=== PATIENT | male | born 1970 | race Caucasian/White ===

== ENCOUNTER → 2020-04-29 09:08 | Outpatient (BNVA) | payer OTHER, SELFPAY | PROVIDERS: Family Provider Family Medicine; PCP Family Medicine; Referring Provider Family Medicine; Visit Provider Anesthesiology Pain Medicine | DX: M54.42 Lumbago with sciatica, left side (principal); M54.41 Lumbago with sciatica, right side; M54.9 Dorsalgia, unspecified; Z79.891 Long term (current) use of opiate analgesic | CPT/HCPCS: 99205 ==

== ENCOUNTER → 2020-05-13 13:19 | Outpatient (BNVA) | payer OTHER, SELFPAY | PROVIDERS: Family Provider Family Medicine; PCP Family Medicine; Visit Provider Anesthesiology Pain Medicine | DX: M47.816 Spondylosis without myelopathy or radiculopathy, lumbar region (principal); M54.9 Dorsalgia, unspecified | CPT/HCPCS: 64493; 64494; 64495; J3490 ==

== ENCOUNTER → 2020-05-26 09:11 | Outpatient (BNVA) | payer OTHER, SELFPAY | PROVIDERS: Family Provider Family Medicine; PCP Family Medicine; Visit Provider Anesthesiology Pain Medicine | DX: M51.17 Intervertebral disc disorders with radiculopathy, lumbosacral region (principal); M54.9 Dorsalgia, unspecified | CPT/HCPCS: 99213 ==

== ENCOUNTER → 2020-06-09 12:50 | Outpatient (BNVA) | payer OTHER, SELFPAY | PROVIDERS: Family Provider Family Medicine; PCP Family Medicine; Visit Provider Anesthesiology Pain Medicine | DX: M54.9 Dorsalgia, unspecified (principal); M54.16 Radiculopathy, lumbar region | CPT/HCPCS: 64483; J1040; J3490 ==

== ENCOUNTER → 2020-06-24 09:37 | Outpatient (BNVA) | payer OTHER, SELFPAY | PROVIDERS: Family Provider Family Medicine; PCP Family Medicine; Visit Provider Anesthesiology Pain Medicine | DX: M47.816 Spondylosis without myelopathy or radiculopathy, lumbar region (principal); M54.16 Radiculopathy, lumbar region; M51.36 Other intervertebral disc degeneration, lumbar region; M25.551 Pain in right hip; M25.552 Pain in left hip; M47.812 Spondylosis without myelopathy or radiculopathy, cervical region; M54.9 Dorsalgia, unspecified; Z79.891 Long term (current) use of opiate analgesic | CPT/HCPCS: 99214 ==

== ENCOUNTER 2020-06-25 08:54 | Outpatient (CLI) | payer OTHER, SELFPAY ==
--- NOTE | 2020-06-25 09:04 | XR_ITS ---
WS: [id number] CERVICAL SPINE TECHNIQUE: 3 views of the cervical spine CLINICAL INFORMATION: pain COMPARISON: None. FINDINGS: Straightening of the normal cervical lordosis. Mild spondylitic changes. Normal prevertebral soft tis sues. Normal C1-2 articulation. Mild facet arthropathy in the mid cervical spine. No acute cervical s pine findings. XR/XR cervical spine 4-5V [id number] IMPRESSION: Straightening of the normal cervical lordosis with mild spondylitic changes.
--- NOTE | 2020-06-25 09:04 | XR_ITS ---
WS: [id number] HIPS BILATERAL TECHNIQUE: 5 views bilateral hips Including pelvis CLINICAL INFORMATION: bilateral hip pain COMPARISON: None. FINDINGS: Normal bilateral hips. Normal anatomic alignment. No acute fractures. Normal femoral necks bilaterall y. XR/XR hip BI 3-4V wo/w pel [id number] IMPRESSION: Normal bilateral hips
== END 2020-06-25 08:55 | disposition home or self-care (01) ==
LOC: RADWPI 08:58
PROVIDERS: Family Provider Family Medicine; PCP Family Medicine; Visit Provider Anesthesiology Pain Medicine
DX: M54.2 Cervicalgia (principal); M25.551 Pain in right hip; M25.552 Pain in left hip
CPT/HCPCS: 72050; 73522

== ENCOUNTER → 2020-07-22 11:10 | Outpatient (BNVA) | payer OTHER, SELFPAY | PROVIDERS: Family Provider Family Medicine; PCP Family Medicine; Visit Provider Anesthesiology Pain Medicine | DX: G89.29 Other chronic pain (principal); M47.816 Spondylosis without myelopathy or radiculopathy, lumbar region; M51.36 Other intervertebral disc degeneration, lumbar region; M51.17 Intervertebral disc disorders with radiculopathy, lumbosacral region; M54.9 Dorsalgia, unspecified; M25.559 Pain in unspecified hip; M54.2 Cervicalgia | CPT/HCPCS: 99213; 99214 ==

== ENCOUNTER → 2020-09-03 08:41 | Outpatient (BNVA) | payer OTHER, SELFPAY | PROVIDERS: Family Provider Family Medicine; PCP Family Medicine; Visit Provider Internal Medicine | DX: M25.50 Pain in unspecified joint (principal); M47.26 Other spondylosis with radiculopathy, lumbar region; Z11.59 Encounter for screening for other viral diseases; M10.9 Gout, unspecified; Z87.891 Personal history of nicotine dependence | CPT/HCPCS: 99204 ==

== ENCOUNTER 2020-09-03 10:08 | Outpatient (CLI) | payer OTHER, SELFPAY ==
--- NOTE | 2020-09-03 10:25 | XR_ITS ---
WS: [id number] XR elbow RT 2V 29304 REASON FOR EXAM: M47.816 - Spondylosis without myelopathy or radiculopathy, lumbar region FINDINGS: The joint spaces of the right elbow are well preserved. No fracture or other focal bony abnormality is noted. Small enthesophyte from the triceps insertion on the ulna. No soft tissue abnormality. XR/XR elbow RT 2V 44023 IMPRESSION: No significant abnormality.
--- NOTE | 2020-09-03 10:25 | XR_ITS ---
WS: [id number] XR hand LT 2V 29462 REASON FOR EXAM: M47.816 - Spondylosis without myelopathy or radiculopathy, lumbar region FINDINGS: The joints of the left hand are well preserved. No fracture or other focal bony abnormality. No soft tissue abnormality. XR/XR hand LT 2V 70611 IMPRESSION: No significant abnormality.
--- NOTE | 2020-09-03 10:25 | XR_ITS ---
WS: [id number] XR hand RT 2V 88748 REASON FOR EXAM: M47.816 - Spondylosis without myelopathy or radiculopathy, lumbar region FINDINGS: The joints of the right hand are well preserved. No fracture or other focal bony abnormality. No soft tissue abnormality. XR/XR hand RT 2V 30746 IMPRESSION: No significant abnormality.
--- NOTE | 2020-09-03 10:25 | XR_ITS ---
WS: [id number] XR foot LT 2V 45450 REASON FOR EXAM: M25.50 - Pain in unspecified joint FINDINGS: The joint spaces of the forefoot are well preserved. No fracture or other significant bony abnormality. Joint spaces of the midfoot are well preserved. No fracture or other significant bony lesion identified. Joint spaces of the hindfoot are well preserved. No fracture or other significant bony abnormality identified. No soft tissue abnormality identified. XR/XR foot LT 2V 62304 IMPRESSION: No significant abnormality.
--- NOTE | 2020-09-03 10:25 | XR_ITS ---
WS: [id number] XR elbow LT 2V 26594 REASON FOR EXAM: M47.816 - Spondylosis without myelopathy or radiculopathy, lumbar region FINDINGS: The joint spaces of the left elbow are well preserved. No fracture or other focal bony abnormality. No soft tissue abnormality. XR/XR elbow LT 2V 93778 IMPRESSION: No significant abnormality.
--- NOTE | 2020-09-03 10:25 | XR_ITS ---
WS: [id number] XR sacroiliac jts m 3V 81428 REASON FOR EXAM: L40.9 - Psoriasis, unspecified FINDINGS: Normal joint interval of the sacroiliac joints. No marginal sclerosis or erosion. No soft tissue abnormality. XR/XR sacroiliac jts m 3V 49027 IMPRESSION: Normal sacroiliac joints.
--- NOTE | 2020-09-03 10:25 | XR_ITS ---
WS: [id number] XR foot RT 2V 11488 REASON FOR EXAM: M25.50 - Pain in unspecified joint FINDINGS: The joint spaces of the forefoot are well preserved. No fracture or other significant focal bony abnormality. The joint spaces of the midfoot are well preserved. No fracture or other significant bony abnormality Joint spaces of the hindfoot are well preserved. No fracture or other significant bony abnormality identified. No soft tissue abnormality. XR/XR foot RT 2V 77906 IMPRESSION: No significant abnormality.
[2020-09-03 11:57] LABS: Basophils # 0.1 10^3/uL (0.0-0.1); Basophils % 0.6 %; Eosinophils # 0.2 10^3/uL (0.0-0.8); Eosinophils % 1.7 %; Hemoglobin 15.8 g/dL (11.7-16.6); Lymphocytes # 2.2 10^3/uL (0.8-4.8); Mean Corpuscular HGB Conc 33.6 g/dL (30.0-36.0); Mean Corpuscular Hemoglobin 30.8 pg (28.0-34.0); Mean Corpuscular Volume 91.6 fL (80-94); Mean Platelet Volume 10.9 fL (7.4-10.4); Monocytes # 0.6 10^3/uL (0.2-0.9); Monocytes % 6.7 %; Neutrophils # 6.19 10^3/uL (1.8-7.7); Neutrophils % 66.7 %; Nucleated Red Blood Cells % 0 %; Platelet Count 226 10^3/cmm (130-400); Red Blood Count 5.13 10^6/uL (4.1-5.3); Red Cell Distribution Width 12.3 % (12.1-15.1); White Blood Count 9.3 10^3/uL (4.0-10.0)
[2020-09-03 12:18] LABS: Alanine Aminotransferase 46 U/L (0-41); Albumin Level 4.4 g/dL (3.5-5.2); Alkaline Phosphatase 88 IU/L (40-130); Anion Gap 13.1 (5-19); Aspartate Amino Transferase 32 U/L (0-40); Blood Urea Nitrogen 18 mg/dL (6-20); C Reactive Protein 2.8 mg/L (0.0-4.9); Calcium 9.4 mg/dL (8.5-10.5); Carbon Dioxide 25 mmol/L (22-29); Chloride 105 mmol/L (98-107); Creatine Phosphokinase 154 U/L (39-308); Globulin 3.4 g/dL (1.3-4.6); Glomerular Filtration Rate 79.4 mL/min (90-130); Glucose 102 mg/dL (65-115); Osmolality Calculated 290 mOsm/kg (285-295); Phosphorus 3.3 mg/dL (2.5-4.5); Potassium 4.1 mmol/L (3.5-5.1); Sodium 139 mmol/L (136-145); Testosterone Total 268.4 ng/dL (249-836); Thyroid Stimulating Hormone 4.89 uIU/mL (0.27-4.20); Total Bilirubin 0.3 mg/dL (0.15-1.2); Total Protein 7.8 g/dL (6.6-8.7); Uric Acid 8.3 mg/dL (3.4-7.0)
[2020-09-03 12:23] LABS: Calcium 9.8 mg/dL (8.5-10.5)
[2020-09-03 12:40] LABS: Hepatitis B Core AB, Total Non-Reactive (Nonreactive); Hepatitis B Surface Antigen Non-Reactive (Nonreactive); Hepatitis C Virus Antibody Non-Reactive (Nonreactive)
[2020-09-03 12:44] LABS: Erythrocyte Sedimentation Rate 9 mm/hr (0-10)
[2020-09-03 13:17] LABS: 25 Hydroxy Vitamin D 25 ng/mL (30-100); Ferritin 846 ng/mL (30-400); Iron 79 ug/dL (59-158)
[2020-09-04 00:48] LABS: Parathyroid Hormone 16.2 pg/mL (15-65)
[2020-09-04 13:58] LABS: Cyclic Citrullinated Peptide <16 UNITS
[2020-09-04 14:28] LABS: THYROID PEROXIDASE ANTIBODIES 236 IU/mL (<9)
[2020-09-04 15:58] LABS: CENTROMERE B ANTIBODY <1.0 NEG AI (<1.0 NEG); JO-1 ANTIBODY <1.0 NEG AI (<1.0 NEG); RNP ANTIBODY <1.0 NEG AI (<1.0 NEG); SCL-70 ANTIBODY <1.0 NEG AI (<1.0 NEG); SJOGREN'S ANTIBODY (SS-A) <1.0 NEG AI (<1.0 NEG); SM ANTIBODY <1.0 NEG AI (<1.0 NEG); SS-B <1.0 NEG AI (<1.0 NEG)
[2020-09-05 10:04] LABS: COMPLEMENT COMPONENT C3C 171 mg/dL (82-185); COMPLEMENT COMPONENT C4C 30 mg/dL (15-53)
[2020-09-05 13:07] LABS: COMPLEMENT, TOTAL (CH50) >60 U/mL (31-60)
[2020-09-05 15:09] LABS: ANA SCREEN, IFA NEGATIVE (NEGATIVE)
[2020-09-06 17:53] LABS: HLA-B27 NEGATIVE (NEGATIVE)
[2020-09-07 14:53] LABS: DNA AB (DS) CRITHIDIA,IFA NEGATIVE (NEGATIVE)
== END 2020-09-03 10:09 | disposition home or self-care (01) ==
PROVIDERS: PCP Family Medicine; Visit Provider Internal Medicine
DX: Z51.81 Encounter for therapeutic drug level monitoring (principal); M47.816 Spondylosis without myelopathy or radiculopathy, lumbar region; M10.9 Gout, unspecified; M25.50 Pain in unspecified joint; L40.9 Psoriasis, unspecified; D86.9 Sarcoidosis, unspecified
CPT/HCPCS: 36415; 72202; 73070; 73120; 73620; 80053; 82306; 82310; 82550; 82728; 83540; 83735; 83970; 84100; 84403; 84443; 84550; 85025; 85651; 86140; 86431; 86704; 86803; 86812; 87340

== ENCOUNTER → 2020-09-11 08:42 | Outpatient (BNVA) | payer OTHER, SELFPAY | PROVIDERS: PCP Family Medicine; Visit Provider Anesthesiology Pain Medicine | DX: G89.29 Other chronic pain (principal); M51.17 Intervertebral disc disorders with radiculopathy, lumbosacral region; M51.36 Other intervertebral disc degeneration, lumbar region; M47.816 Spondylosis without myelopathy or radiculopathy, lumbar region; M54.2 Cervicalgia; M54.9 Dorsalgia, unspecified; M25.551 Pain in right hip; M25.552 Pain in left hip; Z79.891 Long term (current) use of opiate analgesic | CPT/HCPCS: 99214 ==

== ENCOUNTER → 2020-09-23 08:23 | Outpatient (BNVA) | payer OTHER, SELFPAY | PROVIDERS: PCP Family Medicine; Visit Provider Internal Medicine | DX: M10.9 Gout, unspecified (principal); M25.50 Pain in unspecified joint; E07.9 Disorder of thyroid, unspecified; R79.89 Other specified abnormal findings of blood chemistry; R74.8 Abnormal levels of other serum enzymes; M54.2 Cervicalgia; M47.816 Spondylosis without myelopathy or radiculopathy, lumbar region; Z79.899 Other long term (current) drug therapy; Z87.891 Personal history of nicotine dependence | CPT/HCPCS: 36415; 82550; 82728; 83540; 83735; 99214 ==

== ENCOUNTER 2020-09-24 11:56 | Outpatient (CLI) | payer OTHER, SELFPAY ==
--- NOTE | 2020-09-24 12:03 | XRR_ITS ---
PROCEDURE INFORMATION: Exam: XR Cervical Spine, 2 or 3 Views Exam date and time: 09/24/2020 1:02 PM Age: 50 years old Clinical indication: Condition or disease; Other: E07.9 - disorder of thyroid, unspecified; Prior surgery; Surgery type: RT shoulder TECHNIQUE: Imaging protocol: XR of the cervical spine, 2 or 3 views. COMPARISON: CR XR cervical spine 4-5V 27218 06/25/2020 9:14 AM FINDINGS: Bones/joints: Degenerative change. anatomic alignment, without instability. Soft tissues: Partial obscuration of C7 by overlying soft tissues. Ligamentous calcification. XR/XR cervical spine fl/ex [id number] IMPRESSION: Degenerative change.
--- NOTE | 2020-09-24 12:03 | XRR_ITS ---
PROCEDURE INFORMATION: Exam: XR Lumbosacral Spine, 2 or 3 Views Exam date and time: 09/24/2020 1:02 PM Age: 50 years old Clinical indication: Condition or disease; Other: Disorder of thyroid, unspecified; Prior surgery; Surgery type: Lt shoulder; Additional info: E07.9 - disorder of thyroid, unspecified TECHNIQUE: Imaging protocol: XR of the lumbosacral spine, 2 or 3 views. COMPARISON: CR XR sacroiliac jts m 3V [id number] 09/03/2020 11:16 AM FINDINGS: Bones/joints: Degenerative change. No acute bony injury or malalignment. Soft tissues: Unremarkable. Gastrointestinal tract: Small bowel dilatation in the incompletely visualized right abdomen. XR/XR lumbar spine 2-3V* [id number] IMPRESSION: Degenerative change.
--- NOTE | 2020-09-24 12:03 | XRR_ITS ---
PROCEDURE INFORMATION: Exam: XR Thoracic Spine, 3 Views Exam date and time: 09/24/2020 1:02 PM Age: 50 years old Clinical indication: Condition or disease; Other: E07.9 - disorder of thyroid, unspecified TECHNIQUE: Imaging protocol: XR of the thoracic spine, 3 views. COMPARISON: No relevant prior studies available. FINDINGS: Bones/joints: Degenerative change. No acute bony injury or malalignment. Soft tissues: Unremarkable. XR/XR thoracic spine 3V* [id number] IMPRESSION: Degenerative change.
== END 2020-09-24 11:57 | disposition home or self-care (01) ==
LOC: RAD 12:01
PROVIDERS: PCP Family Medicine; Visit Provider Internal Medicine
DX: E07.9 Disorder of thyroid, unspecified (principal); R79.89 Other specified abnormal findings of blood chemistry; M10.9 Gout, unspecified; M25.50 Pain in unspecified joint; M54.2 Cervicalgia
CPT/HCPCS: 72040; 72072; 72100

== ENCOUNTER 2020-09-30 00:07 | Inpatient (IN) | payer OTHER, SELFPAY ==
[2020-09-30] VITALS (112 sets, daily range): BP systolic 86–155; BP diastolic 44–108; PULSE 83–145; RESP 7–44; TEMP 36.5–37.3; O2SAT 90–98; BMI 36.6
--- NOTE | 2020-09-30 00:22 | CTR_ITS ---
PROCEDURE INFORMATION: Exam: CT Abdomen And Pelvis With Contrast Exam date and time: 09/30/2020 12:37 AM Age: 50 years old Clinical indication: Abdominal pain; Localized; Right; Prior surgery; Surgery type: Hernia; Additional info: Abd pain TECHNIQUE: Imaging protocol: Computed tomography of the abdomen and pelvis with intravenous contrast. Radiation optimization: All CT scans at this facility use at least one of these dose optimization techniques: automated exposure control; mA and/or kV adjustment per patient size (includes targeted exams where dose is matched to clinical indication); or iterative reconstruction. Contrast material: OMNI 300; Contrast volume: 95 ml; Contrast route: INTRAVENOUS (IV); COMPARISON: CT abdomen pelvis w con* [id number] 12/27/2013 3:44 PM RADIATION DOSE METRICS: Total DLP (mGy-cm): 1890.24 FINDINGS: Liver: Normal. No mass. Gallbladder and bile ducts: Normal. No calcified stones. No ductal dilation. Pancreas: Normal. No ductal dilation. Spleen: Normal. No splenomegaly. Adrenal glands: Normal. No mass. Kidneys and ureters: No hydronephrosis. New exophytic cyst measuring 1 cm off lower pole left kidney is likely benign. Stomach and bowel: Unremarkable. No obstruction. No mucosal thickening. Appendix: No evidence of appendicitis. Intraperitoneal space: Disseminated free intraperitoneal air is noted in addition to gas scattered in bowel mesentery and likely arises from perforated sigmoid diverticulitis. Vasculature: Minimal vascular calcifications are noted. No findings of abdominal aortic aneurysm. Lymph nodes: Unremarkable. No enlarged lymph nodes. Urinary bladder: Unremarkable as visualized. Reproductive: Unremarkable as visualized. Bones/joints: No acute fracture. Soft tissues: Unremarkable. CT/CT abdomen pelvis w con* [id number] IMPRESSION: Free intraperitoneal air likely arising from perforated sigmoid diverticulitis in the right pelvis. COMMENTS: Consistent with the [employer]'s Incidental Findings Committee white paper (J Am Barron Radiol 2018): Any incidental renal lesion less than 1 cm or classified as too small to characterize, or any incidental cystic renal lesion characterized as simple-appearing, is likely benign. No follow-up imaging is recommended for these lesions per consensus recommendations based on imaging criteria. Radiation Dose CTDIVOL = (mGy): DLP = 1890.24 (mGy-cm)
--- NOTE | 2020-09-30 00:24 | W.ED.ABDPA2 ---
HPI - Abdominal Pain General: Chief Complaint: Abdominal Pain Stated Complaint: severe right side abdominal pain Time Seen by Provider: 09/30/20 00:18 Source: patient Mode of arrival: ambulatory Limitations: no limitations History of Present Illness: HPI narrative: 50-year-old male states he been having severe abdominal pain began tonight. He states it is diffuse but mainly in his suprapubic region. He states pain is sharp and worse with palpation. Denies any vomiting or diarrhea. States pain is currently 9 out of 10. Denies any pain with urination but states he has had some difficulty urinating. Denies any constipation. Associated Symptoms: Denies chills, dysuria and fever(s) Review of Systems Const: Denies: fever(s), chills, body aches or change in appetite Eyes: Denies: blurry vision or eye discomfort ENMT: Denies: throat pain or dental pain Card: Denies: chest pain Resp: Denies: dyspnea GI: Reports: abdominal pain : Denies: dysuria Musc: Denies: neck pain or back pain Skin/Breast: Denies: rash Neuro: Denies: headache(s) Psych: Denies: depression Rivas/Lymph: Denies: easy bruising All/Imm: Denies: urticaria PFSH ED PFSH: Family History Father Spondylosis Aorta aneurysm Mother Cancer Depression Social History Smoking and tobacco status: former smoker Alcohol intake: current Alcohol intake frequency: holidays/special occasions only Alcohol type: beer History of recent travel: No Physical Exam Const: COMMON NORMALS: no acute distress, patient oriented x3 and healthy appearing HENMT: COMMON NORMALS: normocephalic and atraumatic HEAD & SCALP: normocephalic and atraumatic Eye: COMMON NORMALS: Equal, round and reactive pupils present and EOMs intact bilaterally PUPIL: Yes Equal, round and reactive pupils present Neck/C-Spine: COMMON NORMALS: full ROM and supple Chest: COMMONS NORMALS: normal inspection of the chest and normal palpation of entire chest wall Resp: COMMON NORMALS: normal respiratory effort, No retractions, No use of accessory muscles and clear to auscultation bilaterally AUSCULTATION: clear to auscultation bilaterally Cardio: COMMON NORMALS: regular rate, regular rhythm and No murmurs present (Cardio) RATE: regular rate RHYTHM: regular rhythm GI: COMMON NORMALS: Normal to inspection, nondistended, normoactive bowel sounds present, Soft to palpation and no masses PALPATION: Yes Soft to palpation and Yes Tenderness to palpation present (GI) (suprapubic) Extremity: COMMON NORMALS: normal to inspection and full ROM Neuro: COMMON NORMALS: patient oriented x3, moves all extremities and no focal motor deficits Psych: COMMON NORMALS: mental status grossly normal, Normal thought process present and cooperative THOUGHT PROCESS: Normal thought process present Skin: COMMON NORMALS: no rashes or lesions noted and no wounds GENERAL SKIN EXAM: no rashes or lesions noted Course Vital Signs: Vital signs: Vital Signs Temperature 99.1 F 09/30/20 04:55 Pulse Rate 125 H 09/30/20 04:55 Respiratory Rate 34 H 09/30/20 04:55 Blood Pressure 131/79 09/30/20 04:55 Pulse Oximetry 95 09/30/20 04:55 MDM - Abdominal Pain MDM Narrative: Medical decision making narrative: 1229 Patient presents with abdominal pain CT showed diverticulitis with perforation. Patient's white count lactate been stable and his blood pressures been stable here. I spoke to surgeon on-call Dr. Salas and will admit to the ICU and started on antibiotics. I did inform her of the CT results including the free air. 0415 patient has became tachycardic and blood pressures dropped to 92/74. He is diaphoretic. His repeat lactate is unchanged. I called Dr. Salas and informed him of these findings occluding his lowering of his blood pressure. I will give him IV fluids and Dr. Salas is coming in to see the patient currently 0510 Dr. Salas is been hearing seeing the patient in the ER. Will take him to the OR at this time. Patient's blood pressure is 96/70 heart rate 127. Lab Data: Labs: Lab Results 09/30/20 09/30/20 09/30/20 Range/Units 00:30 00:30 00:30 WBC 6.7 (4.0-10.0) 10^3/ uL RBC 5.14 (4.1-5.3) 10^6/u L Hgb 15.6 (11.7-16.6) g/dL Hct 46.4 (42.0-52.0) % MCV 90.3 (80-94) fL MCH 30.4 (28.0-34.0) pg MCHC 33.6 (30.0-36.0) g/dL RDW 11.6 L (12.1-15.1) % Plt Count 307 (130-400) 10^3/c mm MPV 10.4 (7.4-10.4) fL Neut % (Auto) 78.4 % Lymph % (Auto) 14.1 % [place] % (Auto) 5.1 % Eos % (Auto) 0.8 % Baso % (Auto) 0.5 % Neut # (Auto) 5.23 (1.8-7.7) 10^3/u L Lymph # (Auto) 0.9 (0.8-4.8) 10^3/u L [place] # (Auto) 0.3 (0.2-0.9) 10^3/u L Eos # (Auto) 0.1 (0.0-0.8) 10^3/u L Baso # (Auto) 0.0 (0.0-0.1) 10^3/u L Nucleated RBC % (a uto) 0 % Nucleated RBCs # 0.0 /100WBC Sodium 135 L (136-145) mmol/L Potassium 3.5 (3.5-5.1) mmol/L Chloride 94 L (98-107) mmol/L Carbon Dioxide 28 (22-29) mmol/L Anion Gap 16.5 (5-19) BUN 18 (6-20) mg/dL Creatinine 1.2 (0.7-1.2) mg/dL GFR Calculation 64.4 L (90-130) mL/min Glucose 218 H (65-115) mg/dL Calculated Osmolal ity 289 (285-295) mOsm/k g Lactate 2.4 H (0.5-2.2) mmol/L Calcium 9.4 (8.5-10.5) mg/dL Total Bilirubin 0.4 (0.15-1.2) mg/dL AST 32 (0-40) U/L ALT 47 H (0-41) U/L Alkaline Phosphata se 91 (40-130) IU/L Total Protein 7.5 (6.6-8.7) g/dL Albumin 3.9 (3.5-5.2) g/dL Globulin 3.6 (1.3-4.6) g/dL Lipase 42 (13-60) U/L Imaging Data ^: CT Abd/Pel: Attestation: I personally reviewed and interpreted this imaging study as follows: Radiologist's impression: [address] [address] [address] Scan Report Signed with Addenda Patient: Bogdan Vernon Unit #: [id number] : 1970 Age/Sex: 50 / M ADM Date: 09/30/20 Loc: ER Room/Bed: Attending Dr: Ordering Provider/Ordering MD: Michelle Shea MD Date of Service: 09/30/20 Procedure(s): CT abdomen pelvis w con* [id number] Accession Number(s): [id number] Report Number: [id number]/CT abdomen pelvis w con* [id number] THIS REPORT CONTAINS FINDINGS THAT MAY BE CRITICAL TO PATIENT CARE. The findings were verbally communicated via telephone conference with michelle Shea at 1:23 AM NETWORK TECHNICAL ANALYST on 09/30/2020. The findings were acknowledged and understood. Radiation Dose CTDIVOL = (mGy): DLP = 1890.24 (mGy-cm) Addendum Dictated By: Rodney Andrea MD Addendum Signed By: Rodney Andrea MD Signed Date/Time: 09/30/2010 19 Addendum Cosigned By: PROCEDURE INFORMATION: Exam: CT Abdomen And Pelvis With Contrast Exam date and time: 09/30/2020 12:37 AM Age: 50 years old Clinical indication: Abdominal pain; Localized; Right; Prior surgery; Surgery type: Hernia; Additional info: Abd pain TECHNIQUE: Imaging protocol: Computed tomography of the abdomen and pelvis with intravenous contrast. Radiation optimization: All CT scans at this facility use at least one of these dose optimization techniques: automated exposure control; mA and/or kV adjustment per patient size (includes targeted exams where dose is matched to clinical indication); or iterative reconstruction. Contrast material: OMNI 300; Contrast volume: 95 ml; Contrast route: INTRAVENOUS (IV); COMPARISON: CT abdomen pelvis w con* [id number] 12/27/2013 3:44 PM RADIATION DOSE METRICS: Total DLP (mGy-cm): 1890.24 FINDINGS: Liver: Normal. No mass. Gallbladder and bile ducts: Normal. No calcified stones. No ductal dilation. Pancreas: Normal. No ductal dilation. Spleen: Normal. No splenomegaly. Adrenal glands: Normal. No mass. Kidneys and ureters: No hydronephrosis. New exophytic cyst measuring 1 cm off lower pole left kidney is likely benign. Stomach and bowel: Unremarkable. No obstruction. No mucosal thickening. Appendix: No evidence of appendicitis. Intraperitoneal space: Disseminated free intraperitoneal air is noted in addition to gas scattered in bowel mesentery and likely arises from perforated sigmoid diverticulitis. Vasculature: Minimal vascular calcifications are noted. No findings of abdominal aortic aneurysm. Lymph nodes: Unremarkable. No enlarged lymph nodes. Urinary bladder: Unremarkable as visualized. Reproductive: Unremarkable as visualized. Bones/joints: No acute fracture. Soft tissues: Unremarkable. CT/CT abdomen pelvis w con* [id number] IMPRESSION: Free intraperitoneal air likely arising from perforated sigmoid diverticulitis in the right pelvis. EKG Data ^: EKG 1: Attestation: I personally reviewed and interpreted this EKG as follows: EKG interpretation date: 09/30/20 EKG interpretation time: 04:30 Interpretation: sinus tach hr [address] ar t wave abnormalities qrs 82 qtc 383 Critical Care Time Critical Care Time: Critical Care Time: Yes Total Critical Care Time: 35 Attestation: This case had a high probability of a clinically significant, sudden, or life threatening deterioration of this patient's condition which required my full and direct attention, intervention and personal management. Discharge Plan Discharge Patient Disposition: Admitted As Inpatient Admit Provider: Dontrell Salas Clinical Impression: Diverticulitis of colon with perforation Qualifiers: Diverticulitis bleeding: without bleeding Qualified Code(s): K57.20 - Diverticulitis of large intestine with perforation and abscess without bleeding Condition: Stable Coding Level of Care Code ED Clam Digger for Chg Fwd Exam Comprehensive
[2020-09-30] MEDS: HYDROmorphone 1 mg/mL INJ 1 mL IVP ×4 (00:36→04:41)
[2020-09-30] MEDS: ondansetron 2 mg/ML SDV 2 mL 4 MG IVP ×3 (00:36→20:27)
[2020-09-30 00:43] LABS: Basophils % 0.5 %; Eosinophils # 0.1 10^3/uL (0.0-0.8); Eosinophils % 0.8 %; Hematocrit 46.4 % (42.0-52.0); Hemoglobin 15.6 g/dL (11.7-16.6); Lymphocytes # 0.9 10^3/uL (0.8-4.8); Lymphocytes % 14.1 %; Mean Corpuscular HGB Conc 33.6 g/dL (30.0-36.0); Mean Corpuscular Hemoglobin 30.4 pg (28.0-34.0); Mean Corpuscular Volume 90.3 fL (80-94); Mean Platelet Volume 10.4 fL (7.4-10.4); Monocytes # 0.3 10^3/uL (0.2-0.9); Monocytes % 5.1 %; Neutrophils # 5.23 10^3/uL (1.8-7.7); Neutrophils % 78.4 %; Nucleated Red Blood Cells % 0 %; Platelet Count 307 10^3/cmm (130-400); Red Blood Count 5.14 10^6/uL (4.1-5.3); Red Cell Distribution Width 11.6 % (12.1-15.1); White Blood Count 6.7 10^3/uL (4.0-10.0)
[2020-09-30] MEDS: iohexol 300 mg/mL 100 mL Btl IV (00:50)
[2020-09-30 01:04] LABS: Albumin Level 3.9 g/dL (3.5-5.2); Alkaline Phosphatase 91 IU/L (40-130); Anion Gap 16.5 (5-19); Aspartate Amino Transferase 32 U/L (0-40); Blood Urea Nitrogen 18 mg/dL (6-20); Calcium 9.4 mg/dL (8.5-10.5); Carbon Dioxide 28 mmol/L (22-29); Chloride 94 mmol/L (98-107); Globulin 3.6 g/dL (1.3-4.6); Glomerular Filtration Rate 64.4 mL/min (90-130); Glucose 218 mg/dL (65-115); Lipase 42 U/L (13-60); Osmolality Calculated 289 mOsm/kg (285-295); Potassium 3.5 mmol/L (3.5-5.1); Sodium 135 mmol/L (136-145); Total Bilirubin 0.4 mg/dL (0.15-1.2); Total Protein 7.5 g/dL (6.6-8.7)
[2020-09-30] MEDS: piperacillin-tazobactam 3.375 GM in sodium chloride 0.9% (plus) 50 ML IV ×3 (01:10→16:47)
[2020-09-30 01:15] LABS: Alanine Aminotransferase 47 U/L (0-41)
[2020-09-30 01:31] LABS: Lactate (Lactic Acid level) 2.4 mmol/L (0.5-2.2)
[2020-09-30] MEDS: sodium chloride 0.9% 1,000 ML 150 ML IV (02:49)
[2020-09-30 03:53] LABS: Add Urine Microscopic? NO
[2020-09-30 04:14] LABS: Lactate (Lactic Acid level) 2.8 mmol/L (0.5-2.2); Urine Appearance Clear (CLEAR); Urine Color Yellow (Yellow)
[2020-09-30 04:15] LABS: Bilirubin Urine Neg (Negative); Blood Urine Neg (Negative); Glucose Urine UA Norm (Normal); Ketones Urine Negative (Negative); Leukocyte Esterase Urine Negative (Negative); Nitrate Urine Negative (Negative); Protein Urine Neg (Negative); Urobilinogen Urine Norm (Negative)
--- NOTE | 2020-09-30 04:21 | ECG_ITS ---
[facility] Test Date: 2020-09-30 Pat Name: Bogdan Vernon Department: Room: [facility] Gender: Male Corporate Wellness Coordinator: : 1970 Requested By: Michelle Shea Order Number: [id number] Reading MD: ARCADIO GRANADOS Measurements Intervals [place] Rate: 138 P: 28 KS: 137 QRS: 22 QRSD: 82 T: 58 QT: 302 QTc: 459 Interpretive Statements SINUS TACHYCARDIA NONSPECIFIC ST & T-WAVE ABNORMALITY ABNORMAL RHYTHM ECG INTERPRETATION BASED ON A DEFAULT AGE OF 40 YEARS No previous ECG available for comparison Electronically Signed On 09-30-2020 19:58:21 HOSEMAN by ARCADIO GRANADOS [email or web address] You [facility] hospitalRiskalyze/store/NU/[id number] f
--- NOTE | 2020-09-30 04:25 | XRR_ITS ---
PROCEDURE INFORMATION: Exam: XR Chest, 1 View Exam date and time: 09/30/2020 4:44 AM Age: 50 years old Clinical indication: Shortness of breath; Chest pain; Type not specified; Prior surgery; Surgery type: Hernia; Patient HX: Elevated heart rate, right sided pain; Additional info: Cp TECHNIQUE: Imaging protocol: XR of the chest Views: 1 view. COMPARISON: 1. [place] [facility] [place] 2 views 11/24/2017 7 2. Impression: 3. Two-view chest 11/24/2017. FINDINGS: Lungs: Diminutive lung volumes. Interstitial opacities or atelectasis in the lower lungs. Pleural space: Unremarkable. No pleural effusion. No pneumothorax. Heart/Mediastinum: Unremarkable. No cardiomegaly. Bones/joints: Unremarkable. Intraperitoneal space: Free air below the hemidiaphragms has previously been reported at the time of CT earlier on the same date. Gastrointestinal tract: Moderate gas distention of bowel in the upper abdomen. XR/XR chest 1V portable [id number] IMPRESSION: 1. Free intraperitoneal air previously reported. 2. Atelectasis lower lungs.
[2020-09-30] MEDS: sodium chloride 0.9% 1,000 ML 999 ML IV ×2 (04:40)
--- NOTE | 2020-09-30 04:48 | PC.NURSE ---
BP verified. Pt diaphoretic. Dr Shea notified. Pt moved to room Trauma 11 at this time. Surgeon contacted by Dr Shea. Pt changed to gown, clothing and personal items removed.
[2020-09-30 05:26] LABS: INR 1.03 (0.8-1.2)
--- NOTE | 2020-09-30 05:27 | PM.HP ---
Providers/Chief Complaint Admitting Physician: Dontrell Salas MD Primary Care Provider: Linwood Ocasio DO Chief Complaint: severe right side abdominal pain History of Present Illness Bogdan Vernon is a 50 year old male who presented to the ER last night with 1 week history of worsening generalized abdominal pain. Patient states that the pain was mainly in the right lower quadrant and started about a week ago and initially thought that he was constipated. He took some laxative and subsequently started having bowel movements but his pain persisted and eventually got worse to the point where he started having nausea and vomiting last night and therefore presented to the ER. Patient denies any recent episodes of diverticulitis in the past. No prior colonoscopy, no family history of colon cancer. No prior abdominal surgeries. Review of Systems General: Reports: 10 or more systems reviewed and unremarkable except in HPI and below Medications/Allergies Home Medications Medication Instructions Recorded Confirmed Last Taken Type ibuprofen 200 mg capsule 200 mg PO Q6H PRN 04/29/20 09/23/20 Unknown History timolol maleate 0.25 % eye drops 1 drop OPHTHALMIC (EYE) DAILY 04/29/20 09/23/20 Unknown History indomethacin 50 mg capsule 50 mg PO TID 09/03/20 09/23/20 Unknown History latanoprost 0.005 % eye drops 1 drp OPHTHALMIC (EYE) DAILY 09/03/20 09/23/20 Unknown History lisinopril 20 mg tablet 20 mg PO DAILY 09/03/20 09/23/20 Unknown History prednisone 5 mg tablet See Rx Instructions PO DAILY #20 09/03/20 09/23/20 Unknown Rx tab gabapentin 600 mg tablet 600 mg PO TID #90 tab 09/11/20 09/23/20 Unknown Rx hydrocodone 5 mg-acetaminophen 325 1 tab PO DAILY PRN 7 Days #7 tab 09/11/20 09/23/20 Unknown Rx mg tablet methocarbamol 750 mg tablet 750 mg PO BID #60 tab 09/11/20 09/23/20 Unknown Rx allopurinol 100 mg tablet 100 mg PO DAILY #30 tab 09/23/20 09/23/20 Unknown Rx cholecalciferol (vitamin D3) 1,250 50,000 unit PO .qweek #14 cap 09/23/20 09/23/20 Unknown Rx mcg (50,000 unit) capsule colchicine 0.6 mg tablet 0.6 mg PO DAILY #30 tab 09/23/20 09/23/20 Unknown Rx tizanidine 4 mg capsule 4 mg PO BID PRN 09/23/20 09/23/20 Unknown History Allergies Allergy/AdvReac Type Severity Reaction Status Date / Time latex Allergy rips skin Verified 09/30/20 00:24 PFSH Acute PFSH: Medical History Arthritis of facet joint of lumbar spine Chronic low back pain Gout HTN (hypertension), benign Surgical History H/O knee surgery Hx of inguinal hernia surgery Family History Father Spondylosis Aorta aneurysm Mother Cancer Depression Social History Smoking and tobacco status: former smoker Alcohol intake: current Alcohol intake frequency: holidays/special occasions only Alcohol type: beer History of recent travel: No Vitals/I&O/Wt Last Vital Signs Temp 99.1 F 09/30/20 04:55 Pulse 125 H 09/30/20 04:55 Resp 34 H 09/30/20 04:55 BP 131/79 09/30/20 04:55 Pulse Ox 95 09/30/20 04:55 09/29/20 09/29/20 09/30/20 14:59 22:59 06:59 Intake Total 50 / 50 Balance 50 / 50 Weight last 48 hrs Weight 255 lb Physical Exam Narrative: EXAM NARRATIVE: HEENT: Normocephalic Eye: Sclera /conjunctiva normal Respiratory and chest: Bilateral clear breath sounds on auscultation Cardiovascular: Normal S1 and S2 heart sounds Abdomen: Soft to palpation, generalized tenderness, guarding present Neurological: Oriented to place person and time Skin: Intact, no lesions appreciated on gross exam Data : 09/30/20 00:30 09/30/20 00:30 A&P Assessment and plan (1) Diverticulitis of colon with perforation: 50-year-old male with 1 week history of abdominal pain associate with nausea and vomiting noted on CT scan to have perforated sigmoid diverticulitis with free air. Patient initially was hemodynamically stable but over the last hour and a half has become hypotensive and tachycardic in spite of receiving 3 L of fluid. EKG showed sinus tachycardia. Patient had been started on steroids by his javascript programmer but he never took the medications. Discussed the findings of the CT scan as well as his hemodynamic status with the patient and his and its implications and the need to proceed emergently for laparoscopic possible open sigmoid colectomy with high likelihood for colostomy. Procedure, risks, benefits and alternatives have been discussed with the patient who wishes to proceed with surgery. Status: Acute Qualifiers: Diverticulitis bleeding: without bleeding Qualified Code(s): K57.20 - Diverticulitis of large intestine with perforation and abscess without bleeding Attestations Medical Necessity Statement*: perforated sigmoid diverticulitis Coding Level of Care Code Acute Retail Personal Banker for [facility] Diagnoses Diverticulitis of colon with perforation K57.20 Diverticulitis bleeding: without bleeding
--- NOTE | 2020-09-30 06:09 | ANES.PREANE2 ---
Pre-Anesthetic Assessment Pre-Anesthetic Assessment: Height/Weight: Height 1.78 m Weight 115.666 kg Temp Pulse Resp BP Pulse Ox 99.1 F 120 H 26 H 121/74 95 09/30/20 04:55 09/30/20 05:30 09/30/20 05:30 09/30/20 05:30 09/30/20 05:30 Preop Diagnosis: perforated sigmoid diverticulitis Proposed Procedure: Operation Date: 09/30/20 07:20 Proposed Procedures p Laparoscopy(Not Applicable) - Dontrell Salas MD Familial anesthetic complications: None Was Beta Ana taken within 24 hours: N/A Last intake: NPO > 8 hrs Social: Comment: former smoker Exam: Pre-Anes Outpt Exam: alert, oriented x 3, clear to auscultation bilaterally and regular rate & rhythm Additional Exam Findings (including area of procedure): tachycardic Airway: Cervical ROM: WNL MP: 4 Dentition: Full Additional comments: large neck circumference Pulmonary: Pulmonary: COPD CV/HEM: CV/HEM: HTN Metabolic: Comments: gout - recent prednisone use Anesthetic Plan: ASA status: 2E Anesthesia: General Risk of > 500 ml blood loss (7ml/kg in children): No Meds/Allergies Current Medications: Current Medications Generic Name Dose Route Start Last Admin Trade Name Freq PRN Reason Stop Dose Admin Sodium Chloride 1,000 mls @ 150 m ls/hr 09/30/20 02:15 09/30/20 02:49 Sodium Chloride 0.9% IV 150 mls/hr .Q6H40M ELODIA Administration PFSH Anesthesia PFSH: Medical History Arthritis of facet joint of lumbar spine Chronic low back pain Gout HTN (hypertension), benign Surgical History H/O knee surgery Hx of inguinal hernia surgery Family History Father Spondylosis Aorta aneurysm Mother Cancer Depression Social History Smoking and tobacco status: former smoker Alcohol intake: current Alcohol intake frequency: holidays/special occasions only Alcohol type: beer History of recent travel: No Data Anesthesia CBC & Chem 7: 09/30/20 00:30 09/30/20 00:30 Other Labs: Laboratory Results - last 48 hr 09/30/20 09/30/20 09/30/20 00:30 00:30 00:30 WBC 6.7 RBC 5.14 Hgb 15.6 Hct 46.4 MCV 90.3 MCH 30.4 MCHC 33.6 RDW 11.6 L Plt Count 307 MPV 10.4 Neut % (Auto) 78.4 Lymph % (Auto) 14.1 [place] % (Auto) 5.1 Eos % (Auto) 0.8 Baso % (Auto) 0.5 Neut # (Auto) 5.23 Lymph # (Auto) 0.9 Lyon # (Auto) 0.3 Eos # (Auto) 0.1 Baso # (Auto) 0.0 Nucleated RBC % (auto) 0 Nucleated RBCs # 0.0 PT INR Sodium 135 L Potassium 3.5 Chloride 94 L Carbon Dioxide 28 Anion Gap 16.5 BUN 18 Creatinine 1.2 GFR Calculation 64.4 L Glucose 218 H Calculated Osmolality 289 Lactate 2.4 H Calcium 9.4 Total Bilirubin 0.4 AST 32 ALT 47 H Alkaline Phosphatase 91 Total Protein 7.5 Albumin 3.9 Globulin 3.6 Lipase 42 Urine Color Urine Appearance Urine pH Ur Specific [place] Urine Protein Urine Glucose (UA) Urine Ketones Urine Blood Urine Nitrate Urine Bilirubin Urine Urobilinogen Ur Leukocyte Esterase 09/30/20 09/30/20 09/30/20 00:30 03:50 03:50 WBC RBC Hgb Hct MCV MCH MCHC RDW Plt Count MPV Neut % (Auto) Lymph % (Auto) [place] % (Auto) Eos % (Auto) Baso % (Auto) Neut # (Auto) Lymph # (Auto) [place] # (Auto) Eos # (Auto) Baso # (Auto) Nucleated RBC % (auto) Nucleated RBCs # PT 13.90 INR 1.03 Sodium Potassium Chloride Carbon Dioxide Anion Gap BUN Creatinine GFR Calculation Glucose Calculated Osmolality Lactate 2.8 H Calcium Total Bilirubin AST ALT Alkaline Phosphatase Total Protein Albumin Globulin Lipase Urine Color Yellow Urine Appearance Clear Urine pH 5.0 Ur Specific [place] 1.010 Urine Protein Neg Urine Glucose (UA) Norm Urine Ketones Negative Urine Blood Neg Urine Nitrate Negative Urine Bilirubin Neg Urine Urobilinogen Norm Ur Leukocyte Esterase Negative Cardiac Studies: No Data to Display
[2020-09-30] MEDS: sodium chloride 0.9% 1,000 ML 30 ML IV (06:15)
--- NOTE | 2020-09-30 07:12 | SUR.OPER ---
0700 - Pt's Carlene updated by Jensen on her cell phone.
--- NOTE | 2020-09-30 09:10 | P.OP_ITS ---
Operative Report Date of procedure: September 30, 2020 Pre-op Diagnosis: perforated sigmoid diverticulitis with intraperitoneal free air Post-op Diagnosis: Perforated sigmoid diverticulitis Hemodynamic instability requiring pressor support Procedure Done: Hand assisted laparoscopic sigmoid colectomy with end colostomy Specimens removed/disposition: Sigmoid colon, 2 staple line on the distal and and 1 staple line on the proximal end Surgeon: Dontrell Salas Anesthesia: General Estimated blood loss (mL): 50 IV fluids (mL): 3,000 Urine output (mL): 350 Condition: stable Disposition: PACU Brief History: This is a 50-year-old male who presented to the ER with 1 week history of abdominal pain and was noted to have intraperitoneal free air secondary to perforated diverticulitis. Patient was initially hemodynamically stable and the plan was for admission to the ICU with IV antibiotics. Over the next 2 hours patient started becoming tachycardic and hypotensive and therefore the decision was made to take the patient emergently to surgery. At the time of surgery patient had to be started on pressor support as he was hypotensive. He had received 3 L of IV fluids prior to surgery Procedure: The patient was taken to the operating room and intubated under general anesthesia. He had received IV Zosyn and a Harmon catheter was already in place and the abdomen was prepped and draped in a sterile manner. Using a 15 blade a 7 cm periumbilical longitudinal incision was made, subcutaneous tissue was divided electrocautery and the peritoneal cavity was entered. There was diaz pus noted. A wound protector was placed and gentle manipulation of the right lower quadrant where the sigmoid colon was adherent resulted in drainage of pus which was irrigated and suctioned out. A GelPort was placed and a 5 mm port was placed in the left lower quadrant and at the level of the umbilicus in the midclavicular line on the right side and a 12 mm port was placed in the right lower quadrant under direct visualization after a 10 mm 30 degree scope had been introduced through the port placed within the GelPort. The sigmoid colon was retracted anteriorly by hand and the site of perforation in the mid sigmoid colon was identified. Using LigaSure the sigmoid mesocolon was divided up to the rectosigmoid junction distally and up to the descending colon proximally. The line of Toldt was opened lateral to the descending colon and the retroperitoneal avascular plane was entered to mobilize the descending colon medially. A [address] [place] stapler x2 was fired to divide the sigmoid colon distally at the rectosigmoid junction and fired once proximally to divide the sigmoid colon completely. The specimen was removed through the GelPort. The patient continued to be hypotensive, tachycardic and on pressor support and therefore decision was made not to perform a primary anastomosis. The site for the colostomy was marked in the left lower quadrant over the rectus muscle. 2 cm diameter circular incision was made using electrocautery, subcutaneous tissue was divided electrocautery and a cruciate incision was made in the anterior rectus sheath, the rectus muscles were retracted bluntly and a 2 fingerbreadth opening was made in the posterior rectus sheath. It was noted that the descend ing colon could not be exteriorized adequately without tension and therefore the pneumoperitoneum was recreated and further mobilization of the descending colon medially was performed. Using LigaSure the mesocolon of the descending colon was partially divided in order to reduce tension and at this point the descending colon could be exteriorized through the colostomy site adequately. The peritoneal cavity was irrigated with 5 L of warm saline until the aspirate was clear. A 10 flat JOSH drain was placed in the pelvis through the 5 mm port site on the right side and sutured using 2-0 nylon. Interrupted 2-0 Vicryl sutures were placed between the serosa of the descending colon and the posterior rectus sheath. The fascia in the midline was closed using running #1 looped PDS and the wound was irrigated with saline and skin at all incisions were closed with agnieszka and sterile dressings. The serosa of the colostomy was sutured to the anterior rectus sheath using interrupted 3-0 Vicryl suture. Using Metzenbaum scissors the staple line was excised and a colostomy was created in the standard fashion by approximating the mucosal edge to the skin edge using 4- 0 Vicryl sutures. The ostomy was patent and the mucosa appeared pink and viable. The ostomy appliance was placed and the patient was extubated and transferred to the ICU on pressor support with Harmon catheter in place.
--- NOTE | 2020-09-30 09:20 | PC.CHAP ---
Pastoral Care Encounter/Spiritual Assessment Type of Contact [] Declined installer molding and trim visit [] Patient/Family/Request visit [] Outpatient visit [] Follow-up visit [] Physician referral [] Code/Alert [] Routine visit [] Staff referral [] Actively dying [] Patient sleeping [] Family support [] [x] Out of room [] Palliative care [] [] Receiving care in room [] Pre-surgical visit [] Trauma [] Long length of stay [x] ICU visit [] Other: Relational/Emotional Strength [] Patient feels connected with others/family/visitors/staff [] Distress [] Loneliness/isolation [] Abandonment Spirituality of Patient [] Person of Aviva [] Attends Yazidism of their Aviva [] Believes in Prayer [] Reads Bible or Jehovah'S Witness materials [] There are Spiritual issues to be addressed Casing Blower Interventions [x] Prayer [] Active listening [] Non-anxious presence [] Spiritual/emotional support [] Crisis/trauma care [] Spiritual counseling [] Bereavement support [] Provided bereavement packet [] Provided Bible/devotional materials [] Provided toy/stuffed animal, coloring book to patient or family member [] Provided Communion [] Anointing/[place] [] Salvation [x] Completed spiritual assessment [] Other: Impact on Illness or Injury [] Angry [] Fearful [] Anxious [] Often cries [] Exhaustion [] Unable to work [] Unable to attend congregation [] Unable to walk/stand [] Unable to read [] Unable to drive [] Unable to eat/drink [] Unable to sleep [] Unable to be with family [] Patient intubated [] Other: Summary Time spent with patient
[2020-09-30] MEDS: D5-NS 0.45% + KCL 20 mEq 20 MEQ/1,000 ML BAG 100 MEQ IV (10:16)
[2020-09-30] MEDS: famotidine 20 mg/2 mL INJ IVP ×2 (10:17→20:27)
[2020-09-30 11:10] LABS: Hematocrit 41.7 % (42.0-52.0); Hemoglobin 13.4 g/dL (11.7-16.6); Mean Corpuscular HGB Conc 32.1 g/dL (30.0-36.0); Mean Corpuscular Hemoglobin 30.2 pg (28.0-34.0); Mean Corpuscular Volume 93.9 fL (80-94); Mean Platelet Volume 10.3 fL (7.4-10.4); Platelet Count 214 10^3/cmm (130-400); Red Blood Count 4.44 10^6/uL (4.1-5.3); Red Cell Distribution Width 12.1 % (12.1-15.1); White Blood Count 6.8 10^3/uL (4.0-10.0)
[2020-09-30 11:15] LABS: Glucose Point of Care 182 mg/dL (70-110)
[2020-09-30 11:33] LABS: Anion Gap 13.5 (5-19); Blood Urea Nitrogen 17 mg/dL (6-20); Calcium 7.3 mg/dL (8.5-10.5); Carbon Dioxide 21 mmol/L (22-29); Chloride 103 mmol/L (98-107); Glomerular Filtration Rate 58.7 mL/min (90-130); Glucose 203 mg/dL (65-115); Osmolality Calculated 283 mOsm/kg (285-295); Potassium 4.5 mmol/L (3.5-5.1); Sodium 133 mmol/L (136-145)
[2020-09-30 11:38] LABS: Creatinine Clr Calc Pharmacy 87.5646
[2020-09-30 12:09] LABS: Slide Review Slide Review Perform
[2020-09-30 12:13] LABS: Absolute Segmented Neutrophil 1.4 10/cmm (1.6-7.1); Band Neutrophils Absolute 3.7 10^3/cmm (0.0-1.2); Eosinophils 0 %; Lymphocytes 5 %; Monocytes Absolute 0.3 10^3/cmm (0.1-0.6); Platelet Estimate Normal (Normal); Segmented Neutrophils 20 %; Total Cells Counted 100 (0-100)
[2020-09-30] MEDS: HYDROcodone-acetaminophen 5-325 mg Tablet 1 TAB PO ×2 (14:13→22:19)
[2020-09-30] MEDS: sodium chloride 0.9% 1,000 ML 100 ML IV (14:59)
[2020-09-30] MEDS: morphine 4 mg/mL SDV 1 mL IVP ×2 (16:04→20:27)
--- NOTE | 2020-09-30 16:49 | P.CONIM_ITS ---
Providers/Reason For Consult Consulting Physican/Specialty*: Rell Pitts MD, hospitalist Reason for Consult*: Medical management Attending Physician: Dontrell Salas MD Primary Care Provider: Linwood Ocasio DO History of Present Illness History of Present Illness Bogdan Vernon is a 50 year old male who presented to the hospital earlier this morning with abdominal pain. He was found to have a perforated viscus, and was taken to the OR for exploration. In the ER he was found to have perforated sigmoid diverticulitis with free intraperitoneal air. He received hand-assisted laparoscopic sigmoid colectomy with end colostomy. He is in the ICU, and doing well. I have been asked to consult for medical management considering his underlying medical problems. Patient relates he had about 1 week of abdominal discomfort, with concern of constipation. He had some vomiting yesterday. He has had no fever. He denies any family history of colon cancer. Review of Systems General: Reports: 10 or more systems reviewed and unremarkable except in HPI and below Eyes: Denies: change in vision ENMT: Denies: throat pain Card: Denies: chest pain Resp: Denies: dyspnea GI: Reports: abdominal pain, nausea and vomiting : Denies: flank pain Musc: Reports: back pain; Denies: neck pain Skin/Breast: Denies: rash Neuro: Denies: headache(s) Psych: Reports: anxiety and depression (Reports he has been depressed for some time and would like treatment) Endo: Denies: polyuria Rivas/Lymph: Denies: easy bruising All/Imm: Denies: urticaria Meds/Allergies Home Medications and Allergies Home Medications Medication Instructions Recorded Confirmed Last Taken Type ibuprofen 200 mg capsule 200 mg PO Q6H PRN 04/29/20 09/30/20 Unknown History timolol maleate 0.25 % eye drops 1 drop OPHTHALMIC (EYE) DAILY@0600 04/29/20 09/30/20 09/28/20 History indomethacin 50 mg capsule 50 mg PO TID 09/03/20 09/30/20 Unknown History latanoprost 0.005 % eye drops 1 drp OPHTHALMIC (EYE) DAILY@0600 09/03/20 09/30/20 09/28/20 History lisinopril 20 mg tablet 20 mg PO DAILY@0600 09/03/20 09/30/20 09/28/20 History gabapentin 600 mg tablet 600 mg PO TID #90 tab 09/11/20 09/30/20 Unknown Rx hydrocodone 5 mg-acetaminophen 325 1 tab PO DAILY PRN 7 Days #7 tab 09/11/20 09/30/20 Unknown Rx mg tablet methocarbamol 750 mg tablet 750 mg PO BID #60 tab 09/11/20 09/30/20 Unknown Rx cholecalciferol (vitamin D3) 1,250 50,000 unit PO .qweek #14 cap 09/23/20 09/30/20 09/24/20 Rx mcg (50,000 unit) capsule tizanidine 4 mg capsule 4 mg PO BID@0600,1800 PRN 09/23/20 09/30/20 Unknown History allopurinol 100 mg PO DAILY@0600 09/30/20 09/30/20 09/28/20 History colchicine 0.6 mg PO DAILY PRN 09/30/20 09/30/20 Unknown History Allergies Allergy/AdvReac Type Severity Reaction Status Date / Time latex Allergy rips skin Verified 09/30/20 00:24 Current Medications Current Medications Generic Name Dose Route Start Last Admin Trade Name Freq PRN Reason Stop Dose Admin Hydrocodone Bitart/Acetaminophen 1 tab 09/30/20 09:21 09/30/20 14:13 Hydrocodone-Acetaminophen 5-325 Mg Tablet PO 1 tab Q6H PRN Administration MODERATE PAIN Famotidine 20 mg 09/30/20 09:21 09/30/20 10:17 Famotidine 20 Mg/2 Ml Inj IVP 20 mg Q12H ELODIA Administration Piperacillin Sod/Tazobactam 50 mls @ 12.5 mls/hr 09/30/20 09:21 09/30/20 14:23 Sod 3.375 gm/ Sodium Chloride IV Infused Q8H ELODIA Infusion Protocol Sodium Chloride 1,000 mls @ 100 mls/hr 09/30/20 15:00 09/30/20 14:59 Sodium Chloride 0.9% IV 100 mls/hr .Q10H ELODIA Administration Lactulose 10 gm 09/30/20 09:21 09/30/20 11:17 Lactulose Oral Liq 20 Gm/30 Ml Udc PO Not Given Q12H ELODIA Morphine Sulfate 4 mg 09/30/20 09:21 09/30/20 16:04 Morphine 4 Mg/Ml Sdv 1 Ml IVP 4 mg Q4H PRN Administration SEVERE PAIN Ondansetron HCl 4 mg 09/30/20 09:21 09/30/20 14:14 Ondansetron 2 Mg/Ml Sdv 2 Ml IVP 4 mg Q6H PRN Administration NAUSEA AND VOMITING PFSH Acute PFSH: Medical History Arthritis of facet joint of lumbar spine Chronic low back pain Gout HTN (hypertension), benign Surgical History H/O knee surgery Hx of inguinal hernia surgery Family History Father Spondylosis Aorta aneurysm Mother Cancer Depression Social History Smoking and tobacco status: former smoker Alcohol intake: current Alcohol intake frequency: holidays/special occasions only Alcohol type: beer History of recent travel: No Vitals/I&O/Wt Last Vital Signs Temp 99 F 09/30/20 11:20 Pulse 115 H 09/30/20 15:20 Resp 20 H 09/30/20 16:04 BP 134/88 09/30/20 15:20 Pulse Ox 92 09/30/20 16:04 09/30/20 09/30/20 09/30/20 06:59 14:59 22:59 Intake Total 50 / 50 5050 / 5050 Output Total 1050 / 1050 Balance 50 / 50 4000 / 4000 Weight last 48 hrs Weight 115.666 kg Physical Exam Narrative: EXAM NARRATIVE: General exam is a white male, no obvious distress HEENT: Pupils equally round. Oropharynx clear. Neck is supple no lymphadenopathy or thyromegaly Cardiovascular regular rate and rhythm without murmur. No S3 or S4 Lungs clear no wheezing or crackles Abdomen is soft. Dressings in place. Ostomy pink. was deferred, Harmon noted Extremities no cyanosis clubbing or edema. Cap refill brisk Skin no rash Neuro no focal deficits Urinary Catheter Management^: Harmon: Cath Placed During This Visit: yes, but has since been removed by the nurse Date Urinary Catheter Removed: 09/30/20 Time Urinary Catheter Discontinued: 09:00 Latex Free: Cath Placed During This Visit: yes Urinary Catheter Date of Insertion: 09/30/20 Urinary Catheter Time of Insertion: 09:05 Data Other Data: Other data: Glucose 182 Lactic 2.8 LFTs normal with exception of ALT of [address] demonstrated free intraperitoneal air, diverticulitis sigmoid Chest x-ray reviewed demonstrates poor inspiration, free intraperitoneal air, no obvious infiltrate but poor quality x-ray A&P Assessment and plan (1) Diverticulitis of colon with perforation: Status post exploration, and colostomy for perforated sigmoid diverticulitis Continue Zosyn Maintenance fluids. Use normal saline as patient has hyperglycemia. Status: Acute Qualifiers: Diverticulitis bleeding: without bleeding Qualified Code(s): K57.20 - Diverticulitis of large intestine with perforation and abscess without bleeding (2) Gout: Restart meds when taking p.o. Status: Acute (3) Degenerative lumbar disc: Status: Acute (4) Elevated glucose: Check hemoglobin A1c. Monitor blood sugar on BMP. If significantly high will institute sliding scale insulin when he starts to eat. Status: Acute (5) Hypertension: Hydralazine IVAs needed until he is able to take p.o. Status: Acute Additional A&P Information Depression. He has significant depression that has been going on for years and he would like this treated. Consider starting him on SSRI, when he is able to take p.o. I will direct this. Full code Lovenox for DVT prophylaxis Thank you for this consultation Consult Attestations Medical Necessity Statement: Needs continued hospital stay for IV antibiotics secondary to perforated sigmoid diverticulitis Time Spent in Patient Care: Greater than 35 minutes Coding Level of Care Code Acute Radiological Health Specialist for [facility] [place] n[place] Diagnoses Diverticulitis of colon with perforation K57.20 Diverticulitis bleeding: without bleeding Gout M10.9 Degenerative lumbar disc M51.36 Elevated glucose R73.09 Hypertension I10
[2020-09-30 18:39] LABS: Estmated Average Glucose 108; Hemoglobin A1C 5.4 % (4.0-6.0)
--- NOTE | 2020-09-30 18:59 | ANE.PACU2 ---
Inpatient post-anesthesia follow up: Airway intact: Yes Vital signs: Temperature 99 F Pulse Rate [Monito r] 83 Pulse Rate 112 Respiratory Rate 30 Blood Pressure [Le ft Arm] 131/91 Blood Pressure 122/80 Pulse Oximetry 93 Oxygen Delivery Me thod Nasal Cannula Oxygen Flow Rate 4 Fraction of Inspir ed Oxygen Hydration adequate: Yes Nausea and vomiting: No Pain level: 2 Mental status: Baseline
[2020-09-30] MEDS: lactulose oral liq 20 gm/30 mL UDC 10 GM PO (20:27)
[2020-10-01] VITALS (31 sets, daily range): BP systolic 110–154; BP diastolic 73–98; PULSE 71–119; RESP 1–39; TEMP 36.6–37.1; O2SAT 90–94
[2020-10-01] MEDS: piperacillin-tazobactam 3.375 GM in sodium chloride 0.9% (plus) 50 ML IV ×3 (01:12→16:26)
[2020-10-01] MEDS: sodium chloride 0.9% 1,000 ML 100 ML IV (01:12)
[2020-10-01] MEDS: morphine 4 mg/mL SDV 1 mL IVP ×2 (01:20→05:38)
[2020-10-01] MEDS: HYDROcodone-acetaminophen 5-325 mg Tablet 1 TAB PO ×2 (04:20→13:22)
[2020-10-01 04:28] LABS: Basophils # 0.1 10^3/uL (0.0-0.1); Basophils % 0.5 %; Hemoglobin 12.7 g/dL (11.7-16.6); Lymphocytes # 0.8 10^3/uL (0.8-4.8); Lymphocytes % 6.9 %; Mean Corpuscular HGB Conc 32.6 g/dL (30.0-36.0); Mean Corpuscular Hemoglobin 30.5 pg (28.0-34.0); Mean Corpuscular Volume 93.5 fL (80-94); Mean Platelet Volume 10.3 fL (7.4-10.4); Monocytes # 0.5 10^3/uL (0.2-0.9); Neutrophils # 10.37 10^3/uL (1.8-7.7); Neutrophils % 87.8 %; Nucleated Red Blood Cells % 0 %; Platelet Count 216 10^3/cmm (130-400); Red Blood Count 4.17 10^6/uL (4.1-5.3); Red Cell Distribution Width 12.4 % (12.1-15.1); White Blood Count 11.8 10^3/uL (4.0-10.0)
[2020-10-01 04:58] LABS: Blood Urea Nitrogen 12 mg/dL (6-20); Carbon Dioxide 26 mmol/L (22-29); Chloride 103 mmol/L (98-107); Glomerular Filtration Rate 71.1 mL/min (90-130); Glucose 125 mg/dL (65-115); Osmolality Calculated 285 mOsm/kg (285-295); Sodium 137 mmol/L (136-145)
[2020-10-01] MEDS: enoxaparin 40 mg/0.4 mL Syringe SUBCUT (05:38)
[2020-10-01 06:17] LABS: Slide Review Slide Review Perform
[2020-10-01] MEDS: lactulose oral liq 20 gm/30 mL UDC 10 GM PO ×2 (08:42→20:21)
[2020-10-01] MEDS: famotidine 20 mg/2 mL INJ IVP ×2 (08:43→20:19)
--- NOTE | 2020-10-01 09:03 | XR_ITS ---
WS: [id number] Portable AP upright chest, 10/01/2020 Clinical Data: dyspnea Comparison: Portable chest, 09/30/2020 Findings: There is a small right pleural effusion which is available since yesterday. Bilateral lower lobe opacities may represent atelectasis and/or pneumonia. The patient has a poor inspiratory effort . The heart is enlarged. No pneumothorax is seen and the pulmonary vascularity is not increased. The free air beneath the left diaphragm has cleared. Monitor leads are on the chest wall. XR/XR chest 1V portable [id number] Impression: 1. Poor inspiratory effort with development of right pleural effusion. 2. Development of right lower lobe opacity and minimal left lower lobe opacity which may represent atelectasis and/or pneumonia.
[2020-10-01] MEDS: morphine 4 mg/mL SDV 1 mL 3 MG IVP ×3 (09:55→20:19)
--- NOTE | 2020-10-01 10:33 | PM.PN ---
Subjective Subjective: Interval history: Bogdan reports he is somewhat short of breath this morning. His abdomen hurts. He reports no nausea. Medications: Reviewed: Yes Vitals/I&O/Wt Last Vital Signs Temp 98.2 F 10/01/20 04:00 Pulse 106 H 10/01/20 10:00 Resp 18 10/01/20 10:00 BP 139/93 10/01/20 10:00 Pulse Ox 92 10/01/20 10:00 09/30/20 10/01/20 10/01/20 22:59 06:59 14:59 Intake Total 70 / 5120 1050 / 6170 Output Total 2125 / 3175 660 / 3835 Balance -2054 / 1944 390 / 2335 Weight last 48 hrs Weight 115.666 kg Physical Exam Narrative: EXAM NARRATIVE: General exam is a white male, slight tachypnea Neck is supple no lymphadenopathy or thyromegaly Cardiovascular regular rate and rhythm without murmur. No S3 or S4 Lungs clear no wheezing or crackles Abdomen a few faint bowel sounds. Ostomy pink. Some blood in the bag. Extremities no cyanosis clubbing or edema. Cap refill brisk Urinary Catheter Management^: Harmon: Cath Placed During This Visit: yes, but has since been removed by the nurse Date Urinary Catheter Removed: 09/30/20 Time Urinary Catheter Discontinued: 09:00 Latex Free: Cath Placed During This Visit: yes Reason for Continuing Indwelling Catheter: Accurate Measurement of Urinary Output in Critically Ill Patients Urinary Catheter Date of Insertion: 09/30/20 Urinary Catheter Time of Insertion: 09:05 Data : 10/01/20 03:45 10/01/20 03:45 A&P Assessment and plan (1) Diverticulitis of colon with perforation: Postoperative day #1 status post post exploration, and colostomy for perforated sigmoid diverticulitis Continue Zosyn Currently on maintenance fluids. Discontinue secondary to dyspnea until further evaluation. Status: Acute Qualifiers: Diverticulitis bleeding: without bleeding Qualified Code(s): K57.20 - Diverticulitis of large intestine with perforation and abscess without bleeding (2) Gout: Restart meds when taking p.o. Status: Acute (3) Degenerative lumbar disc: Status: Acute (4) Elevated glucose: Patiently elevated Status: Acute (5) Hypertension: Hydralazine IV as needed until he is able to take p.o. Status: Acute Additional A&P Information Dyspnea. Fluids stopped when I evaluated him this morning. I have reviewed his chest x-ray and he has poor inspiration, likely right pleural effusion. Lasix 40 mg IV ordered. Depression. He has significant depression that has been going on for years and he would like this treated. Consider starting him on SSRI, when he is able to take p.o. I will direct this. Full code Lovenox will suffice for DVT prophylaxis Thank you for this consultation Attestations Medical Necessity Statement*: Needs continued hospitalization secondary to perforated viscus, postoperative day #1 now with right pleural effusion and some evidence of fluid overload. 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
[2020-10-01] MEDS: FUROsemide 10 mg/mL SDV 4mL 40 MG IVP (11:03)
--- NOTE | 2020-10-01 15:30 | PM.PN ---
Subjective Subjective: Interval history: Mr. Vernon did well overnight, had some complaints of abdominal pain, no significant output from the ostomy, no nausea or vomiting. Patient had been hyperventilating and chest x-ray showed fluid overload/atelectasis and 40 mg of Lasix has been given Vitals/I&O/Wt Last Vital Signs Temp 98.7 F 10/01/20 11:14 Pulse 117 H 10/01/20 15:00 Resp 22 H 10/01/20 15:00 BP 130/86 10/01/20 15:00 Pulse Ox 92 10/01/20 15:00 10/01/20 10/01/20 10/01/20 06:59 14:59 22:59 Intake Total 1050 / 6170 0 / 0 Output Total 660 / 3835 2200 / 2200 Balance 390 / 2335 -2200 / -2200 Weight last 48 hrs Weight 255 lb Physical Exam Narrative: EXAM NARRATIVE: Abdomen: Soft, distended, tender, dressings dry and intact, ostomy is pink, bloody, with venous congestion Urinary Catheter Management^: Harmon: Cath Placed During This Visit: yes, but has since been removed by the nurse Date Urinary Catheter Removed: 09/30/20 Time Urinary Catheter Discontinued: 09:00 Latex Free: Cath Placed During This Visit: yes Reason for Continuing Indwelling Catheter: Accurate Measurement of Urinary Output in Critically Ill Patients Urinary Catheter Date of Insertion: 09/30/20 Urinary Catheter Time of Insertion: 09:05 Data : 10/01/20 03:45 10/01/20 03:45 A&P Assessment and plan (1) S/P laparoscopic-assisted sigmoidectomy: 50-year-old male status post sigmoidectomy with colostomy for perforated sigmoid diverticulitis with postop ileus Neuro: Morphine [place] for pain control Respiratory: Continue I-S, 40 mg Lasix IV given for fluid overload and shortness of breath Cardiovascular: Continue lisinopril GI: Start clear liquid diet, continue lactulose for 15 cc p.o. 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
--- NOTE | 2020-10-01 16:45 | PC.NURSE ---
Catheter taken out at 1630
[2020-10-01] MEDS: ondansetron 2 mg/ML SDV 2 mL 4 MG IVP (20:30)
[2020-10-02] VITALS (20 sets, daily range): BP systolic 118–152; BP diastolic 84–98; PULSE 93–110; RESP 11–30; TEMP 36.5–37; O2SAT 92–96
[2020-10-02] MEDS: morphine 4 mg/mL SDV 1 mL 3 MG IVP ×4 (00:28→22:34)
[2020-10-02] MEDS: piperacillin-tazobactam 3.375 GM in sodium chloride 0.9% (plus) 50 ML IV ×3 (00:29→18:28)
[2020-10-02] MEDS: ondansetron 2 mg/ML SDV 2 mL 4 MG IVP (03:03)
[2020-10-02 04:41] LABS: Basophils % 0.2 %; Hematocrit 40.7 % (42.0-52.0); Hemoglobin 13.3 g/dL (11.7-16.6); Lymphocytes % 6.5 %; Mean Corpuscular HGB Conc 32.7 g/dL (30.0-36.0); Mean Corpuscular Hemoglobin 30.7 pg (28.0-34.0); Mean Platelet Volume 10.5 fL (7.4-10.4); Monocytes # 0.4 10^3/uL (0.2-0.9); Monocytes % 2.8 %; Neutrophils # 13.15 10^3/uL (1.8-7.7); Neutrophils % 89.7 %; Nucleated Red Blood Cells % 0 %; Platelet Count 262 10^3/cmm (130-400); Red Blood Count 4.33 10^6/uL (4.1-5.3); Red Cell Distribution Width 12.4 % (12.1-15.1); White Blood Count 14.7 10^3/uL (4.0-10.0)
[2020-10-02 05:06] LABS: Blood Urea Nitrogen 16 mg/dL (6-20); Calcium 8.8 mg/dL (8.5-10.5); Carbon Dioxide 30 mmol/L (22-29); Chloride 98 mmol/L (98-107); Glomerular Filtration Rate 79.4 mL/min (90-130); Glucose 135 mg/dL (65-115); Osmolality Calculated 285 mOsm/kg (285-295); Sodium 136 mmol/L (136-145)
[2020-10-02] MEDS: enoxaparin 40 mg/0.4 mL Syringe SUBCUT (05:46)
[2020-10-02] MEDS: metoclopramide 5 mg/mL SDV 2 mL 10 MG IVP (07:26)
--- NOTE | 2020-10-02 08:13 | PC.NURSE ---
CALL TO DR. BLANKENSHIP upon assessment of stoma, appears to be black and dusky. drainage from ostomy is dark red. patient complaining of 5/10 pain in abdomen. nausea is noted by nurse. informed of findings. call to and informed of stoma site/drainage. coming to bedside to examine. no new orders at this time
[2020-10-02] MEDS: famotidine 20 mg/2 mL INJ IVP ×2 (08:28→21:07)
[2020-10-02] MEDS: vancomycin 1,500 MG/300 ML PIGGYBACK 200 MG IV ×2 (09:01→22:41)
--- NOTE | 2020-10-02 09:11 | PM.PN ---
Documented by User: RILEY Gatica STDNT 10/02/20 09:25 Subjective Subjective: Interval history: Mr. Vernon is a 10 yo male who presented to ED on 09-30-20 for abdominal pain, which was found to be due to perforated diverticula in the sigmoid colon. He is currently s/p sigmoidectomy on 09-30-20. Today he says his stomach feels crampy and that he feels naseous. He denies SOB, chest pain, vomiting, and diarrhea. Medications: Reviewed: Yes Vitals/I&O/Wt Last Vital Signs Temp 97.9 F 10/02/20 08:00 Pulse 102 H 10/02/20 08:00 Resp 27 H 10/02/20 08:28 BP 130/90 10/02/20 08:00 Pulse Ox 95 10/02/20 08:28 10/01/20 10/02/20 10/02/20 22:59 06:59 14:59 Intake Total 110 / 160 50 / 210 15 / 15 Output Total 750 / 2950 280 / 3230 200 / 200 Balance -640 / -2790 -230 / -3020 -185 / -185 Physical Exam Narrative: EXAM NARRATIVE: Abdomen: Soft, distended, tender, dressings dry and intact, ostomy is pink, bloody, with venous congestion Const: COMMON NORMALS: no acute distress, patient oriented x3, healthy appearing and alert HENMT: COMMON NORMALS: normocephalic and atraumatic HEAD & SCALP: normocephalic and atraumatic Eye: COMMON NORMALS: Equal, round and reactive pupils present and EOMs intact bilaterally PUPIL: Yes Equal, round and reactive pupils present Neck/C-Spine: COMMON NORMALS: full ROM and supple Chest: COMMONS NORMALS: normal inspection of the chest and normal palpation of entire chest wall Resp: COMMON NORMALS: normal respiratory effort, No retractions, No use of accessory muscles and clear to auscultation bilaterally AUSCULTATION: clear to auscultation bilaterally Cardio: COMMON NORMALS: regular rhythm, S1 normal heart sound present, S2 normal heart sound present, No gallops present (Cardio), No clicks present (Cardio), No murmurs present (Cardio), No rub (Cardio) and Peripheral pulses 2+ throughout RATE: tachycardic RHYTHM: regular rhythm HEART SOUNDS: S1 normal heart sound present and S2 normal heart sound present PERIPHERAL PULSES: Peripheral pulses 2+ throughout GI: COMMON NORMALS: Soft to palpation and no masses INSPECTION: Yes abdominal wall ecchymosis and Yes incision AUSCULTATION: Yes Absent bowel sounds PALPATION: Yes Soft to palpation and Yes Tenderness to palpation present (GI) (suprapubic) Extremity: COMMON NORMALS: normal to inspection and full ROM Neuro: COMMON NORMALS: patient oriented x3, moves all extremities and no focal motor deficits SENSORIUM/ORIENTATION: Yes alert Psych: COMMON NORMALS: mental status grossly normal, Normal thought process present and cooperative THOUGHT PROCESS: Normal thought process present Skin: COMMON NORMALS: no rashes or lesions noted and no wounds GENERAL SKIN EXAM: no rashes or lesions noted Urinary Catheter Management^: Harmon: Cath Placed During This Visit: yes, but has since been removed by the nurse Date Urinary Catheter Removed: 09/30/20 Time Urinary Catheter Discontinued: 09:00 Latex Free: Cath Placed During This Visit: yes, but has since been removed by the nurse Reason for Continuing Indwelling Catheter: Accurate Measurement of Urinary Output in Critically Ill Patients Urinary Catheter Date of Insertion: 09/30/20 Urinary Catheter Time of Insertion: 09:05 Date Urinary Catheter Removed: 10/01/20 Time Urinary Catheter Discontinued: 13:00 Data : 10/02/20 04:03 10/02/20 04:03 A&P Assessment and plan (1) S/P laparoscopic-assisted sigmoidectomy: 50-year-old male status post sigmoidectomy with colostomy for perforated sigmoid diverticulitis with postop ileus Neuro: Morphine [place] for pain control Respiratory: Continue I-S, discontinue 40 mg of Lasix; Dr. Pitts will give vancomycin to cover for aspiration pneumona due to concern for possible pneumonia on CXR. Cardiovascular: Continue lisinopril GI: Start clear liquid diet, continue lactulose for 15 cc p.o. twice daily for the bowel regimen, IV Pepcid for GI prophylaxis Renal: DC Harmon Endo: None ID: Continue Zosyn DVT prophylaxis: SCD/Lovenox JOSH drain to bulb suction Status: Acute Additional A&P Information Dyspnea. After one dose of 40mg Lasix, pt has diuresed 3L of fluid and says he is able to breathe better. Will discontinue today. Depression. He has significant depression that has been going on for years and he would like this treated. Dr. Pitts will start him on SSRI today. Full code Lovenox will suffice for DVT prophylaxis Attestations Medical Necessity Statement*: as per medicine Coding Level of Care Code Acute Laboratory Analyst for g Fwd Exam Comprehensive Diagnoses S/P laparoscopic-assisted sigmoidectomy Z90.49 Documented by User: Rell Pitts MD 10/02/20 10:39 Physical Exam Urinary Catheter Management^: Harmon: Cath Placed During This Visit: no Latex Free: Cath Placed During This Visit: no Data : 10/02/20 04:03 10/02/20 04:03 Attestations Medical Necessity Statement*: Patient needs continued hospitalization for perforated bowel for IV antibiotics. Note that I interviewed the patient separately, examined the patient, and that we discussed the above plan regarding the patient. Today vancomycin was also added to his regimen for concern of pneumonia with white blood cell count increasing. And MRSA PCR will be performed as well as a sputum culture. Zoloft will be started in regards to his depression. Ativan while in the hospital will be given for anxiety as needed. Reglan added for nausea. Patient has hydralazine as needed for elevated blood pressure Coding Level of Care Code Acute Laboratory Analyst for [facility] Fwd Exam Comprehensive Diagnoses S/P laparoscopic-assisted sigmoidectomy Z90.49
--- NOTE | 2020-10-02 10:26 | PM.PN ---
Subjective Subjective: Interval history: Patient has been tachycardic, diaphoretic, denies any nausea vomiting Vitals/I&O/Wt Last Vital Signs Temp 97.9 F 10/02/20 08:00 Pulse 97 10/02/20 10:00 Resp 22 H 10/02/20 10:00 BP 135/86 10/02/20 10:00 Pulse Ox 96 10/02/20 10:00 10/01/20 10/02/20 10/02/20 22:59 06:59 14:59 Intake Total 110 / 210 50 / 210 15 / 15 Output Total 750 / 3230 280 / 3230 200 / 200 Balance -640 / -3020 -230 / -3020 -185 / -185 Physical Exam Narrative: EXAM NARRATIVE: Abdomen: Soft, distended, tender, incision clean dry and intact, JOSH drain output is serosanguineous, ostomy has venous congestion, bloody ostomy output Urinary Catheter Management^: Harmon: Cath Placed During This Visit: yes, but has since been removed by the nurse Date Urinary Catheter Removed: 09/30/20 Time Urinary Catheter Discontinued: 09:00 Latex Free: Cath Placed During This Visit: yes, but has since been removed by the nurse Reason for Continuing Indwelling Catheter: Accurate Measurement of Urinary Output in Critically Ill Patients Urinary Catheter Date of Insertion: 09/30/20 Urinary Catheter Time of Insertion: 09:05 Date Urinary Catheter Removed: 10/01/20 Time Urinary Catheter Discontinued: 13:00 Data : 10/02/20 04:03 10/02/20 04:03 A&P Assessment and plan (1) S/P laparoscopic-assisted sigmoidectomy: 50-year-old male status post sigmoidectomy with colostomy for perforated sigmoid diverticulitis with postop ileus Neuro: Morphine [place] for pain control Respiratory: Continue I-S, wean O2 to room air Cardiovascular: Continue lisinopril GI: clear liquid diet, advised to limit oral intake, continue lactulose for 15 cc p.o. 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
[2020-10-02] MEDS: metoclopramide 5 mg/mL SDV 2 mL IVP (11:18)
[2020-10-02] MEDS: sertraline 50 mg Tablet 25 MG PO (11:19)
[2020-10-02] MEDS: HYDROcodone-acetaminophen 5-325 mg Tablet 1 TAB PO (12:20)
--- NOTE | 2020-10-02 14:00 | PC.NURSE ---
right lower abd nurse noted blisters to lower abd. patient stated that he has sensitivity to tape. nurse changed dressing and placed foam tape over skin. findings was reported during report called to [facility] nurse.
[2020-10-02] MEDS: gabapentin 300 mg Capsule 600 MG PO ×2 (18:28→20:46)
[2020-10-02] MEDS: lactulose oral liq 20 gm/30 mL UDC 10 GM PO (20:47)
[2020-10-02] MEDS: latanoprost 0.005% Op Soln 2.5 mL Btl 1 DROP EYE-BOTH (22:45)
[2020-10-03] VITALS (13 sets, daily range): BP systolic 123–148; BP diastolic 79–94; PULSE 76–120; RESP 16–18; TEMP 36.4–36.9; O2SAT 91–95
[2020-10-03] MEDS: piperacillin-tazobactam 3.375 GM in sodium chloride 0.9% (plus) 50 ML IV ×3 (00:47→18:58)
[2020-10-03] MEDS: morphine 4 mg/mL SDV 1 mL 3 MG IVP ×3 (04:30→23:01)
[2020-10-03 05:09] LABS: Basophils % 0.2 %; Eosinophils # 0.1 10^3/uL (0.0-0.8); Eosinophils % 0.5 %; Hematocrit 40.2 % (42.0-52.0); Hemoglobin 12.9 g/dL (11.7-16.6); Lymphocytes # 1.4 10^3/uL (0.8-4.8); Mean Corpuscular HGB Conc 32.1 g/dL (30.0-36.0); Mean Corpuscular Volume 93.5 fL (80-94); Mean Platelet Volume 10.2 fL (7.4-10.4); Monocytes # 0.5 10^3/uL (0.2-0.9); Monocytes % 3.8 %; Neutrophils # 10.26 10^3/uL (1.8-7.7); Neutrophils % 83.6 %; Nucleated Red Blood Cells % 0 %; Platelet Count 302 10^3/cmm (130-400); Red Cell Distribution Width 12.2 % (12.1-15.1); White Blood Count 12.3 10^3/uL (4.0-10.0)
[2020-10-03] MEDS: lisinopril 20 mg Tablet PO (05:28)
[2020-10-03] MEDS: enoxaparin 40 mg/0.4 mL Syringe SUBCUT (05:28)
[2020-10-03] MEDS: allopurinol 100 mg Tablet PO (05:28)
[2020-10-03] MEDS: timolol 0.25% Op Soln 5 mL Btl 1 DROP EYE-BOTH (05:32)
--- NOTE | 2020-10-03 06:28 | PC.NURSE ---
Summary Patient rested well all night. Pain meds given every few hours. Pain is tolerable until moving or coughing in bed. He said he rested better last night and feels good.
[2020-10-03 06:57] LABS: Anion Gap 14.7 (5-19); Blood Urea Nitrogen 16 mg/dL (6-20); Calcium 8.7 mg/dL (8.5-10.5); Carbon Dioxide 27 mmol/L (22-29); Chloride 99 mmol/L (98-107); Glomerular Filtration Rate 102.7 mL/min (90-130); Glucose 108 mg/dL (65-115); Osmolality Calculated 286 mOsm/kg (285-295); Potassium 3.7 mmol/L (3.5-5.1); Sodium 137 mmol/L (136-145)
--- NOTE | 2020-10-03 07:43 | PM.PN ---
Subjective Subjective: Interval history: Patient doing well denies any significant abdominal pain nausea or vomiting, passing flatus, no stool in the ostomy, currently on 1 L oxygen Vitals/I&O/Wt Last Vital Signs Temp 97.9 F 10/03/20 07:31 Pulse 94 10/03/20 07:31 Resp 18 10/03/20 07:31 BP 123/79 10/03/20 07:31 Pulse Ox 94 10/03/20 07:31 10/02/20 10/03/20 10/03/20 22:59 06:59 14:59 Intake Total 50 / 435 Output Total 670 / 1150 Balance 50 / -715 -670 / -715 Physical Exam Narrative: EXAM NARRATIVE: Abdomen: Soft, mildly distended, tender, incision clean dry and intact, JOSH drain output is serosanguineous, ostomy has venous congestion and edema, flatus present, no significant stool Urinary Catheter Management^: Harmon: Cath Placed During This Visit: yes, but has since been removed by the nurse Date Urinary Catheter Removed: 09/30/20 Time Urinary Catheter Discontinued: 09:00 Latex Free: Cath Placed During This Visit: yes, but has since been removed by the nurse Reason for Continuing Indwelling Catheter: Accurate Measurement of Urinary Output in Critically Ill Patients Urinary Catheter Date of Insertion: 09/30/20 Urinary Catheter Time of Insertion: 09:05 Date Urinary Catheter Removed: 10/01/20 Time Urinary Catheter Discontinued: 13:00 Data : 10/03/20 04:20 10/03/20 04:20 A&P Assessment and plan (1) S/P laparoscopic-assisted sigmoidectomy: 50-year-old male status post sigmoidectomy with colostomy for perforated sigmoid diverticulitis with postop ileus, flatus present Patient has significant venous congestion of the ostomy, at this point we will continue to observe Neuro: Morphine [place] for pain control Respiratory: Continue I-S, wean O2 to room air Cardiovascular: Continue lisinopril GI: clear liquid diet, continue lactulose for 15 cc p.o. 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
[2020-10-03] MEDS: HYDROcodone-acetaminophen 5-325 mg Tablet 1 TAB PO ×2 (08:58→14:23)
[2020-10-03] MEDS: vancomycin 1,500 MG/300 ML PIGGYBACK 200 MG IV ×2 (08:59→22:53)
[2020-10-03] MEDS: gabapentin 300 mg Capsule 600 MG PO ×3 (08:59→22:52)
[2020-10-03] MEDS: sertraline 50 mg Tablet 25 MG PO (08:59)
[2020-10-03] MEDS: famotidine 20 mg/2 mL INJ IVP (09:00)
[2020-10-03] MEDS: lactulose oral liq 20 gm/30 mL UDC 10 GM PO ×2 (09:00→22:52)
--- NOTE | 2020-10-03 10:50 | PM.PN ---
Subjective Subjective: Interval history: Bogdan reports he is feeling better. Passing gas into his ostomy. Less short of breath. Medications: Reviewed: Yes Vitals/I&O/Wt Last Vital Signs Temp 97.9 F 10/03/20 07:31 Pulse 94 10/03/20 07:31 Resp 18 10/03/20 07:31 BP 123/79 10/03/20 07:31 Pulse Ox 94 10/03/20 07:31 10/02/20 10/03/20 10/03/20 22:59 06:59 14:59 Intake Total 50 / 435 300 / 735 120 / 120 Output Total 670 / 1150 375 / 375 Balance 50 / -45 -370 / -415 -255 / -255 Physical Exam Narrative: EXAM NARRATIVE: General exam is a white male. Without significant tachypnea currently. Neck is supple no lymphadenopathy or thyromegaly Cardiovascular regular rate and rhythm without murmur. No S3 or S4 Lungs clear no wheezing or crackles Abdomen bowel sounds noted. Ostomy dark. Extremities no cyanosis clubbing or edema. Cap refill brisk Urinary Catheter Management^: Harmon: Cath Placed During This Visit: yes, but has since been removed by the nurse Date Urinary Catheter Removed: 09/30/20 Time Urinary Catheter Discontinued: 09:00 Latex Free: Cath Placed During This Visit: yes, but has since been removed by the nurse Reason for Continuing Indwelling Catheter: Accurate Measurement of Urinary Output in Critically Ill Patients Urinary Catheter Date of Insertion: 09/30/20 Urinary Catheter Time of Insertion: 09:05 Date Urinary Catheter Removed: 10/01/20 Time Urinary Catheter Discontinued: 13:00 Data : 10/03/20 04:20 10/03/20 04:20 A&P Assessment and plan (1) Diverticulitis of colon with perforation: Postoperative day #3 status post post exploration, and colostomy for perforated sigmoid diverticulitis Continue Zosyn Currently on maintenance fluids. Discontinue secondary to dyspnea until further evaluation. White blood cell count has decreased significantly. Status: Acute Qualifiers: Diverticulitis bleeding: without bleeding Qualified Code(s): K57.20 - Diverticulitis of large intestine with perforation and abscess without bleeding (2) Gout: Restart meds when taking p.o. Status: Acute (3) Degenerative lumbar disc: Status: Acute (4) Elevated glucose: Patiently elevated Status: Acute (5) Hypertension: Hydralazine as needed Status: Acute Additional A&P Information Dyspnea. Improving. In some part due to fluid overload. However, concern for pneumonia exists so he is currently on Zosyn and vancomycin. MRSA PCR has been ordered. If this is negative vancomycin can be discontinued. Depression. He has significant depression that has been going on for years and he would like this treated. Zoloft initiated Full code Lovenox will suffice for DVT prophylaxis Attestations Medical Necessity Statement*: Needs continued hospitalization for close follow-up secondary to perforated diverticulitis requiring surgery. 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
[2020-10-03 17:26] LABS: Glucose Point of Care 108 mg/dL (70-110)
--- NOTE | 2020-10-03 18:11 | PC.NURSE ---
Patient walked 2 laps around the floor and his O2 stayed at 92%
[2020-10-03] MEDS: latanoprost 0.005% Op Soln 2.5 mL Btl 1 DROP EYE-BOTH (22:52)
[2020-10-04] VITALS (9 sets, daily range): BP systolic 127–149; BP diastolic 77–97; PULSE 87–96; RESP 16–18; TEMP 36.4–36.9; O2SAT 90–94
[2020-10-04] MEDS: HYDROcodone-acetaminophen 5-325 mg Tablet 1 TAB PO ×3 (04:00→20:43)
[2020-10-04 04:06] LABS: Basophils % 0.3 %; Eosinophils # 0.1 10^3/uL (0.0-0.8); Hematocrit 39.4 % (42.0-52.0); Hemoglobin 12.8 g/dL (11.7-16.6); Lymphocytes # 1.6 10^3/uL (0.8-4.8); Lymphocytes % 15.3 %; Mean Corpuscular HGB Conc 32.5 g/dL (30.0-36.0); Mean Corpuscular Hemoglobin 30.2 pg (28.0-34.0); Mean Corpuscular Volume 92.9 fL (80-94); Mean Platelet Volume 9.9 fL (7.4-10.4); Monocytes # 0.6 10^3/uL (0.2-0.9); Monocytes % 5.7 %; Neutrophils # 7.79 10^3/uL (1.8-7.7); Neutrophils % 76.6 %; Nucleated Red Blood Cells % 0 %; Platelet Count 297 10^3/cmm (130-400); Red Blood Count 4.24 10^6/uL (4.1-5.3); Red Cell Distribution Width 12.2 % (12.1-15.1); White Blood Count 10.2 10^3/uL (4.0-10.0)
[2020-10-04 04:35] LABS: Anion Gap 11.6 (5-19); Blood Urea Nitrogen 13 mg/dL (6-20); Calcium 8.5 mg/dL (8.5-10.5); Carbon Dioxide 30 mmol/L (22-29); Chloride 99 mmol/L (98-107); Glomerular Filtration Rate 89.7 mL/min (90-130); Glucose 105 mg/dL (65-115); Osmolality Calculated 284 mOsm/kg (285-295); Potassium 3.6 mmol/L (3.5-5.1); Sodium 137 mmol/L (136-145)
[2020-10-04] MEDS: piperacillin-tazobactam 3.375 GM in sodium chloride 0.9% (plus) 50 ML IV ×3 (04:38→20:43)
[2020-10-04] MEDS: enoxaparin 40 mg/0.4 mL Syringe SUBCUT (06:00)
[2020-10-04] MEDS: lisinopril 20 mg Tablet PO (06:00)
[2020-10-04] MEDS: allopurinol 100 mg Tablet PO (06:00)
[2020-10-04] MEDS: timolol 0.25% Op Soln 5 mL Btl 1 DROP EYE-BOTH (06:04)
[2020-10-04] MEDS: sertraline 50 mg Tablet 25 MG PO (08:02)
[2020-10-04] MEDS: gabapentin 300 mg Capsule 600 MG PO ×3 (08:02→20:43)
[2020-10-04] MEDS: pantoprazole DR 40 mg Tablet PO (08:03)
[2020-10-04] MEDS: morphine 4 mg/mL SDV 1 mL 3 MG IVP (08:04)
--- NOTE | 2020-10-04 08:04 | P.PN_ITS ---
Subjective Subjective: Interval history: Patient doing well denies any significant abdominal pain nausea or vomiting, passing flatus, no stool in the ostomy, off oxygen Vitals/I&O/Wt Last Vital Signs Temp 97.8 F 10/04/20 08:00 Pulse 91 10/04/20 08:00 Resp 18 10/04/20 08:00 BP 145/92 10/04/20 08:00 Pulse Ox 93 10/04/20 08:00 10/03/20 10/04/20 10/04/20 22:59 06:59 14:59 Intake Total 100 / 1180 300 / 1180 Output Total 465 / 1630 540 / 1630 700 / 700 Balance -365 / -450 -240 / -450 -700 / -700 Physical Exam Narrative: EXAM NARRATIVE: Abdomen: Soft, distended, tender, incision clean dry and intact, JOSH drain output is serosanguineous, ostomy has venous congestion, bloody ostomy output, large amount of flatus, ostomy digitally dilated today Urinary Catheter Management^: Harmon: Cath Placed During This Visit: yes, but has since been removed by the nurse Date Urinary Catheter Removed: 09/30/20 Time Urinary Catheter Discontinued: 09:00 Latex Free: Cath Placed During This Visit: yes, but has since been removed by the nurse Reason for Continuing Indwelling Catheter: Accurate Measurement of Urinary Output in Critically Ill Patients Urinary Catheter Date of Insertion: 09/30/20 Urinary Catheter Time of Insertion: 09:05 Date Urinary Catheter Removed: 10/01/20 Time Urinary Catheter Discontinued: 13:00 Data : 10/04/20 03:45 10/04/20 03:45 A&P Assessment and plan (1) S/P laparoscopic-assisted sigmoidectomy: 50-year-old male status post sigmoidectomy with colostomy for perforated sigmoid diverticulitis with postop ileus, flatus present Patient has significant venous congestion of the ostomy, at this point we will continue to observe Neuro: Morphine [place] for pain control Respiratory: Continue I-S Cardiovascular: Continue lisinopril, hydralazine prn GI: start full liquid diet, continue lactulose for 15 cc p.o. 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
[2020-10-04] MEDS: lactulose oral liq 20 gm/30 mL UDC 10 GM PO ×2 (09:01→20:43)
[2020-10-04] MEDS: vancomycin 1,500 MG/300 ML PIGGYBACK 200 MG IV ×2 (09:58→17:25)
--- NOTE | 2020-10-04 11:54 | PM.PN ---
Subjective Subjective: Interval history: This is a 50-year-old male who presented to the hospital on September 30 with abdominal pain. He was found to have a perforated viscus and taken the OR for exploration. He was diagnosed with perforated sigmoid diverticulitis. He had colectomy completed. He is currently on antibiotics. Tolerated procedure well. Clear liquid diet was started. He has no other complaints. Medications: Reviewed: Yes Vitals/I&O/Wt Last Vital Signs Temp 98.4 F 10/04/20 11:29 Pulse 96 10/04/20 11:29 Resp 18 10/04/20 11:29 BP 149/97 10/04/20 11:29 Pulse Ox 92 10/04/20 11:29 10/03/20 10/04/20 10/04/20 22:59 06:59 14:59 Intake Total 100 / 880 300 / 1180 240 / 240 Output Total 465 / 1090 540 / 1630 900 / 900 Balance -365 / -210 -240 / -450 -660 / -660 Physical Exam Const: COMMON NORMALS: no acute distress and patient oriented x3 GENERAL APPEARANCE: cooperative and comfortable NUTRITIONAL APPEARANCE: overweight Neck/C-Spine: COMMON NORMALS: no JVD Resp: COMMON NORMALS: normal respiratory effort and No retractions Cardio: COMMON NORMALS: no JVD and regular rate RATE: regular rate GI: OTHER: Colostomy bag in place dark liquid Neuro: COMMON NORMALS: patient oriented x3 and CN's II-XII intact bilaterally Psych: COMMON NORMALS: mental status grossly normal and Normal thought process present THOUGHT PROCESS: Normal thought process present Skin: COMMON NORMALS: no rashes or lesions noted GENERAL SKIN EXAM: no rashes or lesions noted Urinary Catheter Management^: Harmon: Cath Placed During This Visit: yes, but has since been removed by the nurse Date Urinary Catheter Removed: 09/30/20 Time Urinary Catheter Discontinued: 09:00 Latex Free: Cath Placed During This Visit: yes, but has since been removed by the nurse Reason for Continuing Indwelling Catheter: Accurate Measurement of Urinary Output in Critically Ill Patients Urinary Catheter Date of Insertion: 09/30/20 Urinary Catheter Time of Insertion: 09:05 Date Urinary Catheter Removed: 10/01/20 Time Urinary Catheter Discontinued: 13:00 Data : 10/04/20 03:45 10/04/20 03:45 A&P Assessment and plan (1) Elevated glucose: Status: Acute (2) S/P laparoscopic-assisted sigmoidectomy: Status: Acute (3) Arthralgia: Status: Acute Additional A&P Information This is a 50-year-old male admitted for perforated diverticulitis. Status post colectomy. 1. Status post sigmoidectomy -post op care -vanc and zosyn -FLD 2. Gout -not in flare -on allopurinol 3. Chronic joint pains -PRN analgesics 4. Glaucoma -Continue home eyedrops 5. HTN -stable , continue home medications DVT:lovenox GI: Protonix Code: Full Disposition: Attestations Medical Necessity Statement*: Bogdan Vernon's hospital stay will require greater than 2 midnights for diverticulitis Coding Level of Care Code Acute Bulk Station Agent for Chg Fwd Exam Detailed Diagnoses Elevated glucose R73.09 S/P laparoscopic-assisted sigmoidectomy Z90.49 Arthralgia M25.50
[2020-10-04] MEDS: ketorolac 30 mg/mL INJ 15 MG IVP (15:29)
[2020-10-04] MEDS: latanoprost 0.005% Op Soln 2.5 mL Btl 1 DROP EYE-BOTH (20:43)
[2020-10-05] VITALS (11 sets, daily range): BP systolic 130–161; BP diastolic 66–89; PULSE 78–110; RESP 17–18; TEMP 36.8–37.7; O2SAT 90–96
[2020-10-05] MEDS: vancomycin 1,500 MG/300 ML PIGGYBACK 150 MG IV ×3 (01:14→18:32)
[2020-10-05] MEDS: HYDROcodone-acetaminophen 5-325 mg Tablet 1 TAB PO ×3 (04:01→17:10)
[2020-10-05] MEDS: piperacillin-tazobactam 3.375 GM in sodium chloride 0.9% (plus) 50 ML IV ×3 (04:01→22:41)
[2020-10-05 04:06] LABS: Basophils % 0.3 %; Eosinophils # 0.1 10^3/uL (0.0-0.8); Eosinophils % 1.2 %; Hematocrit 37.7 % (42.0-52.0); Hemoglobin 12.4 g/dL (11.7-16.6); Lymphocytes # 1.5 10^3/uL (0.8-4.8); Lymphocytes % 12.9 %; Mean Corpuscular HGB Conc 32.9 g/dL (30.0-36.0); Mean Corpuscular Volume 91.3 fL (80-94); Mean Platelet Volume 10.2 fL (7.4-10.4); Monocytes # 0.7 10^3/uL (0.2-0.9); Monocytes % 6.3 %; Neutrophils # 8.87 10^3/uL (1.8-7.7); Neutrophils % 77.7 %; Nucleated Red Blood Cells % 0 %; Platelet Count 293 10^3/cmm (130-400); Red Blood Count 4.13 10^6/uL (4.1-5.3); Red Cell Distribution Width 11.9 % (12.1-15.1); White Blood Count 11.4 10^3/uL (4.0-10.0)
[2020-10-05 04:28] LABS: Alanine Aminotransferase 29 U/L (0-41); Albumin Level 2.7 g/dL (3.5-5.2); Alkaline Phosphatase 94 IU/L (40-130); Anion Gap 11.6 (5-19); Aspartate Amino Transferase 21 U/L (0-40); Blood Urea Nitrogen 10 mg/dL (6-20); Calcium 8.3 mg/dL (8.5-10.5); Carbon Dioxide 29 mmol/L (22-29); Chloride 100 mmol/L (98-107); Globulin 3.2 g/dL (1.3-4.6); Glomerular Filtration Rate 89.7 mL/min (90-130); Glucose 98 mg/dL (65-115); Osmolality Calculated 283 mOsm/kg (285-295); Potassium 3.6 mmol/L (3.5-5.1); Sodium 137 mmol/L (136-145); Total Bilirubin 0.3 mg/dL (0.15-1.2); Total Protein 5.9 g/dL (6.6-8.7)
[2020-10-05] MEDS: allopurinol 100 mg Tablet PO (06:31)
[2020-10-05] MEDS: timolol 0.25% Op Soln 5 mL Btl 1 DROP EYE-BOTH (06:31)
[2020-10-05] MEDS: enoxaparin 40 mg/0.4 mL Syringe SUBCUT (06:31)
[2020-10-05] MEDS: lisinopril 20 mg Tablet PO (06:31)
--- NOTE | 2020-10-05 07:53 | PM.PN ---
Subjective Subjective: Interval history: Patient's ostomy started having stools yesterday, denies any significant abdominal pain, no nausea or vomiting, tolerating full liquid diet Vitals/I&O/Wt Last Vital Signs Temp 98.7 F 10/05/20 04:00 Pulse 87 10/05/20 06:00 Resp 17 10/05/20 04:00 BP 145/66 10/05/20 04:00 Pulse Ox 96 10/05/20 04:00 10/04/20 10/05/20 10/05/20 22:59 06:59 14:59 Intake Total 1310 / 1890 50 / 1890 Output Total 520 / 3170 1700 / 3170 265 / 265 Balance 790 / -1280 -1650 / -1280 -265 / -265 Physical Exam Narrative: EXAM NARRATIVE: Abdomen: Soft, nondistended, incision clean and intact, JOSH drain is serosanguineous, there is some erythema around the incision, the wound was probed with a Q-tip with fat necrosis noted, no diaz pus seen Urinary Catheter Management^: Harmon: Cath Placed During This Visit: yes, but has since been removed by the nurse Date Urinary Catheter Removed: 09/30/20 Time Urinary Catheter Discontinued: 09:00 Latex Free: Cath Placed During This Visit: yes, but has since been removed by the nurse Reason for Continuing Indwelling Catheter: Accurate Measurement of Urinary Output in Critically Ill Patients Urinary Catheter Date of Insertion: 09/30/20 Urinary Catheter Time of Insertion: 09:05 Date Urinary Catheter Removed: 10/01/20 Time Urinary Catheter Discontinued: 13:00 Data : 10/05/20 03:40 10/05/20 03:40 A&P Assessment and plan (1) S/P laparoscopic-assisted sigmoidectomy: 50-year-old male status post sigmoidectomy with colostomy for perforated sigmoid diverticulitis with postop ileus, stools present Patient has significant venous congestion of the ostomy but it is functioning, at this point we will continue to observe Neuro: Toradol, [place] for pain control Respiratory: Continue I-S Cardiovascular: Continue lisinopril, hydralazine prn GI: Advance to GI soft diet, continue lactulose for 15 cc p.o. twice daily for the bowel regimen, IV Pepcid for GI prophylaxis, flatus present Renal: Creatinine stable Endo: None ID: Continue vancomycin and Zosyn, WBC 11 , patient has been afebrile DVT prophylaxis: SCD/Lovenox JOSH drain to bulb suction Patient will need continued inpatient stay to ensure resolution of leukocytosis as well as postop complications Status: Acute Attestations Medical Necessity Statement*: Status post sigmoid colectomy doing well Coding Level of Care Code Acute Denier Control Operator for Chg Fwd Diagnoses S/P laparoscopic-assisted sigmoidectomy Z90.49
[2020-10-05] MEDS: lactulose oral liq 20 gm/30 mL UDC 10 GM PO ×2 (08:36→21:22)
[2020-10-05] MEDS: gabapentin 300 mg Capsule 600 MG PO ×3 (08:37→21:22)
[2020-10-05] MEDS: pantoprazole DR 40 mg Tablet PO (08:37)
[2020-10-05] MEDS: sertraline 50 mg Tablet 25 MG PO (08:37)
[2020-10-05 10:00] LABS: Vancomycin Trough 13.5 ug/mL (10-15)
--- NOTE | 2020-10-05 11:27 | P.PN_ITS ---
Subjective Subjective: Interval history: This is a 50-year-old male who presented to the hospital on September 30 with abdominal pain. He was found to have a perforated viscus and taken the OR for exploration. He was diagnosed with perforated sigmoid diverticulitis. He had colectomy completed. He is currently on antibiotics. Tolerated procedure well. diet advanced some watery stool noted in ostomy bag dressing soaked with SS fluid. Medications: Reviewed: Yes Vitals/I&O/Wt Last Vital Signs Temp 98.9 F 10/05/20 08:00 Pulse 94 10/05/20 11:04 Resp 18 10/05/20 08:00 BP 152/89 10/05/20 08:00 Pulse Ox 94 10/05/20 08:00 10/04/20 10/05/20 10/05/20 22:59 06:59 14:59 Intake Total 1310 / 1840 350 / 2190 240 / 240 Output Total 520 / 1470 1700 / 3170 1315 / 1315 Balance 790 / 370 -1350 / -980 -1075 / -1075 Physical Exam Const: COMMON NORMALS: no acute distress and patient oriented x3 GENERAL APPEARANCE: cooperative and comfortable NUTRITIONAL APPEARANCE: overweight Neck/C-Spine: COMMON NORMALS: no JVD Resp: COMMON NORMALS: normal respiratory effort and No retractions Cardio: COMMON NORMALS: no JVD and regular rate RATE: regular rate GI: OTHER: ostomy bag in place , inc dark liquid Neuro: COMMON NORMALS: patient oriented x3 and CN's II-XII intact bilaterally Psych: COMMON NORMALS: mental status grossly normal and Normal thought process present THOUGHT PROCESS: Normal thought process present Skin: COMMON NORMALS: no rashes or lesions noted GENERAL SKIN EXAM: no rashes or lesions noted Urinary Catheter Management^: Harmon: Cath Placed During This Visit: yes, but has since been removed by the nurse Date Urinary Catheter Removed: 09/30/20 Time Urinary Catheter Discontinued: 09:00 Latex Free: Cath Placed During This Visit: yes, but has since been removed by the nurse Reason for Continuing Indwelling Catheter: Accurate Measurement of Urinary Output in Critically Ill Patients Urinary Catheter Date of Insertion: 09/30/20 Urinary Catheter Time of Insertion: 09:05 Date Urinary Catheter Removed: 10/01/20 Time Urinary Catheter Discontinued: 13:00 Data : 10/05/20 03:40 10/05/20 03:40 A&P Assessment and plan (1) Elevated glucose: Status: Acute (2) S/P laparoscopic-assisted sigmoidectomy: Status: Acute (3) Arthralgia: Status: Acute Additional A&P Information This is a 50-year-old male admitted for perforated diverticulitis. Status post colectomy. 1. Status post sigmoidectomy -post op care -vanc and zosyn -advance diet 2. Gout -not in flare -on allopurinol 3. Chronic joint pains -PRN analgesics 4. Glaucoma -Continue home eyedrops 5. HTN -stable , continue home medications DVT:lovenox GI: Protonix Code: Full Disposition: Attestations Medical Necessity Statement*: Bogdan Vernon's hospital stay will require greater than 2 midnights for abd pain Coding Level of Care Code Acute Golf Ball Winder for Chg Fwd Diagnoses Elevated glucose R73.09 S/P laparoscopic-assisted sigmoidectomy Z90.49 Arthralgia M25.50
--- NOTE | 2020-10-05 11:55 | PC.NURSE ---
teaching done with patient's on colostomy changing, emptying, burping and milking of JOSH drain and emptying JOSH drain. patient's verbalized understanding of instructions.
[2020-10-05] MEDS: ketorolac 30 mg/mL INJ 15 MG IVP ×2 (12:46→23:57)
[2020-10-05] MEDS: latanoprost 0.005% Op Soln 2.5 mL Btl 1 DROP EYE-BOTH (21:23)
[2020-10-06] VITALS (7 sets, daily range): BP systolic 130–174; BP diastolic 83–98; PULSE 81–113; RESP 17–18; TEMP 36.7–37.4; O2SAT 93–96
[2020-10-06] MEDS: vancomycin 1,500 MG/300 ML PIGGYBACK 150 MG IV ×2 (02:28→09:20)
[2020-10-06 04:38] LABS: Basophils % 0.4 %; Eosinophils # 0.1 10^3/uL (0.0-0.8); Eosinophils % 1.3 %; Hematocrit 34.9 % (42.0-52.0); Hemoglobin 11.4 g/dL (11.7-16.6); Lymphocytes # 1.7 10^3/uL (0.8-4.8); Lymphocytes % 15.6 %; Mean Corpuscular HGB Conc 32.7 g/dL (30.0-36.0); Mean Corpuscular Volume 91.8 fL (80-94); Monocytes # 0.7 10^3/uL (0.2-0.9); Monocytes % 6.7 %; Neutrophils # 7.75 10^3/uL (1.8-7.7); Neutrophils % 72.5 %; Nucleated Red Blood Cells % 0 %; Platelet Count 293 10^3/cmm (130-400); White Blood Count 10.7 10^3/uL (4.0-10.0)
[2020-10-06 05:03] LABS: Alanine Aminotransferase 27 U/L (0-41); Albumin Level 2.6 g/dL (3.5-5.2); Alkaline Phosphatase 106 IU/L (40-130); Anion Gap 11.6 (5-19); Aspartate Amino Transferase 20 U/L (0-40); Blood Urea Nitrogen 11 mg/dL (6-20); Calcium 8.5 mg/dL (8.5-10.5); Carbon Dioxide 28 mmol/L (22-29); Chloride 101 mmol/L (98-107); Globulin 3.2 g/dL (1.3-4.6); Glomerular Filtration Rate 102.7 mL/min (90-130); Glucose 110 mg/dL (65-115); Osmolality Calculated 284 mOsm/kg (285-295); Potassium 3.6 mmol/L (3.5-5.1); Sodium 137 mmol/L (136-145); Total Bilirubin 0.3 mg/dL (0.15-1.2); Total Protein 5.8 g/dL (6.6-8.7)
[2020-10-06] MEDS: enoxaparin 40 mg/0.4 mL Syringe SUBCUT (05:36)
[2020-10-06] MEDS: allopurinol 100 mg Tablet PO (05:36)
[2020-10-06] MEDS: lisinopril 20 mg Tablet PO (05:36)
[2020-10-06] MEDS: timolol 0.25% Op Soln 5 mL Btl 1 DROP EYE-BOTH (05:36)
[2020-10-06] MEDS: piperacillin-tazobactam 3.375 GM in sodium chloride 0.9% (plus) 50 ML IV (05:36)
[2020-10-06] MEDS: HYDROcodone-acetaminophen 5-325 mg Tablet 1 TAB PO ×3 (05:43→15:31)
--- NOTE | 2020-10-06 08:28 | PC.NURSE ---
at bedside. verbal order for pain medication received.
[2020-10-06] MEDS: sertraline 50 mg Tablet 25 MG PO (08:37)
[2020-10-06] MEDS: gabapentin 300 mg Capsule 600 MG PO (08:37)
[2020-10-06] MEDS: lactulose oral liq 20 gm/30 mL UDC 10 GM PO (08:37)
[2020-10-06] MEDS: pantoprazole DR 40 mg Tablet PO (08:38)
--- NOTE | 2020-10-06 12:08 | PM.PN ---
Subjective Subjective: Interval history: Patient was noted to have bowel movements overnight. no fever or chill. no nausea or vomiting. Noted to have a bowel movement. Medications: Reviewed: Yes Vitals/I&O/Wt Last Vital Signs Temp 98.6 F 10/06/20 11:13 Pulse 89 10/06/20 11:13 Resp 18 10/06/20 11:13 BP 174/98 10/06/20 11:13 Pulse Ox 95 10/06/20 11:13 10/05/20 10/06/20 10/06/20 22:59 06:59 14:59 Intake Total 590 / 1420 350 / 1770 360 / 360 Output Total 525 / 1965 350 / 2315 1175 / 1175 Balance 65 / -545 0 / -545 -815 / -815 Physical Exam Narrative: EXAM NARRATIVE: General exam ;Alert, awake, NAD HEENT : Grossly unremarkable Cardiovascular regular rate and rhythm without murmur. No S3 or S4 Lungs clear no wheezing or crackles Abdomen bowel sounds noted. Ostomy - stool output, gauze Extremities no cyanosis clubbing or edema. Cap refill brisk Neck/C-Spine: COMMON NORMALS: no JVD Resp: COMMON NORMALS: normal respiratory effort and No retractions Cardio: COMMON NORMALS: no JVD Urinary Catheter Management^: Harmon: Cath Placed During This Visit: yes, but has since been removed by the nurse Date Urinary Catheter Removed: 09/30/20 Time Urinary Catheter Discontinued: 09:00 Latex Free: Cath Placed During This Visit: yes, but has since been removed by the nurse Reason for Continuing Indwelling Catheter: Accurate Measurement of Urinary Output in Critically Ill Patients Urinary Catheter Date of Insertion: 09/30/20 Urinary Catheter Time of Insertion: 09:05 Date Urinary Catheter Removed: 10/01/20 Time Urinary Catheter Discontinued: 13:00 Data : 10/06/20 03:54 10/06/20 03:54 A&P Assessment and plan (1) Elevated glucose: Patiently elevated Status: Acute (2) S/P laparoscopic-assisted sigmoidectomy: Status: Acute (3) Arthralgia: Status: Acute Additional A&P Information This is a 50-year-old male admitted for perforated diverticulitis. Status post colectomy. 1. Status post sigmoidectomy/Colostomy - Mangement per surgery - Noted to have bowel movement - Teaching care to patients for home - on IV abx - switced to levaquin/flagyl - Labs stable - Packing 2. Gout -not in flare -on allopurinol 3. Chronic joint pains -PRN analgesics 4. Glaucoma -Continue home eyedrops 5. HTN -stable , continue home medications DVT:lovenox GI: Protonix Code: Full Disposition: Ok to dicharge from medical standpoint Attestations Medical Necessity Statement*: Discharge planning per primary team. Anticipate discharge home today Time Spent in Patient Care: Greater than 35 minutes Coding Level of Care Code Acute Boring Machine Set Up Operator Jig for Chg Fwd Diagnoses Elevated glucose R73.09 S/P laparoscopic-assisted sigmoidectomy Z90.49 Arthralgia M25.50
--- NOTE | 2020-10-06 14:27 | PC.NURSE ---
patient requesting to go home today. patient's at bedside. promotion writer notified Dr Salas. Per Dr Salas, he will put discharge orders in for patient.
--- NOTE | 2020-10-06 14:31 | PC.NURSE ---
patient is currently getting ostomy changed and HR is 113.
--- NOTE | 2020-10-06 14:44 | PC.NURSE ---
at bedside. dressing changed and ostomy bag was replaed. Pt and instructed on dressing changes and ostomy care. both verbalize understanding
--- NOTE | 2020-10-06 15:51 | PC.NURSE ---
at bedside. discharge education provided. pt and verbalize understanding of discharge instructions, medications, dressing change instructions, ostomy care, and follow up appointments.
--- NOTE | 2020-10-06 16:22 | PC.NURSE ---
pt discharged and wheeled to main entrance.
--- NOTE | 2020-10-09 19:16 | P.DS_ITS ---
Discharge Providers Date of Admission: 09/30/20 09:21 Date of Discharge: October 06, 2020 Attending Provider at Admission: Dontrell Salas MD Attending Provider at Discharge: Dontrell Salas MD Primary Care Provider: Linwood Ocasio DO Diagnoses at Discharge Discharge Diagnosis (1) Elevated glucose: Status: Resolved (2) S/P laparoscopic-assisted sigmoidectomy: Status: Acute Permanent problem details: with colostomy (3) Arthralgia: Status: Acute Reason for Visit Reason for Visit: severe right side abdominal pain Hospital Course Hospital Course This is a 50-year-old male who presented to the ER with abdominal pain and was noted to have sigmoid diverticulitis with perforation for which he underwent laparoscopic sigmoid colectomy. On initial presentation, patient was hypotensive requiring pressor support. By day 3 patient was moved out of the ICU and by day 4 patient was passing flatus through the colostomy. He was afebrile, hemodynamically stable and his diet was slowly advanced to GI soft diet at the time of discharge. His wound was being packed and he was discharged home on oral antibiotics Physical Exam Urinary Catheter Management^: Harmon: Cath Placed During This Visit: yes, but has since been removed by the nurse Date Urinary Catheter Removed: 09/30/20 Time Urinary Catheter Discontinued: 09:00 Latex Free: Cath Placed During This Visit: yes, but has since been removed by the nurse Reason for Continuing Indwelling Catheter: Accurate Measurement of Urinary Output in Critically Ill Patients Urinary Catheter Date of Insertion: 09/30/20 Urinary Catheter Time of Insertion: 09:05 Date Urinary Catheter Removed: 10/01/20 Time Urinary Catheter Discontinued: 13:00 Discharge Data Data Completed and Pending: Completed Studies During Hospitalization Category Date Time Status CT abdomen pelvis w con* [id number] Urge nt Cat Scan 09/30/20 00:22 Completed XR chest 1V javi ble [id number] Routine Exams 09/30/20 04:25 Completed XR chest 1V javi ble [id number] Stat Exams 10/01/20 09:03 Completed Pathology: Surgic al [PTH] Routine Pth 09/30/20 09:24 Completed Pending at discharge Category Date Time Status ES surgery / GI i mages Routine Exams 09/30/20 06:10 Taken Vitals: Last Vital Signs Temp 99.4 F 10/06/20 16:23 Pulse 108 H 10/06/20 16:23 Resp 18 10/06/20 16:23 BP 130/83 10/06/20 16:23 Pulse Ox 93 10/06/20 16:23 Discharge Plan Discharge Patient Disposition: Home Condition: Stable Prescriptions: New metronidazole [Flagyl] 500 mg tablet 500 mg PO Q8H 5 Days Qty: 15 RF: 0 Continued timolol maleate 0.25 % drops 1 drop ophthalmic (eye) DAILY@0600 RF: 0 ibuprofen 200 mg capsule 800 mg PO Q6H PRN (Reason: Pain) RF: 0 hydrocodone-acetaminophen 5-325 mg tablet 1 tab PO DAILY PRN (Reason: pain) 7 Days Qty: 7 RF: 0 latanoprost 0.005 % drops 1 drp ophthalmic (eye) DAILY@0600 RF: 0 indomethacin 50 mg capsule 50 mg PO TID@0600,1200,1800 RF: 0 lisinopril 20 mg tablet 20 mg PO DAILY@2100 RF: 0 allopurinol 100 mg tablet 100 mg PO DAILY@0600 RF: 0 colchicine 0.6 mg tablet 0.6 mg PO DAILY PRN (Reason: unknown) RF: 0 No Action gabapentin 600 mg tablet 600 mg PO TID@0600,1200,1800 RF: 0 levofloxacin 750 mg tablet 750 mg PO DAILY@0600 RF: 0 lactulose 10 gram/15 mL solution 15 ml PO BID@0600,1800 RF: 0 cholecalciferol (vitamin D3) 1,250 mcg (50,000 unit) capsule 50,000 unit PO Q7D RF: 0 Discharge Orders: Discharge Order (Routine); Ordered 10/06/20 Ordered By: Dontrell Salas Other Ambulatory Orders: DME: Santos (Order) Location: None Selected Ordered By: Dontrell Salas [facility]Other[facility] (You should receive trial supplies in the mail and rep will follow up with you next week to see how they are working for you. Please call if you have questions before then. ) Linwood Ocasio DO [Primary Care Provider] - 10/15/20 11:00 am (appointment in [facility]) Dontrell Salas MD [Physician] - 10/14/20 1:15 pm (next tuesday) Discharge Diet: GI Soft Patient Instructions: Hydrocodone/Acetaminophen (By mouth), Metronidazole (By mouth), Levofloxacin (By mouth), Gout, Hypertension, Colostomy Care (DC), Colectomy (DC), Surgical Site Infections (GEN) Activity Restrictions/Additional Instructions: 1. Up and walking as tolerated. 2. Ok to shower 3. pack wound with 1/2 inch ribbon gauze once daily after irrigating the wound 4. Do not lift more than 10 pounds. 5. Do not operate heavy machinery or drive while using pain medications. 6. Advised to return to ER or contact my office if there are any signs of infection like, increasing pain, fevers, chills, redness or drainage of pus. 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
== END 2020-10-06 16:24 | disposition home or self-care (01) | DRG 330 ==
LOC: ER 02:12 → ICU 05:10 → MEDSURG 10-02 13:48
PROVIDERS: Internal Medicine; Admitting Provider Surgery; Emergency Provider Emergency Medicine; PCP Family Medicine; Visit Provider Surgery
PROC: 0DTN4ZZ Resection of Sigmoid Colon, Percutaneous Endoscopic Approach (ICD-10-PCS; CPT 44204; principal; 2020-09-30 07:00)
PROC: 0DTN4ZZ Resection of Sigmoid Colon, Percutaneous Endoscopic Approach (ICD-10-PCS; CPT 44320; 2020-09-30 07:00)
DX: K57.20 Diverticulitis of large intestine with perforation and abscess without bleeding (principal); J90 Pleural effusion, not elsewhere classified; M47.896 Other spondylosis, lumbar region; G89.29 Other chronic pain; M10.9 Gout, unspecified; I10 Essential (primary) hypertension; I95.9 Hypotension, unspecified; R73.9 Hyperglycemia, unspecified; F32.9 Major depressive disorder, single episode, unspecified; F41.9 Anxiety disorder, unspecified; H40.9 Unspecified glaucoma; Z79.891 Long term (current) use of opiate analgesic
CPT/HCPCS: 12345; 36415; 36416; 71045; 74177; 80048; 80053; 80202; 81003; 82962; 83036; 83605; 83690; 85007; 85025; 85610; 86850; 86900; 87641; 88309; 93005; 94664; 96372; 97110; 97116; 97161; 97530; 99283; C9290; J0131; J0330; J1170; J1650; J1885; J1940; J2270; J2370; J2405; J2543; J2704; J2710; J2765; J3010; J3370; J3490; J7030; Q9967

== ENCOUNTER 2020-10-09 14:54 | Inpatient (IN) | payer OTHER, SELFPAY ==
[2020-10-09] VITALS (16 sets, daily range): BP systolic 117–145; BP diastolic 73–96; PULSE 92–114; RESP 14–21; TEMP 36.1–37.2; O2SAT 93–96; BMI 35.2
--- NOTE | 2020-10-09 15:16 | W.ED.ABDPA2 ---
Documented by User: JOHN Dias 10/09/20 16:59 HPI - Abdominal Pain General: Chief Complaint: Abdominal Pain Stated Complaint: LEAKING AROUND STOMA/SURGERY 1 WEEK AGO Time Seen by Provider: 10/09/20 15:10 Source: patient and family Mode of arrival: ambulatory Limitations: no limitations History of Present Illness: HPI narrative: Patient is a very nice 50-year-old gentleman who presents to the ED today along with his for complaints of dehiscence to his abdominal incision and leaking around his stoma. Patient was seen in the ED on 09/30 and diagnosed with diverticulitis with perforation. While in the ED he clinically deteriorated and became tachycardic and hypotensive. Dr. Salas came and took patient emergently to the OR where he had laparoscopic sigmoid colectomy with end colostomy performed. Patient tells me he was discharged home on 10/06 and was doing well. He states on 10/07 he coughed very hard and felt like he ripped something . He states since then he has noticed stool leaking out of his abdominal incision and stool leaking around his stoma. He has also noticed redness and warmth to his abdomen. No fevers. MD elicited complaint: abdominal pain Pertinent past history: other (recent colostomy) Associated Symptoms: Denies change in stool character, chills, dysuria, fever(s), nausea and vomiting Review of Systems Const: Denies: fever(s), chills, body aches, fatigue or malaise Card: Denies: chest pain Resp: Denies: dyspnea GI: Reports: abdominal pain and other (stool leakage ); Denies: nausea, vomiting or change in stool character : Denies: flank pain, difficulty urinating, dysuria, urinary frequency or urinary urgency Musc: Denies: neck pain or back pain Skin/Breast: Reports: erythema (to abdomen) Neuro: Denies: headache(s) PFS ED PFSH: Medical History (Updated 10/09/20 @ 22:22 by James Bennett MD, [facility] [place] Arthritis of facet joint of lumbar spine Chronic low back pain Gout HTN (hypertension), benign Surgical History (Updated 10/01/20 @ 15:32 by Dontrell Salas MD) H/O knee surgery Hx of inguinal hernia surgery S/P laparoscopic-assisted sigmoidectomy (09/30/20) with colostomy Family History Father Spondylosis Aorta aneurysm Mother Cancer Depression Social History Smoking and tobacco status: former smoker Alcohol intake: current Alcohol intake frequency: holidays/special occasions only Alcohol type: beer History of recent travel: No Physical Exam Const: COMMON NORMALS: no acute distress, patient oriented x3, no limitations and alert NUTRITIONAL APPEARANCE: obese ORIENTATION/CONSCIOUSNESS: Yes awake, Yes oriented to person, Yes oriented to place and Yes oriented to time Resp: COMMON NORMALS: normal respiratory effort and clear to auscultation bilaterally AUSCULTATION: clear to auscultation bilaterally Cardio: COMMON NORMALS: regular rhythm RATE: tachycardic RHYTHM: regular rhythm GI: AUSCULTATION: Yes normoactive bowel sounds OTHER: pt has wound dehiscence of his agnieszka located just inferior to umbilicus; there is stool coming out of this incision; he has stool leakage around his stoma; there is abdominal cellulitis/warmth present Neuro: COMMON NORMALS: patient oriented x3 SENSORIUM/ORIENTATION: Yes alert, Yes oriented to person, Yes oriented to place and Yes oriented to time Course ED course: Dr. Salas has seen patient here in ED. He is writing orders at this time and would like patient admitted. Dr. Bennett is aware of patient and will write admit orders once CT scan is completed/read. Vital Signs: Vital signs: Vital Signs Temperature 98.9 F 10/09/20 18:01 Pulse Rate 92 10/09/20 18:01 Respiratory Rate 18 10/09/20 19:59 Blood Pressure 144/73 10/09/20 18:01 Pulse Oximetry 94 10/09/20 18:01 MDM - Abdominal Pain Lab Data: Labs: Lab Results 10/09/20 10/09/20 10/09/20 Range/Units 15:35 15:35 15:35 WBC 14.2 H (4.0-10.0) 10^3/ uL RBC 4.34 (4.1-5.3) 10^6/u L Hgb 12.8 (11.7-16.6) g/dL Hct 39.1 L (42.0-52.0) % MCV 90.1 (80-94) fL MCH 29.5 (28.0-34.0) pg MCHC 32.7 (30.0-36.0) g/dL RDW 12.0 L (12.1-15.1) % Plt Count 445 H (130-400) 10^3/c mm MPV 10.3 (7.4-10.4) fL Neut % (Auto) 84.6 % Lymph % (Auto) 8.3 % [place] % (Auto) 5.4 % Eos % (Auto) 0.7 % Baso % (Auto) 0.4 % Neut # (Auto) 11.97 H (1.8-7.7) 10^3/u L Lymph # (Auto) 1.2 (0.8-4.8) 10^3/u L [place] # (Auto) 0.8 (0.2-0.9) 10^3/u L Eos # (Auto) 0.1 (0.0-0.8) 10^3/u L Baso # (Auto) 0.1 (0.0-0.1) 10^3/u L Nucleated RBC % (a uto) 0 % Nucleated RBCs # 0.0 /100WBC Sodium 137 (136-145) mmol/L Potassium 4.1 (3.5-5.1) mmol/L Chloride 103 (98-107) mmol/L Carbon Dioxide 25 (22-29) mmol/L Anion Gap 13.1 (5-19) BUN 12 (6-20) mg/dL Creatinine 0.8 (0.7-1.2) mg/dL GFR Calculation 102.7 (90-130) mL/min Glucose 117 H (65-115) mg/dL Calculated Osmolal ity 285 (285-295) mOsm/k g Lactate 1.0 (0.5-2.2) mmol/L Calcium 9.0 (8.5-10.5) mg/dL Total Bilirubin 0.4 (0.15-1.2) mg/dL AST 19 (0-40) U/L ALT 30 (0-41) U/L Alkaline Phosphata se 150 H (40-130) IU/L Total Protein 6.9 (6.6-8.7) g/dL Albumin 3.0 L (3.5-5.2) g/dL Globulin 3.9 (1.3-4.6) g/dL Lipase 143 H (13-60) U/L Urine Color (Yellow) Urine Appearance (CLEAR) Urine pH (5-7) Ur Specific Gravit y (1.005-1.030) Urine Protein (Negative) Urine Glucose (UA) (Normal) Urine Ketones (Negative) Urine Blood (Negative) Urine Nitrate (Negative) Urine Bilirubin (Negative) Urine Urobilinogen (Negative) mg/dL Ur Leukocyte Trinidad ase (Negative) 10/09/20 Range/Units 16:24 WBC (4.0-10.0) 10^3/ uL RBC (4.1-5.3) 10^6/u L Hgb (11.7-16.6) g/dL Hct (42.0-52.0) % MCV (80-94) fL MCH (28.0-34.0) pg MCHC (30.0-36.0) g/dL RDW (12.1-15.1) % Plt Count (130-400) 10^3/c mm MPV (7.4-10.4) fL Neut % (Auto) % Lymph % (Auto) % [place] % (Auto) % Eos % (Auto) % Baso % (Auto) % Neut # (Auto) (1.8-7.7) 10^3/u L Lymph # (Auto) (0.8-4.8) 10^3/u L [place] # (Auto) (0.2-0.9) 10^3/u L Eos # (Auto) (0.0-0.8) 10^3/u L Baso # (Auto) (0.0-0.1) 10^3/u L Nucleated RBC % (a uto) % Nucleated RBCs # /100WBC Sodium (136-145) mmol/L Potassium (3.5-5.1) mmol/L Chloride (98-107) mmol/L Carbon Dioxide (22-29) mmol/L Anion Gap (5-19) BUN (6-20) mg/dL Creatinine (0.7-1.2) mg/dL GFR Calculation (90-130) mL/min Glucose (65-115) mg/dL Calculated Osmolal ity (285-295) mOsm/k g Lactate (0.5-2.2) mmol/L Calcium (8.5-10.5) mg/dL Total Bilirubin (0.15-1.2) mg/dL AST (0-40) U/L ALT (0-41) U/L Alkaline Phosphata se (40-130) IU/L Total Protein (6.6-8.7) g/dL Albumin (3.5-5.2) g/dL Globulin (1.3-4.6) g/dL Lipase (13-60) U/L Urine Color Crystal (Yellow) Urine Appearance Clear (CLEAR) Urine pH 6 (5-7) Ur Specific Gravit y 1.015 (1.005-1.030) Urine Protein Neg (Negative) Urine Glucose (UA) Norm (Normal) Urine Ketones Negative (Negative) Urine Blood Neg (Negative) Urine Nitrate Negative (Negative) Urine Bilirubin Neg (Negative) Urine Urobilinogen Norm (Negative) mg/dL Ur Leukocyte Trinidad ase Negative (Negative) Discharge Plan Discharge Patient Disposition: Admitted As Inpatient Admit Provider: Dontrell Salas Clinical Impression: Abdominal wound dehiscence Qualifiers: Encounter type: initial encounter Qualified Code(s): T81.30XA - Disruption of wound, unspecified, initial encounter Condition: Stable Sign Out Sign Out Data: Patient Sign Out occurred on 10/09/20 at 17:08. Patient's care was discussed, and care was transferred from to James Bennett MD, [facility] [place]. Coding Level of Care Code ED Hotel Custodian for Chg Fwd Exam Expanded Problem Focused Documented by User: James Bennett MD, [facility] [place] 10/09/20 22:22 HPI - Abdominal Pain General: Chief Complaint: Abdominal Pain Stated Complaint: LEAKING AROUND STOMA/SURGERY 1 WEEK AGO Time Seen by Provider: 10/09/20 15:10 PFSH ED PFSH: Medical History (Updated 10/09/20 @ 22:22 by James Bennett MD, [facility] [place]) Arthritis of facet joint of lumbar spine Chronic low back pain Gout HTN (hypertension), benign Surgical History (Updated 10/01/20 @ 15:32 by Dontrell Salas MD) H/O knee surgery Hx of inguinal hernia surgery S/P laparoscopic-assisted sigmoidectomy (09/30/20) with colostomy Family History Father Spondylosis Aorta aneurysm Mother Cancer Depression Social History Smoking and tobacco status: former smoker Alcohol intake: current Alcohol intake frequency: holidays/special occasions only Alcohol type: beer History of recent travel: No Course Vital Signs: Vital signs: Vital Signs Temperature 98.9 F 10/09/20 18:01 Pulse Rate 92 10/09/20 18:01 Respiratory Rate 18 10/09/20 19:59 Blood Pressure 144/73 10/09/20 18:01 Pulse Oximetry 94 10/09/20 18:01 MDM - Abdominal Pain MDM Narrative: Medical decision making narrative: Kindly see the midlevel providers note for complete history and physical. I agree with her findings. Essentially this is a 50-year-old male who recently had sigmoid colon resection for diverticulitis. He also has a colostomy. He had an episode of coughing following which she felt something tear in his abdomen. He has been leaking fecal matter from his surgical wound. He has some dehiscence of his surgical wound and possibly a fistula. He will be taken to the operating room by Dr. Salas for exploration and repair. Medical Records: Attestation: I reviewed the patient's medical records. Lab Data: Attestation: I reviewed the patient's lab results. Labs: Lab Results 10/09/20 10/09/20 10/09/20 Range/Units 15:35 15:35 15:35 WBC 14.2 H (4.0-10.0) 10^3/ uL RBC 4.34 (4.1-5.3) 10^6/u L Hgb 12.8 (11.7-16.6) g/dL Hct 39.1 L (42.0-52.0) % MCV 90.1 (80-94) fL MCH 29.5 (28.0-34.0) pg MCHC 32.7 (30.0-36.0) g/dL RDW 12.0 L (12.1-15.1) % Plt Count 445 H (130-400) 10^3/c mm MPV 10.3 (7.4-10.4) fL Neut % (Auto) 84.6 % Lymph % (Auto) 8.3 % [place] % (Auto) 5.4 % Eos % (Auto) 0.7 % Baso % (Auto) 0.4 % Neut # (Auto) 11.97 H (1.8-7.7) 10^3/u L Lymph # (Auto) 1.2 (0.8-4.8) 10^3/u L [place] # (Auto) 0.8 (0.2-0.9) 10^3/u L Eos # (Auto) 0.1 (0.0-0.8) 10^3/u L Baso # (Auto) 0.1 (0.0-0.1) 10^3/u L Nucleated RBC % (a uto) 0 % Nucleated RBCs # 0.0 /100WBC Sodium 137 (136-145) mmol/L Potassium 4.1 (3.5-5.1) mmol/L Chloride 103 (98-107) mmol/L Carbon Dioxide 25 (22-29) mmol/L Anion Gap 13.1 (5-19) BUN 12 (6-20) mg/dL Creatinine 0.8 (0.7-1.2) mg/dL GFR Calculation 102.7 (90-130) mL/min Glucose 117 H (65-115) mg/dL Calculated Osmolal ity 285 (285-295) mOsm/k g Lactate 1.0 (0.5-2.2) mmol/L Calcium 9.0 (8.5-10.5) mg/dL Total Bilirubin 0.4 (0.15-1.2) mg/dL AST 19 (0-40) U/L ALT 30 (0-41) U/L Alkaline Phosphata se 150 H (40-130) IU/L Total Protein 6.9 (6.6-8.7) g/dL Albumin 3.0 L (3.5-5.2) g/dL Globulin 3.9 (1.3-4.6) g/dL Lipase 143 H (13-60) U/L Urine Color (Yellow) Urine Appearance (CLEAR) Urine pH (5-7) Ur Specific Gravit y (1.005-1.030) Urine Protein (Negative) Urine Glucose (UA) (Normal) Urine Ketones (Negative) Urine Blood (Negative) Urine Nitrate (Negative) Urine Bilirubin (Negative) Urine Urobilinogen (Negative) mg/dL Ur Leukocyte Trinidad ase (Negative) 10/09/20 Range/Units 16:24 WBC (4.0-10.0) 10^3/ uL RBC (4.1-5.3) 10^6/u L Hgb (11.7-16.6) g/dL Hct (42.0-52.0) % MCV (80-94) fL MCH (28.0-34.0) pg MCHC (30.0-36.0) g/dL RDW (12.1-15.1) % Plt Count (130-400) 10^3/c mm MPV (7.4-10.4) fL Neut % (Auto) % Lymph % (Auto) % [place] % (Auto) % Eos % (Auto) % Baso % (Auto) % Neut # (Auto) (1.8-7.7) 10^3/u L Lymph # (Auto) (0.8-4.8) 10^3/u L [place] # (Auto) (0.2-0.9) 10^3/u L Eos # (Auto) (0.0-0.8) 10^3/u L Baso # (Auto) (0.0-0.1) 10^3/u L Nucleated RBC % (a uto) % Nucleated RBCs # /100WBC Sodium (136-145) mmol/L Potassium (3.5-5.1) mmol/L Chloride (98-107) mmol/L Carbon Dioxide (22-29) mmol/L Anion Gap (5-19) BUN (6-20) mg/dL Creatinine (0.7-1.2) mg/dL GFR Calculation (90-130) mL/min Glucose (65-115) mg/dL Calculated Osmolal ity (285-295) mOsm/k g Lactate (0.5-2.2) mmol/L Calcium (8.5-10.5) mg/dL Total Bilirubin (0.15-1.2) mg/dL AST (0-40) U/L ALT (0-41) U/L Alkaline Phosphata se (40-130) IU/L Total Protein (6.6-8.7) g/dL Albumin (3.5-5.2) g/dL Globulin (1.3-4.6) g/dL Lipase (13-60) U/L Urine Color Crystal (Yellow) Urine Appearance Clear (CLEAR) Urine pH 6 (5-7) Ur Specific Gravit y 1.015 (1.005-1.030) Urine Protein Neg (Negative) Urine Glucose (UA) Norm (Normal) Urine Ketones Negative (Negative) Urine Blood Neg (Negative) Urine Nitrate Negative (Negative) Urine Bilirubin Neg (Negative) Urine Urobilinogen Norm (Negative) mg/dL Ur Leukocyte Trinidad ase Negative (Negative) Imaging Data ^: CT Abd/Pel: Radiologist's impression: [address] [address] [address] Scan Report Signed Patient: Bogdan Vernonnit #: [id number] : 1970Acct#:[id number] Age/Sex: 50 / MADM Date: 10/09/20 Loc: [facility]/Bed: Attending Dr: Dontrell Salas MD Ordering Provider/Ordering MD: Dontrell Salas MD Date of Service: 10/09/20 Procedure(s): CT abdomen pelvis w con* [id number] Accession Number(s): [id number] Report Number: [id number] PROCEDURE INFORMATION: Exam: CT Abdomen And Pelvis With Contrast Exam date and time: 10/09/2020 4:06 PM Age: 50 years old Clinical indication: Other: Feces in midline; Prior surgery; Additional info: S/P sigmoid colectomy with colostomy with feces in midline TECHNIQUE: Imaging protocol: Computed tomography of the abdomen and pelvis with intravenous contrast. Radiation optimization: All CT scans at this facility use at least one of these dose optimization techniques: automated exposure control; mA and/or kV adjustment per patient size (includes targeted exams where dose is matched to clinical indication); or iterative reconstruction. Contrast material: OMNI 300; Contrast volume: 95 ml; Contrast route: INTRAVENOUS (IV); Other contrast: Oral, OMNI 300, 25; COMPARISON: CT abdomen pelvis w con* [id number] 09/30/2020 12:39 AM RADIATION DOSE METRICS: Total DLP (mGy-cm): 1844.43 FINDINGS: Lungs: Dependent atelectasis in both lower lobes. Liver: Calcified granuloma in the liver. Gallbladder and bile ducts: Normal. No calcified stones. No ductal dilation. Pancreas: Normal. No ductal dilation. Spleen: Normal. No splenomegaly. Adrenal glands: Normal. No mass. Kidneys and ureters: Normal. No hydronephrosis. Stomach and bowel: Partial resection of the sigmoid colon with a left lower quadrant colostomy and Humphreys's pouch. Fluid and gas bubbles adjacent to the colectomy stump and within the incision. The stomach is normal. There are a few loops of slightly dilated small bowel measuring 3.8 cm without transition point or obstruction. Tiny gas bubbles in the anterior peritoneum adjacent to the incision. Appendix: The appendix is visualized and is normal. Intraperitoneal space: Unremarkable. No free air. No significant fluid collection. Vasculature: Unremarkable. No abdominal aortic aneurysm. Lymph nodes: Unremarkable. No enlarged lymph nodes. Urinary bladder: Unremarkable as visualized. Reproductive: Unremarkable as visualized. Bones/joints: Unremarkable. No acute fracture. Soft tissues: Anterior laparotomy incision with partial dehiscence and fluid and gas bubbles within the incision. 2.5 cm gas collection with small amount of fluid adjacent to the colostomy stump, which appears to communicate with the anterior laparotomy incision. Gas within the colostomy incision, most likely partial dehiscence. Trocar site in the anterior right abdominal wall CT/CT abdomen pelvis w con* [id number] IMPRESSION: 1. Partial sigmoid colon resection with left lower quadrant colostomy. 2. Soft tissue infection and dehiscence along the anterior laparotomy incision and left colostomy incision. 3. Small gas bubbles in the anterior peritoneal cavity adjacent to the incision is most likely postsurgical gas, but could also represent infection. Radiation Dose CTDIVOL = (mGy): DLP = 1844.43 (mGy-cm) Dictated By:Arnoldo Bhagat Signed By:Arnoldo BhagatSignkobi Date/Time:10/09/201843 DD/ 42 Discharge Plan Discharge Patient Disposition: Admitted As Inpatient Admit Provider: Dontrell Salas Clinical Impression: Abdominal wound dehiscence Qualifiers: Encounter type: initial encounter Qualified Code(s): T81.30XA - Disruption of wound, unspecified, initial encounter Condition: Stable Sign Out Sign Out Data: Patient Sign Out occurred on 10/09/20 at 17:08. Patient's care was discussed, and care was transferred from to James Bennett MD, [facility] [place] Coding Level of Care Code ED Hotel Custodian for Chg Fwd Exam Expanded Problem Focused
--- NOTE | 2020-10-09 15:29 | CTR_ITS ---
PROCEDURE INFORMATION: Exam: CT Abdomen And Pelvis With Contrast Exam date and time: 10/09/2020 4:06 PM Age: 50 years old Clinical indication: Other: Feces in midline; Prior surgery; Additional info: S/P sigmoid colectomy with colostomy with feces in midline TECHNIQUE: Imaging protocol: Computed tomography of the abdomen and pelvis with intravenous contrast. Radiation optimization: All CT scans at this facility use at least one of these dose optimization techniques: automated exposure control; mA and/or kV adjustment per patient size (includes targeted exams where dose is matched to clinical indication); or iterative reconstruction. Contrast material: OMNI 300; Contrast volume: 95 ml; Contrast route: INTRAVENOUS (IV); Other contrast: Oral, OMNI 300, 25; COMPARISON: CT abdomen pelvis w con* [id number] 09/30/2020 12:39 AM RADIATION DOSE METRICS: Total DLP (mGy-cm): 1844.43 FINDINGS: Lungs: Dependent atelectasis in both lower lobes. Liver: Calcified granuloma in the liver. Gallbladder and bile ducts: Normal. No calcified stones. No ductal dilation. Pancreas: Normal. No ductal dilation. Spleen: Normal. No splenomegaly. Adrenal glands: Normal. No mass. Kidneys and ureters: Normal. No hydronephrosis. Stomach and bowel: Partial resection of the sigmoid colon with a left lower quadrant colostomy and Humphreys's pouch. Fluid and gas bubbles adjacent to the colectomy stump and within the incision. The stomach is normal. There are a few loops of slightly dilated small bowel measuring 3.8 cm without transition point or obstruction. Tiny gas bubbles in the anterior peritoneum adjacent to the incision. Appendix: The appendix is visualized and is normal. Intraperitoneal space: Unremarkable. No free air. No significant fluid collection. Vasculature: Unremarkable. No abdominal aortic aneurysm. Lymph nodes: Unremarkable. No enlarged lymph nodes. Urinary bladder: Unremarkable as visualized. Reproductive: Unremarkable as visualized. Bones/joints: Unremarkable. No acute fracture. Soft tissues: Anterior laparotomy incision with partial dehiscence and fluid and gas bubbles within the incision. 2.5 cm gas collection with small amount of fluid adjacent to the colostomy stump, which appears to communicate with the anterior laparotomy incision. Gas within the colostomy incision, most likely partial dehiscence. Trocar site in the anterior right abdominal wall CT/CT abdomen pelvis w con* [id number] IMPRESSION: 1. Partial sigmoid colon resection with left lower quadrant colostomy. 2. Soft tissue infection and dehiscence along the anterior laparotomy incision and left colostomy incision. 3. Small gas bubbles in the anterior peritoneal cavity adjacent to the incision is most likely postsurgical gas, but could also represent infection. Radiation Dose CTDIVOL = (mGy): DLP = 1844.43 (mGy-cm)
[2020-10-09 15:43] LABS: Basophils # 0.1 10^3/uL (0.0-0.1); Basophils % 0.4 %; Eosinophils # 0.1 10^3/uL (0.0-0.8); Eosinophils % 0.7 %; Hematocrit 39.1 % (42.0-52.0); Hemoglobin 12.8 g/dL (11.7-16.6); Lymphocytes # 1.2 10^3/uL (0.8-4.8); Lymphocytes % 8.3 %; Mean Corpuscular HGB Conc 32.7 g/dL (30.0-36.0); Mean Corpuscular Hemoglobin 29.5 pg (28.0-34.0); Mean Corpuscular Volume 90.1 fL (80-94); Mean Platelet Volume 10.3 fL (7.4-10.4); Monocytes # 0.8 10^3/uL (0.2-0.9); Monocytes % 5.4 %; Neutrophils # 11.97 10^3/uL (1.8-7.7); Neutrophils % 84.6 %; Nucleated Red Blood Cells % 0 %; Platelet Count 445 10^3/cmm (130-400); Red Blood Count 4.34 10^6/uL (4.1-5.3); White Blood Count 14.2 10^3/uL (4.0-10.0)
[2020-10-09] MEDS: morphine 4 mg/mL SDV 1 mL IVP (15:59)
[2020-10-09] MEDS: ondansetron 2 mg/ML SDV 2 mL 4 MG IVP (16:00)
[2020-10-09] MEDS: piperacillin-tazobactam 3.375 GM in sodium chloride 0.9% (plus) 50 ML IV (16:05)
[2020-10-09 16:28] LABS: Alanine Aminotransferase 30 U/L (0-41); Alkaline Phosphatase 150 IU/L (40-130); Anion Gap 13.1 (5-19); Aspartate Amino Transferase 19 U/L (0-40); Blood Urea Nitrogen 12 mg/dL (6-20); Carbon Dioxide 25 mmol/L (22-29); Chloride 103 mmol/L (98-107); Globulin 3.9 g/dL (1.3-4.6); Glomerular Filtration Rate 102.7 mL/min (90-130); Glucose 117 mg/dL (65-115); Lipase 143 U/L (13-60); Osmolality Calculated 285 mOsm/kg (285-295); Potassium 4.1 mmol/L (3.5-5.1); Sodium 137 mmol/L (136-145); Total Bilirubin 0.4 mg/dL (0.15-1.2); Total Protein 6.9 g/dL (6.6-8.7)
[2020-10-09 16:35] LABS: Add Urine Microscopic? NO
[2020-10-09 16:44] LABS: Bilirubin Urine Neg (Negative); Blood Urine Neg (Negative); Glucose Urine UA Norm (Normal); Ketones Urine Negative (Negative); Leukocyte Esterase Urine Negative (Negative); Nitrate Urine Negative (Negative); Protein Urine Neg (Negative); Specific Gravity, Urine 1.015 (1.005-1.030); Urine Appearance Clear (CLEAR); Urine Color Amber (Yellow); Urobilinogen Urine Norm (Negative); pH Urine 6 (5-7)
--- NOTE | 2020-10-09 16:46 | P.HP_ITS ---
Providers/Chief Complaint Primary Care Provider: Linwood Ocasio DO Chief Complaint: LEAKING AROUND STOMA/SURGERY 1 WEEK AGO History of Present Illness Bogdan Vernon is a 50 year old male who had presented to the ER on 09/30/2020 with perforated sigmoid diverticulitis which was managed with sigmoid colectomy and colostomy. Patient was discharged home on 10/06/2020 the next day patient had an episode of heavy coughing and 'he felt that he ripped his insides'. Subsequently he noticed stool within the midline wound. Patient denies any fevers or chills and is tender around the incision but otherwise denies any significant abdominal pain. No nausea or vomiting. Review of Systems General: Reports: 10 or more systems reviewed and unremarkable except in HPI and below Medications/Allergies Home Medications Medication Instructions Recorded Confirmed Last Taken Type ibuprofen 200 mg capsule 800 mg PO Q6H PRN 04/29/20 10/09/20 10/09/20 History timolol maleate 0.25 % eye drops 1 drop OPHTHALMIC (EYE) DAILY@0600 04/29/20 10/09/20 10/09/20 History indomethacin 50 mg capsule 50 mg PO TID@0600,1200,1800 09/03/20 10/09/20 Unknown History latanoprost 0.005 % eye drops 1 drp OPHTHALMIC (EYE) DAILY@0600 09/03/20 10/09/20 10/09/20 History lisinopril 20 mg tablet 20 mg PO DAILY@2100 09/03/20 10/09/20 10/08/20 History hydrocodone 5 mg-acetaminophen 325 1 tab PO DAILY PRN 7 Days #7 tab 09/11/20 10/09/20 10/09/20 Rx mg tablet allopurinol 100 mg PO DAILY@0600 09/30/20 10/09/20 09/28/20 History colchicine 0.6 mg PO DAILY PRN 09/30/20 10/09/20 Unknown History metronidazole [Flagyl] 500 mg PO Q8H 5 Days #15 tab 10/06/20 10/09/20 10/09/20 Rx cholecalciferol (vitamin D3) 50,000 unit PO Q7D 10/09/20 10/09/20 Unknown History gabapentin 600 mg PO TID@0600,1200,1800 10/09/20 10/09/20 10/09/20 History lactulose 15 ml PO BID@0600,1800 10/09/20 10/09/20 10/09/20 History levofloxacin 750 mg PO DAILY@0600 10/09/20 10/09/20 10/09/20 History Allergies Allergy/AdvReac Type Severity Reaction Status Date / Time adhesive tape Allergy ALGY-Bliste Verified 10/09/20 15:01 r latex Allergy rips skin Verified 10/09/20 15:01 PFSH Acute PFSH: Medical History (Updated 10/09/20 @ 16:50 by Dontrell Salas MD) Arthritis of facet joint of lumbar spine Chronic low back pain Gout HTN (hypertension), benign Surgical History (Updated 10/01/20 @ 15:32 by Dontrell Salas MD) H/O knee surgery Hx of inguinal hernia surgery S/P laparoscopic-assisted sigmoidectomy (09/30/20) with colostomy Family History Father Spondylosis Aorta aneurysm Mother Cancer Depression Social History Smoking and tobacco status: former smoker Alcohol intake: current Alcohol intake frequency: holidays/special occasions only Alcohol type: beer History of recent travel: No Vitals/I&O/Wt Last Vital Signs Temp 97.9 F 10/09/20 14:57 Pulse 107 H 10/09/20 15:24 Resp 18 10/09/20 15:59 BP 126/91 10/09/20 15:01 Pulse Ox 95 10/09/20 15:24 10/09/20 10/09/20 10/09/20 06:59 14:59 22:59 Intake Total 50 / 50 Balance 50 / 50 Weight last 48 hrs Weight 245 lb Physical Exam Narrative: EXAM NARRATIVE: HEENT: Normocephalic Eye: Sclera /conjunctiva normal Respiratory and chest: Bilateral clear breath sounds on auscultation Cardiovascular: Normal S1 and S2 heart sounds Abdomen: Soft to palpation, stool within the midline incision, necrosis of ostomy LLQ Neurological: Oriented to place person and time Skin: Intact, no lesions appreciated on gross exam Data : 10/09/20 15:35 10/09/20 15:35 A&P Assessment and plan (1) Colostomy complication: 50-year-old male status post sigmoid colectomy with colostomy on 09/30/2020 now presents with pain around the incision as well as stool within the laparotomy wound. Patient is currently hemodynamically stable, afebrile, his white count is up to 14.2. Plan for CT abdomen pelvis with p.o. and IV contrast IV fluids Plan for exploratory laparotomy, possible colon resection, revision of colostomy Procedure, risks, benefits and alternatives have been discussed with the patient who wishes to proceed with surgery. Status: Acute Attestations Medical Necessity Statement*: Necrosis of colostomy requiring revision and inpatient stay Coding Level of Care Code Acute Juice Tester for [facility] Diagnoses Colostomy complication K94.00
[2020-10-09] MEDS: iohexol 300 mg/mL 50 mL Btl PO (17:44)
[2020-10-09] MEDS: iohexol 300 mg/mL 100 mL Btl IV (17:47)
--- NOTE | 2020-10-09 18:46 | P.ANESASSM_ITS ---
Pre-Anesthetic Assessment Pre-Anesthetic Assessment: Height/Weight: Height 1.78 m Weight 111.13 kg Temp Pulse Resp BP Pulse Ox 98.9 F 92 20 H 144/73 94 10/09/20 18:01 10/09/20 18:01 10/09/20 18:01 10/09/20 18:01 10/09/20 18:01 Preop Diagnosis: perforated sigmoid diverticulitis with intraperitoneal free air Proposed Procedure: Operation Date: 10/09/20 18:30 Proposed Procedures p Laparoscopy(Not Applicable) - Dontrell Salas MD Was Beta Ana taken within 24 hours: N/A Last intake: Intake Last Liquid Date 10/08/20 Last Solid Date 10/08/20 Social: Social History: No alcohol and No tobacco Comment: h/o smoking Exam: Pre-Anes Outpt Exam: alert, oriented x 3, clear to auscultation bilaterally and regular rate & rhythm Airway: Submandibular: WNL Cervical ROM: WNL MP: 2 Dentition: Full Pulmonary: Pulmonary: COPD and Cough CV/HEM: CV/HEM: HTN GI: Comments: s/p ruptured diverticuli, now wound dehiscence? with stool in wound Metabolic: Metabolic: Morbid obesity Musc/skel: Musc/skel: OA/DJD Comments: Gout Anesthetic Plan: ASA status: 3E Anesthesia: General Risk of > 500 ml blood loss (7ml/kg in children): No PFSH Anesthesia PFSH: Medical History (Updated 10/09/20 @ 16:50 by Dontrell Salas MD) Arthritis of facet joint of lumbar spine Chronic low back pain Gout HTN (hypertension), benign Surgical History (Updated 10/01/20 @ 15:32 by Dontrell Salas MD) H/O knee surgery Hx of inguinal hernia surgery S/P laparoscopic-assisted sigmoidectomy (09/30/20) with colostomy Family History Father Spondylosis Aorta aneurysm Mother Cancer Depression Social History Smoking and tobacco status: former smoker Alcohol intake: current Alcohol intake frequency: holidays/special occasions only Alcohol type: beer History of recent travel: No Data Anesthesia CBC & Chem 7: 10/09/20 15:35 10/09/20 15:35 Other Labs: Laboratory Results - last 48 hr 10/09/20 10/09/20 10/09/20 15:35 15:35 15:35 WBC 14.2 H RBC 4.34 Hgb 12.8 Hct 39.1 L MCV 90.1 MCH 29.5 MCHC 32.7 RDW 12.0 L Plt Count 445 H MPV 10.3 Neut % (Auto) 84.6 Lymph % (Auto) 8.3 [place] % (Auto) 5.4 Eos % (Auto) 0.7 Baso % (Auto) 0.4 Neut # (Auto) 11.97 H Lymph # (Auto) 1.2 [place] # (Auto) 0.8 Eos # (Auto) 0.1 Baso # (Auto) 0.1 Nucleated RBC % (auto) 0 Nucleated RBCs # 0.0 Sodium 137 Potassium 4.1 Chloride 103 Carbon Dioxide 25 Anion Gap 13.1 BUN 12 Creatinine 0.8 GFR Calculation 102.7 Glucose 117 H Calculated Osmolality 285 Lactate 1.0 Calcium 9.0 Total Bilirubin 0.4 AST 19 ALT 30 Alkaline Phosphatase 150 H Total Protein 6.9 Albumin 3.0 L Globulin 3.9 Lipase 143 H Urine Color Urine Appearance Urine pH Ur Specific [place] Urine Protein Urine Glucose (UA) Urine Ketones Urine Blood Urine Nitrate Urine Bilirubin Urine Urobilinogen Ur Leukocyte Esterase 10/09/20 16:24 WBC RBC Hgb Hct MCV MCH MCHC RDW Plt Count MPV Neut % (Auto) Lymph % (Auto) [place] % (Auto) Eos % (Auto) Baso % (Auto) Neut # (Auto) Lymph # (Auto) [place] # (Auto) Eos # (Auto) Baso # (Auto) Nucleated RBC % (auto) Nucleated RBCs # Sodium Potassium Chloride Carbon Dioxide Anion Gap BUN Creatinine GFR Calculation Glucose Calculated Osmolality Lactate Calcium Total Bilirubin AST ALT Alkaline Phosphatase Total Protein Albumin Globulin Lipase Urine Color Crystal Urine Appearance Clear Urine pH 6 Ur Specific [place] 1.015 Urine Protein Neg Urine Glucose (UA) Norm Urine Ketones Negative Urine Blood Neg Urine Nitrate Negative Urine Bilirubin Neg Urine Urobilinogen Norm Ur Leukocyte Esterase Negative Cardiac Studies: No Data to Display
[2020-10-09] MEDS: fentaNYL 50 mcg/mL INJ 2mL 100 MCG IVP (19:59)
[2020-10-09] MEDS: midazolam 1 mg/mL INJ 2 mL 2 MG IVP (20:00)
--- NOTE | 2020-10-09 21:19 | SUR.OPER ---
2024 updated of surgical status 2109 attempted to update of surgical status via cellphone 2119 attempted to update of surgical status via cellphone
--- NOTE | 2020-10-09 22:06 | PM.OP ---
Operative Report Date of procedure: October 09, 2020 Pre-op Diagnosis: Necrosis of colostomy Pre-op Diagnosis: Status post sigmoid colectomy for perforated diverticulitis Post-op Diagnosis: Necrosis of the colon within the abdominal wall at the colostomy site No intraperitoneal contamination, necrosis or perforation Procedure Done: Exploratory laparotomy Partial colectomy Revision of colostomy Specimens removed/disposition: Segment of descending colon Surgeon: Dontrell Salas Anesthesia: General Condition: stable Disposition: PACU Brief History: This is a 50-year-old male who had undergone sigmoid colectomy with end colostomy on 09/30/2020. Patient had venous congestion of the colostomy but his ostomy was functioning well and he was discharged on 10/06/2020. On 10/07/2020 patient had a severe coughing and subsequently noticed stool within the wound which he initially thought was secondary to leakage of the colostomy bag. This persisted for the next couple of days and therefore they presented to the ER today. In the ER patient is noted to have necrosis of the colostomy and therefore decision was made to take the patient to operating room for revision of colostomy. Procedure: The patient was taken to the operating room and intubated under general anesthesia after IV antibiotic had been administered. A Harmon catheter was placed and the abdomen was prepped and draped in a sterile manner. The midline laparotomy incision was opened, #1 loop PDS sutures were divided and removed and the peritoneal cavity was entered. The incision was extended superiorly and inferiorly to get better access. The necrotic colon within the abdominal wall at the colostomy site was excised and sent to pathology. The thickened descending colon within the peritoneal cavity was identified, adhesions were taken down. There was induration at the the distal portion of the colon and 5 cm segment of the descending colon excised using electrocautery. Decision was made to create a new colostomy site due to significant contamination and necrotic tissue within the colostomy site. A 3 cm diameter circular incision was made in the skin using electrocautery in the left upper quadrant, subcutaneous tissue was excised and a cruciate incision was made in the anterior rectus sheath, rectus abdominis muscle was retracted bluntly and a 2 fingerbreadth opening was made in the posterior rectus sheath and the descending colon was exteriorized through the new colostomy site. 20 cc of saline mixed with 20 cc of 0.5% Marcaine mixed with 20 cc of Exparel was injected around the incisions. The posterior and anterior rectus sheath at the original colostomy site was closed using 0 Vicryl sutures. The fascia in the midline was closed using #1 looped PDS. Interrupted 3-0 Vicryl sutures were placed to approximate the serosa of the descending colon to the anterior rectus sheath within the colostomy site. 4-0 Vicryl interrupted sutures were placed to approximate the mucosa to the edge of the skin to create an end colostomy in a standard fashion. Skin was loosely approximated with agnieszka alternating with half-inch ribbon gauze weeks. Colostomy appliance was placed and the patient was extubated and transferred to recovery room with a Harmon catheter in place.
[2020-10-09] MEDS: fentaNYL 50 mcg/mL INJ 2mL IVP (22:19)
[2020-10-09] MEDS: HYDROmorphone 1 mg/mL INJ 1 mL 0.5 MG IVP (22:35)
[2020-10-09] MEDS: D5-NS 0.45% + KCL 20 mEq 20 MEQ/1,000 ML BAG 100 MEQ IV (23:59)
[2020-10-10] VITALS (16 sets, daily range): BP systolic 109–139; BP diastolic 76–95; PULSE 99–109; RESP 16–18; TEMP 36.4–37.1; O2SAT 93–97
[2020-10-10] MEDS: ondansetron 2 mg/ML SDV 2 mL 4 MG IVP ×5 (00:03→19:27)
[2020-10-10] MEDS: metroNIDAZOLE 500 MG Tablet PO ×3 (00:07→15:04)
[2020-10-10] MEDS: ketorolac 30 mg/mL INJ 15 MG IVP ×5 (00:08→23:09)
[2020-10-10] MEDS: famotidine 20 mg/2 mL INJ IVP ×3 (00:08→23:09)
[2020-10-10] MEDS: piperacillin-tazobactam 3.375 GM in sodium chloride 0.9% (plus) 50 ML IV ×4 (00:40→23:40)
[2020-10-10 03:13] LABS: Basophils # 0.1 10^3/uL (0.0-0.1); Basophils % 0.4 %; Eosinophils % 0.1 %; Hematocrit 36.9 % (42.0-52.0); Hemoglobin 11.8 g/dL (11.7-16.6); Lymphocytes # 0.8 10^3/uL (0.8-4.8); Lymphocytes % 5.2 %; Mean Corpuscular Hemoglobin 29.9 pg (28.0-34.0); Mean Corpuscular Volume 93.7 fL (80-94); Mean Platelet Volume 10.5 fL (7.4-10.4); Monocytes # 0.7 10^3/uL (0.2-0.9); Monocytes % 4.6 %; Neutrophils # 13.11 10^3/uL (1.8-7.7); Neutrophils % 89.2 %; Nucleated Red Blood Cells % 0 %; Platelet Count 445 10^3/cmm (130-400); Red Blood Count 3.94 10^6/uL (4.1-5.3); Red Cell Distribution Width 12.2 % (12.1-15.1); White Blood Count 14.7 10^3/uL (4.0-10.0)
[2020-10-10 03:14] LABS: Anion Gap 10.4 (5-19); Blood Urea Nitrogen 11 mg/dL (6-20); Calcium 7.8 mg/dL (8.5-10.5); Carbon Dioxide 25 mmol/L (22-29); Chloride 105 mmol/L (98-107); Glomerular Filtration Rate 102.7 mL/min (90-130); Glucose 175 mg/dL (65-115); Osmolality Calculated 286 mOsm/kg (285-295); Potassium 4.4 mmol/L (3.5-5.1); Sodium 136 mmol/L (136-145)
[2020-10-10] MEDS: morphine 4 mg/mL SDV 1 mL IVP ×5 (04:34→19:27)
[2020-10-10] MEDS: gabapentin 300 mg Capsule 600 MG PO ×3 (05:55→17:11)
[2020-10-10] MEDS: lactulose oral liq 20 gm/30 mL UDC 15 GM PO ×2 (05:56→17:11)
[2020-10-10] MEDS: sennosides-docusate Tablet 1 TAB PO ×2 (08:15→17:11)
[2020-10-10] MEDS: oxyCODONE-APAP 5-325 mg Tablet 1 TAB PO ×2 (09:56→23:21)
[2020-10-10] MEDS: D5-NS 0.45% + KCL 20 mEq 20 MEQ/1,000 ML BAG 100 MEQ IV ×3 (09:56→23:40)
--- NOTE | 2020-10-10 11:00 | PC.NURSE ---
Harmon Catheter removed at his time. Patient tolerated well. Patient had 250 mls of urine in the bag. Catheter removed intact
--- NOTE | 2020-10-10 11:19 | PC.CHAP ---
Pastoral Care Encounter/Spiritual Assessment Type of Contact [] Declined audio visual secretary visit [] Patient/Family/Request visit [] Outpatient visit [] Follow-up visit [] Physician referral [] Code/Alert [xx] Routine visit [] Staff referral [] Actively dying [] Patient sleeping [] Family support [] [] Out of room [] Palliative care [] [] Receiving care in room [] Pre-surgical visit [] Trauma [] Long length of stay [] ICU visit [] Other: Relational/Emotional Strength [xx] Patient feels connected with others/family/visitors/staff [] Distress [] Loneliness/isolation [] Abandonment Spirituality of Patient [xx] Person of Aviva [] Attends Sikhism of their Aviva [xx] Believes in Prayer [xx] Reads Bible or Roman Catholic materials [] There are Spiritual issues to be addressed Sub Prior Interventions [xx] Prayer [xx] Active listening [xx] Non-anxious presence [] Spiritual/emotional support [] Crisis/trauma care [] Spiritual counseling [] Bereavement support [] Provided bereavement packet [xx] Provided Bible/devotional materials [] Provided toy/stuffed animal, coloring book to patient or family member [] Provided Communion [] Anointing/[place] [] Salvation [] Completed spiritual assessment [] Other: Impact on Illness or Injury [] Angry [] Fearful [] Anxious [] Often cries [] Exhaustion [] Unable to work [] Unable to attend sikhism [] Unable to walk/stand [] Unable to read [] Unable to drive [] Unable to eat/drink [] Unable to sleep [] Unable to be with family [] Patient intubated [] Other: Summary Patient stated he was uncomfortable physically but is not in pain at present. [employer] devotional offered and accepted by pa5 Time spent with patient 5 minutes
--- NOTE | 2020-10-10 13:55 | ANE.PACU2 ---
Inpatient post-anesthesia follow up: Airway intact: Yes Vital signs: Temperature 97.9 F Pulse Rate [Monito r] 105 Pulse Rate 108 Respiratory Rate 17 Blood Pressure [Le ft Arm] 132/84 Blood Pressure 114/80 Pulse Oximetry 96 Oxygen Delivery Me thod Nasal Cannula Oxygen Flow Rate 2 Fraction of Inspir ed Oxygen Hydration adequate: Yes Nausea and vomiting: No Pain level: 4 Mental status: Baseline
[2020-10-10] MEDS: enoxaparin 40 mg/0.4 mL Syringe SUBCUT (17:11)
--- NOTE | 2020-10-10 17:54 | PM.PN ---
Subjective Subjective: Interval history: Patient has been doing well, denies any nausea or vomiting, no significant output from the ostomy Vitals/I&O/Wt Last Vital Signs Temp 97.7 F 10/10/20 15:37 Pulse 104 H 10/10/20 15:37 Resp 18 10/10/20 15:37 BP 123/83 10/10/20 15:37 Pulse Ox 93 10/10/20 15:37 10/10/20 10/10/20 10/10/20 06:59 14:59 22:59 Intake Total 50 / 1600 1405 / 1405 Output Total 950 / 950 Balance 50 / 1150 455 / 455 Weight last 48 hrs Weight 245 lb Physical Exam Narrative: EXAM NARRATIVE: Abdomen: Soft, distended, normally tender, wound packed, ostomy pink and viable, no significant output Urinary Catheter Management^: Harmon Latex Free: Cath Placed During This Visit: yes Urinary Catheter Date of Insertion: 10/09/20 Urinary Catheter Time of Insertion: 20:05 Data : 10/10/20 02:22 10/10/20 02:22 A&P Assessment and plan (1) H/O exploratory laparotomy: Ostomy: [place], no significant output Start clear liquid diet DC Harmon Ambulate with physical therapy Lovenox for DVT prophylaxis Pepcid for GI prophylaxis Home health for ostomy and wound care Continue IV fluids Status: Acute (2) Hypertension: Stable Status: Acute (3) Gout: Stable Status: Acute (4) Depression: Start sertraline 25 mg p.o. daily Status: Acute Attestations Medical Necessity Statement*: Patient will need greater than 2 nights of inpatient stay to ensure resolution of leukocytosis as well as rule out postop complications Coding Level of Care Code Acute Seo Coordinator for Jb Morales Diagnoses H/O exploratory laparotomy Z98.890 Hypertension I10 Gout M10.9 Depression F32.9
--- NOTE | 2020-10-10 19:21 | PC.NURSE ---
Dr. Salas order TID dressing change of ABD pads only and as needed if they drain through to be held by patient's Abdominal binder as he is allergic to tape. Patient is able to have the abdominal binder off while he is in bed but needs to have it on while walking.
--- NOTE | 2020-10-10 19:24 | PC.NURSE ---
Report to Alejandra Zamora LPN.
[2020-10-11] VITALS (8 sets, daily range): BP systolic 109–129; BP diastolic 76–86; PULSE 92–106; RESP 12–20; TEMP 36.7–37.1; O2SAT 91–96
[2020-10-11] MEDS: morphine 4 mg/mL SDV 1 mL IVP (02:38)
[2020-10-11] MEDS: oxyCODONE-APAP 5-325 mg Tablet 1 TAB PO ×4 (05:57→21:00)
[2020-10-11] MEDS: lactulose oral liq 20 gm/30 mL UDC 15 GM PO (05:57)
[2020-10-11] MEDS: ketorolac 30 mg/mL INJ 15 MG IVP (05:57)
[2020-10-11] MEDS: gabapentin 300 mg Capsule 600 MG PO ×3 (05:59→17:04)
[2020-10-11 06:12] LABS: Basophils % 0.3 %; Eosinophils # 0.2 10^3/uL (0.0-0.8); Eosinophils % 1.8 %; Hematocrit 32.9 % (42.0-52.0); Hemoglobin 10.3 g/dL (11.7-16.6); Lymphocytes # 1.5 10^3/uL (0.8-4.8); Lymphocytes % 16.1 %; Mean Corpuscular HGB Conc 31.3 g/dL (30.0-36.0); Mean Corpuscular Hemoglobin 29.5 pg (28.0-34.0); Mean Corpuscular Volume 94.3 fL (80-94); Mean Platelet Volume 10.1 fL (7.4-10.4); Monocytes % 11.2 %; Neutrophils # 6.27 10^3/uL (1.8-7.7); Neutrophils % 69.8 %; Nucleated Red Blood Cells % 0 %; Platelet Count 419 10^3/cmm (130-400); Red Blood Count 3.49 10^6/uL (4.1-5.3); Red Cell Distribution Width 12.3 % (12.1-15.1)
[2020-10-11 06:33] LABS: Anion Gap 9.1 (5-19); Blood Urea Nitrogen 7 mg/dL (6-20); Calcium 7.9 mg/dL (8.5-10.5); Carbon Dioxide 25 mmol/L (22-29); Chloride 104 mmol/L (98-107); Glomerular Filtration Rate 89.7 mL/min (90-130); Glucose 110 mg/dL (65-115); Osmolality Calculated 277 mOsm/kg (285-295); Potassium 4.1 mmol/L (3.5-5.1); Sodium 134 mmol/L (136-145)
[2020-10-11] MEDS: piperacillin-tazobactam 3.375 GM in sodium chloride 0.9% (plus) 50 ML IV ×3 (08:44→23:30)
[2020-10-11] MEDS: sennosides-docusate Tablet 1 TAB PO ×2 (08:44→17:04)
[2020-10-11] MEDS: sertraline 50 mg Tablet 25 MG PO (08:44)
[2020-10-11] MEDS: famotidine 20 mg Tablet PO ×2 (08:50→17:04)
--- NOTE | 2020-10-11 11:20 | PM.PN ---
Subjective Subjective: Interval history: Patient denies any nausea or vomiting, tolerating clear liquid diet, ostomy is functioning Vitals/I&O/Wt Last Vital Signs Temp 98.1 F 10/11/20 04:00 Pulse 92 10/11/20 04:00 Resp 16 10/11/20 08:44 BP 109/76 10/11/20 04:00 Pulse Ox 96 10/11/20 04:00 10/10/20 10/11/20 10/11/20 22:59 06:59 14:59 Intake Total 1410 / 3628.333 813.333 / 3628.333 Output Total 400 / 2450 700 / 2450 Balance 1010 / 1178.333 113.333 / 1178.333 Weight last 48 hrs Weight 245 lb Physical Exam Narrative: EXAM NARRATIVE: Abdomen: Soft, minimally tender, incisions packed, ostomy functioning Urinary Catheter Management^: Harmon Latex Free: Cath Placed During This Visit: yes Urinary Catheter Date of Insertion: 10/09/20 Urinary Catheter Time of Insertion: 20:05 Data : 10/11/20 05:35 10/11/20 05:35 A&P Assessment and plan (1) H/O exploratory laparotomy: Ostomy: Functioning Packing in the wound partially removed Advance to full liquid diet Ambulate with physical therapy Lovenox for DVT prophylaxis Pepcid for GI prophylaxis Home health for ostomy and wound care DC IV fluids Status: Acute (2) Hypertension: Stable Status: Acute (3) Gout: Stable Status: Acute (4) Depression: sertraline 25 mg p.o. 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
[2020-10-11] MEDS: enoxaparin 40 mg/0.4 mL Syringe SUBCUT (17:03)
[2020-10-12] VITALS (7 sets, daily range): BP systolic 120–130; BP diastolic 79–85; PULSE 18–109; RESP 12–99; TEMP 36.6–37.2; O2SAT 89–94
[2020-10-12 04:44] LABS: Basophils % 0.2 %; Eosinophils # 0.1 10^3/uL (0.0-0.8); Eosinophils % 1.5 %; Hematocrit 31.6 % (42.0-52.0); Lymphocytes # 1.4 10^3/uL (0.8-4.8); Lymphocytes % 17.7 %; Mean Corpuscular HGB Conc 31.6 g/dL (30.0-36.0); Mean Corpuscular Hemoglobin 29.8 pg (28.0-34.0); Mean Platelet Volume 9.9 fL (7.4-10.4); Monocytes # 0.8 10^3/uL (0.2-0.9); Monocytes % 10.5 %; Neutrophils # 5.56 10^3/uL (1.8-7.7); Neutrophils % 69.2 %; Nucleated Red Blood Cells % 0 %; Platelet Count 415 10^3/cmm (130-400); Red Blood Count 3.36 10^6/uL (4.1-5.3); Red Cell Distribution Width 12.1 % (12.1-15.1)
[2020-10-12 05:13] LABS: Anion Gap 10.1 (5-19); Blood Urea Nitrogen 9 mg/dL (6-20); Calcium 8.3 mg/dL (8.5-10.5); Carbon Dioxide 28 mmol/L (22-29); Chloride 103 mmol/L (98-107); Glomerular Filtration Rate 79.4 mL/min (90-130); Glucose 105 mg/dL (65-115); Osmolality Calculated 283 mOsm/kg (285-295); Potassium 4.1 mmol/L (3.5-5.1); Sodium 137 mmol/L (136-145)
[2020-10-12] MEDS: gabapentin 300 mg Capsule 600 MG PO (05:15)
[2020-10-12] MEDS: oxyCODONE-APAP 5-325 mg Tablet 1 TAB PO (05:19)
--- NOTE | 2020-10-12 08:54 | PM.PN ---
Subjective Subjective: Interval history: She states pain is well controlled, walk 4 times yesterday, ostomy is functioning, tolerating GI soft diet Vitals/I&O/Wt Last Vital Signs Temp 97.9 F 10/12/20 07:41 Pulse 18 L 10/12/20 07:41 Resp 99 H 10/12/20 07:41 BP 120/80 10/12/20 07:41 Pulse Ox 94 10/12/20 07:41 10/11/20 10/12/20 10/12/20 22:59 06:59 14:59 Intake Total 250 / 880 480 / 480 Output Total 800 / 1550 600 / 600 Balance -550 / -670 -120 / -120 Physical Exam Narrative: EXAM NARRATIVE: Abdomen: Soft, nondistended minimally tender, packing from the incision removed, ostomy pink and functioning Urinary Catheter Management^: Harmon Latex Free: Cath Placed During This Visit: yes Urinary Catheter Date of Insertion: 10/09/20 Urinary Catheter Time of Insertion: 20:05 Data : 10/12/20 04:00 10/12/20 04:00 A&P Assessment and plan (1) H/O exploratory laparotomy: Ostomy: Functioning, overall doing well DC home today Instructions on wound care given Status: Acute (2) Hypertension: Stable Status: Acute (3) Gout: Stable Status: Acute (4) Depression: sertraline 25 mg p.o. 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
--- NOTE | 2020-10-12 08:55 | PM.DCS ---
Discharge Providers Date of Admission: 10/09/20 21:52 Date of Discharge: October 12, 2020 Attending Provider at Admission: Dontrell Salas MD Attending Provider at Discharge: Dontrell Salas MD Primary Care Provider: Linwood Ocasio DO Diagnoses at Discharge Discharge Diagnosis (1) H/O exploratory laparotomy: Status: Acute Permanent problem details: With revision of colostomy (2) Hypertension: Status: Acute (3) Gout: Status: Acute (4) Depression: Status: Acute Reason for Visit Reason for Visit: LEAKING AROUND STOMA/SURGERY 1 WEEK AGO Hospital Course Hospital Course This is a 50-year-old male who had undergone sigmoid colectomy for perforated sigmoid diverticulitis on 09/30/2020 and was discharged home on 10/06/2020. Apparently patient started having drainage of stool through the midline incision on 10/07/2019 when presented to the ER on 10/09/2020. Patient developed necrosis of the ostomy and was therefore taken to the operating room where he underwent exploratory laparotomy, partial colectomy and revision of colostomy. By day 1 his ostomy has started functioning and his diet is slowly advanced. He was discharged on day 3 and at time of discharge he was tolerating a regular diet, his ostomy was pink and functioning, his incisions were being packed. His vital signs were stable and his leukocytosis had resolved. Physical Exam Urinary Catheter Management^: Harmon Latex Free: Cath Placed During This Visit: yes Urinary Catheter Date of Insertion: 10/09/20 Urinary Catheter Time of Insertion: 20:05 Discharge Data Data Completed and Pending: Completed Studies During Hospitalization Category Date Time Status CT abdomen pelvis w con* [id number] Urge nt Cat Scan 10/09/20 15:29 Completed Labs from last 24 hours 10/12/20 10/12/20 04:00 04:00 WBC 8.0 RBC 3.36 L Hgb 10.0 L Hct 31.6 L MCV 94.0 MCH 29.8 MCHC 31.6 RDW 12.1 Plt Count 415 H MPV 9.9 Neut % (Auto) 69.2 Lymph % (Auto) 17.7 [place] % (Auto) 10.5 Eos % (Auto) 1.5 Baso % (Auto) 0.2 Neut # (Auto) 5.56 Lymph # (Auto) 1.4 [place] # (Auto) 0.8 Eos # (Auto) 0.1 Baso # (Auto) 0.0 Nucleated RBC % (a uto) 0 Nucleated RBCs # 0.0 Sodium 137 Potassium 4.1 Chloride 103 Carbon Dioxide 28 Anion Gap 10.1 BUN 9 Creatinine 1.0 GFR Calculation 79.4 L Glucose 105 Calculated Osmolal ity 283 L Calcium 8.3 L Vitals: Last Vital Signs Temp 97.9 F 10/12/20 07:41 Pulse 18 L 10/12/20 07:41 Resp 99 H 10/12/20 07:41 BP 120/80 10/12/20 07:41 Pulse Ox 94 10/12/20 07:41 Discharge Plan Discharge Patient Disposition: Home Condition: Stable Prescriptions: New [place] 5-325 mg tablet 1 tab PO Q6H 7 Days Qty: 20 RF: 0 lactulose 10 gram/15 mL solution 15 ml PO BID Qty: 237 RF: 2 levofloxacin 750 mg tablet 750 mg PO DAILY 7 Days RF: 0 metronidazole [Flagyl] 500 mg tablet 500 mg PO Q8H 7 Days Qty: 21 RF: 0 Continued timolol maleate 0.25 % drops 1 drop ophthalmic (eye) DAILY@0600 RF: 0 ibuprofen 200 mg capsule 800 mg PO Q6H PRN (Reason: Pain) RF: 0 hydrocodone-acetaminophen 5-325 mg tablet 1 tab PO DAILY PRN (Reason: pain) 7 Days Qty: 7 RF: 0 latanoprost 0.005 % drops 1 drp ophthalmic (eye) DAILY@0600 RF: 0 indomethacin 50 mg capsule 50 mg PO TID@0600,1200,1800 RF: 0 lisinopril 20 mg tablet 20 mg PO DAILY@2100 RF: 0 gabapentin 600 mg tablet 600 mg PO TID@0600,1200,1800 RF: 0 levofloxacin 750 mg tablet 750 mg PO DAILY@0600 RF: 0 lactulose 10 gram/15 mL solution 15 ml PO BID@0600,1800 RF: 0 cholecalciferol (vitamin D3) 1,250 mcg (50,000 unit) capsule 50,000 unit PO Q7D RF: 0 allopurinol 100 mg tablet 100 mg PO DAILY@0600 RF: 0 colchicine 0.6 mg tablet 0.6 mg PO DAILY PRN (Reason: unknown) RF: 0 metronidazole [Flagyl] 500 mg tablet 500 mg PO Q8H 5 Days Qty: 15 RF: 0 Discharge Orders: Discharge Order (Routine); Ordered 10/12/20 Ordered By: Dontrell Salas [facility]Other] Linwood Ocasio DO [Primary Care Provider] - Dontrell Salas MD [Physician] - 10/21/20 (call clinic tomorrow to get a appointment time) Discharge Diet: Advance as tolerated Discharge Activity: Resume usual activity Activity Restrictions/Additional Instructions: Okay to shower Irrigate wound with saline and pack wound with quarter inch ribbon once daily and covered with ABDs. Replace ABD as needed during the day if there is excessive drainage to prevent skin breakdown Do not lift more than 10 pounds Transition to Tylenol from [place] once pain starts getting better Advised to contact the office or come to the ER if you start developing worsening pain, nausea, vomiting, fevers or chills. Discharge Attestations Time Spent in Discharge Care*: greater than 30 min Quality Metrics Clinical Quality Measures During this hospital stay, did patient experience: None Coding Level of Care Code Acute Campground Attendant for Chg Fwd Diagnoses H/O exploratory laparotomy Z98.890 Hypertension I10 Gout M10.9 Depression F32.9
[2020-10-12] MEDS: morphine 4 mg/mL SDV 1 mL IVP (10:20)
[2020-10-12] MEDS: sertraline 50 mg Tablet 25 MG PO (10:20)
[2020-10-12] MEDS: famotidine 20 mg Tablet PO (10:20)
[2020-10-12] MEDS: sennosides-docusate Tablet 1 TAB PO (10:20)
--- NOTE | 2020-10-12 13:16 | PC.NURSE ---
Patient discharged in the care of his , in stable condition. Discharge instructions given to patient and , all questions answered. Extra wound care supplies and colostomy supplies given to patient.
== END 2020-10-12 11:30 | disposition home health service (06) | DRG 329 ==
LOC: ER 17:08 → OR 17:46 → MEDSURG 10-10 05:43
PROVIDERS: Physician Assistant; Admitting Provider Surgery; Emergency Provider Family Medicine; PCP Family Medicine; Visit Provider Surgery
PROC: 0DBM0ZZ Excision of Descending Colon, Open Approach (ICD-10-PCS; CPT 49000; principal; 2020-10-09 18:30)
PROC: 0DBM0ZZ Excision of Descending Colon, Open Approach (ICD-10-PCS; 2020-10-09 18:30)
DX: K94.09 Other complications of colostomy (principal); K55.049 Acute infarction of large intestine, extent unspecified; Y83.3 Surgical operation with formation of external stoma as the cause of abnormal reaction of the patient, or of later complication, without mention of misadventure at the time of the procedure; Y81.1 Therapeutic (nonsurgical) and rehabilitative general- and plastic-surgery devices associated with adverse incidents; Z90.49 Acquired absence of other specified parts of digestive tract; M47.816 Spondylosis without myelopathy or radiculopathy, lumbar region; G89.29 Other chronic pain; M10.9 Gout, unspecified; I10 Essential (primary) hypertension; Z87.891 Personal history of nicotine dependence; Z79.891 Long term (current) use of opiate analgesic; F32.9 Major depressive disorder, single episode, unspecified
CPT/HCPCS: 12345; 36415; 74177; 80048; 80053; 81003; 83605; 83690; 85025; 96365; 96372; 97161; 97530; 99282; C9290; J0131; J0330; J1170; J1650; J1885; J2250; J2270; J2405; J2543; J2704; J3010; J3490; Q9967

== ENCOUNTER → 2020-11-18 09:03 | Outpatient (BNVA) | payer OTHER, SELFPAY | PROVIDERS: PCP Family Medicine; Visit Provider Internal Medicine | DX: M1A.0790 Idiopathic chronic gout, unspecified ankle and foot, without tophus (tophi) (principal); M25.50 Pain in unspecified joint; M54.9 Dorsalgia, unspecified; Z79.899 Other long term (current) drug therapy; Z87.891 Personal history of nicotine dependence | CPT/HCPCS: 99213; 99214 ==

== ENCOUNTER → 2020-12-18 10:11 | Outpatient (BNVA) | payer OTHER, SELFPAY | PROVIDERS: PCP Family Medicine; Visit Provider Surgery | DX: Z20.822 Contact with and (suspected) exposure to COVID-19 (principal); Z11.52 Encounter for screening for COVID-19 | CPT/HCPCS: 87635 ==

== ENCOUNTER 2020-12-23 08:34 | Day surgery (SDC) | payer OTHER, SELFPAY ==
[2020-12-19 12:50] VITALS: BMI 34.5
--- NOTE | 2020-12-23 08:51 | ANES.PREANE2 ---
Pre-Anesthetic Assessment Pre-Anesthetic Assessment: Height/Weight: Height 1.78 m Weight 109.316 kg Preop Diagnosis: Necrosis of colostomy Proposed Procedure: Operation Date: 12/23/20 10:30 Proposed Procedures p Colonoscopy 32749 K57.80(Not Applicable) - Dontrell Salas MD Familial anesthetic complications: none Was Beta Ana taken within 24 hours: N/A Was Clonidine taken within 24 hours: N/A Last intake: > 8 hrs Social: Social History: Alcohol and No tobacco Comment: occassional Exam: Pre-Anes Outpt Exam: alert, oriented x 3, clear to auscultation bilaterally and regular rate & rhythm Airway: Cervical ROM: WNL MP: 3 Dentition: Full CV/HEM: CV/HEM: HTN Anesthetic Plan: ASA status: 2 Anesthesia: MAC Risk of > 500 ml blood loss (7ml/kg in children): No PFSH Anesthesia PFSH: Medical History (Updated 12/17/20 @ 08:25 by Dontrell Salas MD) Arthritis of facet joint of lumbar spine Chronic low back pain Colostomy necrosis Depression Gout HTN (hypertension), benign Insomnia Perforation of sigmoid colon due to diverticulitis Surgical History (Updated 12/17/20 @ 08:27 by Dontrell Salas MD) H/O exploratory laparotomy (10/09/20) With revision of colostomy H/O knee surgery Hx of inguinal hernia surgery S/P laparoscopic-assisted sigmoidectomy (09/30/20) with colostomy Family History Father Spondylosis Aorta aneurysm Mother Cancer Depression Social History Smoking and tobacco status: former smoker Alcohol intake: current Alcohol intake frequency: holidays/special occasions only Alcohol type: beer History of recent travel: No Data Anesthesia Cardiac Studies: No Data to Display
[2020-12-23 09:17] VITALS: BP 116/94; PULSE 87; RESP 18; TEMP 36.8; O2SAT 98
[2020-12-23] MEDS: sodium chloride 0.9% 1,000 ML 30 ML IV (10:09)
--- NOTE | 2020-12-23 10:18 | SUR.PREOP ---
enema done till clear. patient tolerated well.
--- NOTE | 2020-12-23 10:46 | W.PM.OPSUD ---
Surgery/Procedure H&P Update DATE OF PROCEDURE: December 23, 2020 DATE H&P PERFORMED: 12/16/20 H&P UPDATE INFORMATION: I have reviewed H&P completed within last 30 days, I have examined patient prior to procedure and No changes to prior documentation PREOP DIAGNOSIS: diagnostic PLANNED PROCEDURE: Operation Date: 12/23/20 10:30 Proposed Procedures p Colonoscopy 05416 K57.80(Not Applicable) - Dontrell Salas MD
[2020-12-23 11:18] VITALS: BP 104/67; PULSE 88; RESP 16; TEMP 36.2; O2SAT 93
[2020-12-23 11:33] VITALS: BP 128/89; PULSE 78; RESP 16; TEMP 36.6; O2SAT 97
--- NOTE | 2020-12-23 19:00 | ANE.PACU2 ---
Inpatient post-anesthesia follow up: Airway intact: Yes Vital signs: Temperature 97.9 F Pulse Rate 78 Respiratory Rate 16 Blood Pressure 128/89 Pulse Oximetry 97 Oxygen Delivery Me thod Room Air Oxygen Flow Rate Fraction of Inspir ed Oxygen Hydration adequate: Yes Nausea and vomiting: No Pain level: 2 Mental status: Baseline
== END 2020-12-23 11:55 | disposition home or self-care (01) ==
PROVIDERS: PCP Family Medicine; Visit Provider Surgery
PROC: 0DJD8ZZ Inspection of Lower Intestinal Tract, Via Natural or Artificial Opening Endoscopic (ICD-10-PCS; CPT 45378; principal; 2020-12-23 10:30)
DX: Z98.890 Other specified postprocedural states (principal); D12.4 Benign neoplasm of descending colon; Z90.49 Acquired absence of other specified parts of digestive tract; I10 Essential (primary) hypertension; Z87.891 Personal history of nicotine dependence
CPT/HCPCS: 44389; 45378; 88305; 96360; 96361; J2704; J7030

== ENCOUNTER 2020-12-24 15:25 | Inpatient (IN) | payer OTHER, SELFPAY ==
[2020-12-23 15:55] VITALS: BMI 34.5
[2020-12-24] VITALS (19 sets, daily range): BP systolic 127–147; BP diastolic 82–115; PULSE 77–95; RESP 16–24; TEMP 36.2–36.6; O2SAT 97–100
--- NOTE | 2020-12-24 08:50 | W.PM.OPSUD ---
Surgery/Procedure H&P Update DATE OF PROCEDURE: December 24, 2020 DATE H&P PERFORMED: 12/16/20 H&P UPDATE INFORMATION: I have reviewed H&P completed within last 30 days, I have examined patient prior to procedure and No changes to prior documentation PREOP DIAGNOSIS: diagnostic PLANNED PROCEDURE: Operation Date: 12/24/20 09:30 Proposed Procedures p Colostomy Reversal 50623 K57.80(Not Applicable) - Dontrell Salas MD
[2020-12-24] MEDS: sodium chloride 0.9% 1,000 ML 30 ML IV (09:30)
--- NOTE | 2020-12-24 09:39 | ANES.PREANE2 ---
Pre-Anesthetic Assessment Pre-Anesthetic Assessment: Height/Weight: Height 1.78 m Weight 109.316 kg Temp Pulse Resp BP Pulse Ox 97.2 F L 95 18 127/96 97 12/24/20 09:09 12/24/20 09:09 12/24/20 09:09 12/24/20 09:09 12/24/20 09:09 Preop Diagnosis: Colostomy reversal Proposed Procedure: Operation Date: 12/24/20 09:30 Proposed Procedures p Colostomy Reversal 34396 K57.80(Not Applicable) - Dontrell Salas MD Familial anesthetic complications: none Was Beta Ana taken within 24 hours: N/A Was Clonidine taken within 24 hours: N/A Last intake: Intake Last Liquid Date 12/23/20 Last Liquid Time 22:00 Last Solid Date 12/21/20 Last Solid Time 18:00 Social: Social History: No alcohol and No tobacco Exam: Pre-Anes Outpt Exam: alert, oriented x 3, clear to auscultation bilaterally and regular rate & rhythm Airway: Cervical ROM: WNL MP: 3 Dentition: Full CV/HEM: CV/HEM: HTN Anesthetic Plan: ASA status: 2 Anesthesia: General Risk of > 500 ml blood loss (7ml/kg in children): No PFSH Anesthesia PFSH: Medical History (Updated 12/17/20 @ 08:25 by Dontrell Salas MD) Arthritis of facet joint of lumbar spine Chronic low back pain Colostomy necrosis Depression Gout HTN (hypertension), benign Insomnia Perforation of sigmoid colon due to diverticulitis Surgical History (Updated 12/23/20 @ 11:21 by Dontrell Salas MD) H/O exploratory laparotomy (10/09/20) With revision of colostomy H/O knee surgery Hx of inguinal hernia surgery S/P laparoscopic-assisted sigmoidectomy (09/30/20) with colostomy Status post colonoscopy with polypectomy (12/23/20) Family History Father Spondylosis Aorta aneurysm Mother Cancer Depression Social History Smoking and tobacco status: former smoker Alcohol intake: current Alcohol intake frequency: holidays/special occasions only Alcohol type: beer History of recent travel: No Data Anesthesia Cardiac Studies: No Data to Display
[2020-12-24] MEDS: ceFOXitin 2,000 MG in sodium chloride 0.9% (plus) 50 ML 100 MG IV ×2 (10:45→20:07)
--- NOTE | 2020-12-24 11:39 | PC.NURSE ---
1139 spoke with patient's Carlene to let her know we have started and everything is going well. Vinnie Ramirez RN
--- NOTE | 2020-12-24 12:32 | PC.NURSE ---
1233 Spoke with patient's Carlene and let her know we are still taking adhesions down but all is going well. Vinnie Ramirez RN
--- NOTE | 2020-12-24 13:42 | PC.NURSE ---
1342 spoke with patient's Carlene and let her know we are about to begin the anastomosis. vss, minimal blood loss. will call her in one hour with update or sooner if necessary. Vinnie Pepe RN
--- NOTE | 2020-12-24 14:39 | PC.NURSE ---
1439 spoke with patient's and gave her an update. domo sanchez
--- NOTE | 2020-12-24 15:27 | P.OP_ITS ---
Operative Report Date of procedure: December 24, 2020 Pre-op Diagnosis: 1. Status post hand-assisted laparoscopic sigmoid colectomy 09/30/2020 for perforated sigmoid diverticulitis and septic shock 2. Exploratory laparotomy with partial colectomy, revision of colostomy 10/09/2020 Post-op Findings: 1. Extensive adhesions from prior surgeries involving small bowel loops and colon adherent to the abdominal wall 2. 5 cm segment of distal sigmoid colon at the Humphreys's pouch Procedure Done: 1. Laparoscopic lysis of adhesions 75 minutes 2. Laparoscopic partial colectomy 3. Takedown of colostomy with 29 mm stapled EEA anastomosis 4. Laparoscopic takedown of splenic flexure 5. Proctoscopy Specimens removed/disposition: 1. Sigmoid colon remnant segment 2. Descending colostomy 3. Proximal anastomotic donuts 4. Distal anastomotic donut Surgeon: Dontrell Salas Anesthesia: General Estimated blood loss (mL): 50 IV fluids (mL): 2,000 Urine output (mL): 350 Condition: stable Disposition: PACU Procedure: The patient was taken to the operating room and intubated under general anesthesia after IV antibiotic had been administered. The patient was placed in modified Trendelenburg position. A Harmon catheter was placed and the abdomen was prepped and draped in a sterile manner. Using 15 blade with open Dorsey technique the peritoneal cavity was entered through the 10 mm incision in the right lower quadrant. A 12 mm port was placed and 15 mm of pneumoperitoneum was created. A 10 mm 30 degree scope was introduced and there was extensive adhesions of the abdominal wall extending from the xiphoid to the pelvis where multiple small bowel loops as well as transverse colon, omentum were adherent to the abdominal wall. 5 mm port was placed in the midclavicular line as well as anterior axillary line under direct visualization in the right upper quadrant and lysis of adhesions was performed for 75 minutes to take down the small bowel, transverse colon, omentum from the anterior abdominal wall and descending colon had been skeletonized. There were dense adhesions of the small bowel to the Humphreys's pouch as well as pelvic caceres which were again taken down using laparoscopic scissors. There was no enterotomies or serosal tears at the end of the lysis of adhesions and the small bowel had been mobilized from the ligament of Treitz to the cecum The anterior leaflet of the greater omentum was divided using energy device to enter the lesser sac and the greater omentum was divided up to the splenic flexure. Phrenocolic and splenocolic ligaments were taken down and the line of Toldt was mobilized medially along the descending colon until the splenic flexure had been completely mobilized. Using energy device the peritoneum around the distal sigmoid colon was mobilized and the remaining portion of the sigmoid colon was skeletonized up to the peritoneal reflection and a 45 mm [place] blue load ARTURO stapler x2 was fired to divide at the junction with the rectum. The specimen was retrieved using Endocatch bag. 20 cc of Exparel mixed with 20cc of saline mixed with 20cc of 0.5% Marcaine was infiltrated in the midclavicular line for a TAP block under laparoscopic visualization. The pneumoperitoneum was released and elliptical incision was made in the skin around the colostomy in the left upper quadrant. Using electrocautery the colostomy was dissected free from the surrounding subcutaneous tissue and rectus muscle and fascia. The descending colon was exteriorized and an Autosuture was placed around the healthy portion of the descending colon, the scarred portion of the descending colon was excised and sent to pathology. Serial dilators were passed and decision was made to proceed with a 29 mm EEA stapler. The anvil of the 29 mm stapler was introduced, the autosuture used to tie down the anvil in place. A GelPort was placed at the colostomy site and the pneumoperitoneum was recreated. Under laparoscopic visualization the rectum was serially dilated and a 29 mm EEA stapler was introduced and the trocar passed through the middle of the staple line and attached to the anvil and fired creating a 29 mm EEA anastomosis. A colonoscope was introduced and the anastomosis noted at about 17 cm. There is no evidence of bleeding at the anastomosis and air leak test was negative. Pneumoperitoneum was released and the fascia in the right lower quadrant was closed using [id number] 0 Vicryl suture. The posterior rectus sheath at the ostomy site was closed using running 0 Vicryl suture. The anterior rectus sheath was closed using figure of eight 0 Vicryl suture. The subcutaneous was approximated interrupted 3-0 Vicryl suture and skin was closed with agnieszka. Quarter inch ribbon ray were placed between the agnieszka at the ostomy site. Sterile dressings were applied and the patient was extubated and transferred to recovery room with a Harmon catheter in place.
[2020-12-24] MEDS: HYDROmorphone 1 mg/mL INJ 1 mL 0.5 MG IVP (15:51)
--- NOTE | 2020-12-24 15:57 | SUR.PHASEI ---
1545 PT AWAKES COUGHS WEAKLY A COUPLE OF TIMES PT INSTRUCTED TO HOLD ABD FOR SUPPORT , PT ON RA SATS DOWN TO 93% PT PLACED ON 3LNC GOOD RESP EFFORT PT MOANING AND ASKING FOR PAIN MEDS, ORDERS FROM LEILA WOODY TO CONTINUE TO DILAUDID FOR PAIN CONTROL , SEE MEDS GIVEN IN SURGERY.
--- NOTE | 2020-12-24 16:16 | SUR.PHASEI ---
PT SLEEPS IF NOT AWAKENED PT RATES PAIN (BAD) BUT UNABLE TO STAY AWAKE, RESP 16-18 SATS 100% ON 3LNC VSS WILL CALL REPORT , PT OUT OF PHASE 1 ABD LARGE SOFT WITH 4 SITE MID ABD SITE WITH SMALL AMT DRAINAGE MARKED. VSS.
[2020-12-24] MEDS: ondansetron 2 mg/ML SDV 2 mL 4 MG IVP (16:27)
--- NOTE | 2020-12-24 16:29 | SUR.PHASEI ---
0426 PT UNHOOKED AND READY FOR TRANSPORT AND FLOOR NURSE CALLED PT NOW C/O OF NAUSEA, SEE MED GIVEN
[2020-12-24] MEDS: morphine 4 mg/mL SDV 1 mL 3 MG IV ×2 (17:20→20:03)
[2020-12-24] MEDS: famotidine 20 mg/2 mL INJ IVP (17:20)
[2020-12-24] MEDS: D5-NS 0.45% + KCL 20 mEq 20 MEQ/1,000 ML BAG 100 MEQ IV (17:21)
--- NOTE | 2020-12-24 18:07 | ANE.PACU2 ---
Inpatient post-anesthesia follow up: Airway intact: Yes Vital signs: Temperature 97.9 F Pulse Rate 85 Respiratory Rate 16 Blood Pressure 131/82 Pulse Oximetry 98 Oxygen Delivery Me thod Nasal Cannula Oxygen Flow Rate 3 Fraction of Inspir ed Oxygen Hydration adequate: Yes Nausea and vomiting: No Pain level: 3 Mental status: Baseline
[2020-12-25] VITALS (12 sets, daily range): BP systolic 114–155; BP diastolic 71–95; PULSE 69–91; RESP 16–20; TEMP 36.5–36.9; O2SAT 94–99
[2020-12-25] MEDS: morphine 4 mg/mL SDV 1 mL 3 MG IV ×4 (00:53→20:13)
[2020-12-25 02:58] LABS: Basophils % 0.2 %; Hematocrit 39.9 % (42.0-52.0); Hemoglobin 13.2 g/dL (11.7-16.6); Lymphocytes # 0.8 10^3/uL (0.8-4.8); Lymphocytes % 7.6 %; Mean Corpuscular HGB Conc 33.1 g/dL (30.0-36.0); Mean Corpuscular Hemoglobin 29.3 pg (28.0-34.0); Mean Corpuscular Volume 88.5 fL (80-94); Mean Platelet Volume 10.4 fL (7.4-10.4); Monocytes # 0.7 10^3/uL (0.2-0.9); Monocytes % 6.3 %; Neutrophils # 9.19 10^3/uL (1.8-7.7); Neutrophils % 85.6 %; Nucleated Red Blood Cells % 0 %; Platelet Count 227 10^3/cmm (130-400); Red Blood Count 4.51 10^6/uL (4.1-5.3); Red Cell Distribution Width 14.3 % (12.1-15.1); White Blood Count 10.7 10^3/uL (4.0-10.0)
[2020-12-25 03:20] LABS: Anion Gap 14.5 (5-19); Blood Urea Nitrogen 13 mg/dL (6-20); Calcium 8.5 mg/dL (8.5-10.5); Carbon Dioxide 23 mmol/L (22-29); Chloride 103 mmol/L (98-107); Glomerular Filtration Rate 102.7 mL/min (90-130); Glucose 155 mg/dL (65-115); Osmolality Calculated 285 mOsm/kg (285-295); Potassium 4.5 mmol/L (3.5-5.1); Sodium 136 mmol/L (136-145)
[2020-12-25] MEDS: D5-NS 0.45% + KCL 20 mEq 20 MEQ/1,000 ML BAG 100 MEQ IV (03:34)
[2020-12-25] MEDS: ceFOXitin 2,000 MG in sodium chloride 0.9% (plus) 50 ML 100 MG IV ×3 (03:35→18:16)
[2020-12-25] MEDS: allopurinol 100 mg Tablet PO (06:00)
[2020-12-25] MEDS: famotidine 20 mg/2 mL INJ IVP ×2 (06:00→16:35)
[2020-12-25] MEDS: latanoprost 0.005% Op Soln 2.5 mL Btl 1 DROP EYE-BOTH (06:01)
[2020-12-25] MEDS: timolol 0.25% Op Soln 5 mL Btl 1 DROP EYE-BOTH (06:01)
[2020-12-25] MEDS: HYDROcodone-acetaminophen 5-325 mg Tablet 1 TAB PO ×2 (06:15→13:43)
--- NOTE | 2020-12-25 09:05 | PM.PN ---
Subjective Subjective: Interval history: Patient has abdominal pain, denies any nausea or vomiting, no flatus or BM Vitals/I&O/Wt Last Vital Signs Temp 98.2 F 12/25/20 04:00 Pulse 91 12/25/20 04:00 Resp 16 12/25/20 04:00 BP 114/71 12/25/20 04:00 Pulse Ox 97 12/25/20 04:00 12/24/20 12/25/20 12/25/20 22:59 06:59 14:59 Intake Total 2400 / 3500 1050 / 3500 Output Total 650 / 1750 1100 / 1750 Balance 1750 / 1750 -50 / 1750 Weight last 48 hrs Weight 241 lb Physical Exam Narrative: EXAM NARRATIVE: Abdomen: Soft, generalized tenderness, no guarding or rigidity, dressings mildly saturated Urinary Catheter Management^: Harmon: Cath Placed During This Visit: yes Urinary Catheter Date of Insertion: 12/24/20 Urinary Catheter Time of Insertion: 11:40 Data : 12/25/20 02:36 12/25/20 02:36 A&P Assessment and plan (1) S/P colostomy takedown: 50-year-old male status post colostomy takedown from a prior sigmoid resection for perforated diverticulitis with postop ileus Decrease IV fluids to 30 cc/h DC Harmon Start clear liquid diet Ambulate with physical therapy Incentive spirometry, wean to room air Morphine, [place], Tylenol for pain control Senna docusate for bowel regimen Lovenox SCD for DVT prophylaxis Pepcid for GI prophylaxis Status: Acute Attestations Medical Necessity Statement*: Patient will need greater than 2 nights of inpatient stay to rule out postop complications and resolution of ileus Coding Level of Care Code Acute Information Services Vice President for Chg Fwd Diagnoses S/P colostomy takedown Z98.890
[2020-12-25] MEDS: sennosides-docusate Tablet 1 TAB PO ×2 (09:17→18:15)
--- NOTE | 2020-12-25 11:41 | PC.CHAP ---
Pastoral Care Encounter/Spiritual Assessment Type of Contact [] Declined regional maintenance manager visit [] Patient/Family/Request visit [] Outpatient visit [] Follow-up visit [] Physician referral [] Code/Alert [x] Routine visit [] Staff referral [] Actively dying [] Patient sleeping [] Family support [] [] Out of room [] Palliative care [] [x] Receiving care in room [] Pre-surgical visit [] Trauma [] Long length of stay [] ICU visit [] Other: Relational/Emotional Strength [x] Patient feels connected with others/family/visitors/staff [] Distress [] Loneliness/isolation [] Abandonment Spirituality of Patient [x] Person of Aviva [] Attends Scientologist of their Aviva [x] Believes in Prayer [] Reads Bible or Methodist materials [] There are Spiritual issues to be addressed Frozen Food Department Manager Interventions [x] Prayer [x] Active listening [x] Non-anxious presence [x] Spiritual/emotional support [] Crisis/trauma care [x] Spiritual counseling [] Bereavement support [] Provided bereavement packet [] Provided Bible/devotional materials [] Provided toy/stuffed animal, coloring book to patient or family member [] Provided Communion [] Anointing/[place] [] Salvation [x] Completed spiritual assessment [] Other: Impact on Illness or Injury [] Angry [] Fearful [] Anxious [] Often cries [] Exhaustion [] Unable to work [] Unable to attend mu-ism [] Unable to walk/stand [] Unable to read [] Unable to drive [] Unable to eat/drink [] Unable to sleep [] Unable to be with family [] Patient intubated [] Other: Summary Will be in hosptle for a week,short recovery time and will be able to home and go [employer] to work. Time spent with patient 10 jenifer
[2020-12-25] MEDS: enoxaparin 40 mg/0.4 mL Syringe SUBCUT (12:40)
[2020-12-26] VITALS (13 sets, daily range): BP systolic 123–143; BP diastolic 79–90; PULSE 69–94; RESP 16–18; TEMP 36.2–36.9; O2SAT 94–98
[2020-12-26] MEDS: D5-NS 0.45% + KCL 20 mEq 20 MEQ/1,000 ML BAG 30 MEQ IV (00:43)
[2020-12-26] MEDS: HYDROcodone-acetaminophen 5-325 mg Tablet 1 TAB PO ×3 (00:43→13:48)
[2020-12-26] MEDS: ceFOXitin 2,000 MG in sodium chloride 0.9% (plus) 50 ML 100 MG IV ×3 (02:17→18:24)
[2020-12-26] MEDS: morphine 4 mg/mL SDV 1 mL 3 MG IV ×7 (02:26→22:32)
[2020-12-26 02:30] LABS: Basophils % 0.4 %; Eosinophils # 0.1 10^3/uL (0.0-0.8); Eosinophils % 0.8 %; Hematocrit 40.9 % (42.0-52.0); Hemoglobin 13.2 g/dL (11.7-16.6); Lymphocytes # 2.1 10^3/uL (0.8-4.8); Mean Corpuscular HGB Conc 32.3 g/dL (30.0-36.0); Mean Corpuscular Volume 89.9 fL (80-94); Mean Platelet Volume 10.6 fL (7.4-10.4); Monocytes # 0.6 10^3/uL (0.2-0.9); Monocytes % 6.4 %; Neutrophils # 6.74 10^3/uL (1.8-7.7); Neutrophils % 70.2 %; Nucleated Red Blood Cells % 0 %; Platelet Count 210 10^3/cmm (130-400); Red Blood Count 4.55 10^6/uL (4.1-5.3); Red Cell Distribution Width 14.6 % (12.1-15.1); White Blood Count 9.6 10^3/uL (4.0-10.0)
[2020-12-26 02:55] LABS: Blood Urea Nitrogen 9 mg/dL (6-20); Calcium 8.8 mg/dL (8.5-10.5); Carbon Dioxide 27 mmol/L (22-29); Chloride 102 mmol/L (98-107); Glomerular Filtration Rate 89.7 mL/min (90-130); Glucose 110 mg/dL (65-115); Osmolality Calculated 285 mOsm/kg (285-295); Sodium 138 mmol/L (136-145)
[2020-12-26] MEDS: famotidine 20 mg/2 mL INJ IVP ×2 (04:54→16:28)
[2020-12-26] MEDS: timolol 0.25% Op Soln 5 mL Btl 1 DROP EYE-BOTH (06:07)
[2020-12-26] MEDS: allopurinol 100 mg Tablet PO (06:07)
[2020-12-26] MEDS: latanoprost 0.005% Op Soln 2.5 mL Btl 1 DROP EYE-BOTH (06:07)
[2020-12-26] MEDS: sennosides-docusate Tablet 1 TAB PO ×2 (09:12→18:24)
[2020-12-26] MEDS: enoxaparin 40 mg/0.4 mL Syringe SUBCUT (12:10)
--- NOTE | 2020-12-26 16:34 | P.PN_ITS ---
Subjective Subjective: Interval history: Patient tolerating clear liquid diet, denies any nausea vomiting, passing flatus, no BM Vitals/I&O/Wt Last Vital Signs Temp 98.4 F 12/26/20 16:00 Pulse 81 12/26/20 16:00 Resp 18 12/26/20 16:31 BP 136/86 12/26/20 16:00 Pulse Ox 96 12/26/20 16:00 12/26/20 12/26/20 12/26/20 06:59 14:59 22:59 Intake Total 576.667 / 2230.000 550 / 550 Output Total 360 / 2535 625 / 1000 375 / 1000 Balance 216.667 / -305.000 -75 / -450 -375 / -450 Physical Exam Narrative: EXAM NARRATIVE: Abdomen: Soft, mildly distended, nontender, incisions clean dry and intact Urinary Catheter Management^: Harmon: Cath Placed During This Visit: yes, but has since been removed by the nurse Reason for Continuing Indwelling Catheter: Decision to DC Catheter Urinary Catheter Date of Insertion: 12/24/20 Urinary Catheter Time of Insertion: 11:40 Date Urinary Catheter Removed: 12/25/20 Time Urinary Catheter Discontinued: 11:00 Data : 12/26/20 02:09 12/26/20 02:09 A&P Assessment and plan (1) S/P colostomy takedown: 50-year-old male status post colostomy takedown from a prior sigmoid resection for perforated diverticulitis with postop ileus IV fluids to 30 cc/h Advance to full liquid diet Ambulate with physical therapy Incentive spirometry, wean to room air Morphine, [place], Tylenol for pain control Senna docusate for bowel regimen Lovenox SCD for DVT prophylaxis Pepcid for GI prophylaxis Status: Acute Attestations Medical Necessity Statement*: Status post colostomy takedown with postoperat sandi requiring continued inpatient stay Coding Level of Care Code Acute Peripatologist for [facility] Fwd Diagnoses S/P colostomy takedown Z98.890
[2020-12-27] VITALS (8 sets, daily range): BP systolic 125–160; BP diastolic 85–92; PULSE 82–89; RESP 15–18; TEMP 36.4–36.8; O2SAT 95–97
[2020-12-27] MEDS: ceFOXitin 2,000 MG in sodium chloride 0.9% (plus) 50 ML 100 MG IV ×2 (02:45→10:39)
[2020-12-27] MEDS: morphine 4 mg/mL SDV 1 mL 3 MG IV ×4 (02:49→12:57)
[2020-12-27] MEDS: ondansetron 2 mg/ML SDV 2 mL 4 MG IVP (02:55)
[2020-12-27] MEDS: famotidine 20 mg/2 mL INJ IVP (04:50)
[2020-12-27] MEDS: latanoprost 0.005% Op Soln 2.5 mL Btl 1 DROP EYE-BOTH (06:39)
[2020-12-27] MEDS: allopurinol 100 mg Tablet PO (06:39)
[2020-12-27] MEDS: timolol 0.25% Op Soln 5 mL Btl 1 DROP EYE-BOTH (06:40)
[2020-12-27 06:54] LABS: Basophils % 0.3 %; Eosinophils # 0.2 10^3/uL (0.0-0.8); Eosinophils % 1.7 %; Hematocrit 40.3 % (42.0-52.0); Hemoglobin 13.5 g/dL (11.7-16.6); Lymphocytes # 1.8 10^3/uL (0.8-4.8); Lymphocytes % 18.1 %; Mean Corpuscular HGB Conc 33.5 g/dL (30.0-36.0); Mean Corpuscular Hemoglobin 29.3 pg (28.0-34.0); Mean Corpuscular Volume 87.6 fL (80-94); Mean Platelet Volume 10.2 fL (7.4-10.4); Monocytes # 0.8 10^3/uL (0.2-0.9); Neutrophils # 7.09 10^3/uL (1.8-7.7); Neutrophils % 71.5 %; Nucleated Red Blood Cells % 0 %; Platelet Count 213 10^3/cmm (130-400); Red Cell Distribution Width 14.2 % (12.1-15.1); White Blood Count 9.9 10^3/uL (4.0-10.0)
[2020-12-27 07:12] LABS: Blood Urea Nitrogen 8 mg/dL (6-20); Calcium 9.4 mg/dL (8.5-10.5); Carbon Dioxide 26 mmol/L (22-29); Chloride 101 mmol/L (98-107); Glomerular Filtration Rate 102.7 mL/min (90-130); Glucose 117 mg/dL (65-115); Osmolality Calculated 279 mOsm/kg (285-295); Sodium 135 mmol/L (136-145)
--- NOTE | 2020-12-27 10:03 | PM.PN ---
Subjective Subjective: Interval history: Patient had couple of bowel movements today, no nausea or vomiting, tolerating GI soft diet Vitals/I&O/Wt Last Vital Signs Temp 97.5 F L 12/27/20 06:59 Pulse 82 12/27/20 06:59 Resp 18 12/27/20 06:59 BP 125/85 12/27/20 06:59 Pulse Ox 96 12/27/20 06:59 12/26/20 12/27/20 12/27/20 22:59 06:59 14:59 Intake Total 170 / 770 50 / 770 120 / 120 Output Total 1075 / 2300 600 / 2300 Balance -905 / -1530 -550 / -1530 120 / 120 Physical Exam Narrative: EXAM NARRATIVE: Abdomen: Soft, nondistended minimally tender, incisions clean dry and intact Urinary Catheter Management^: Harmon: Cath Placed During This Visit: yes, but has since been removed by the nurse Reason for Continuing Indwelling Catheter: Decision to DC Catheter Urinary Catheter Date of Insertion: 12/24/20 Urinary Catheter Time of Insertion: 11:40 Date Urinary Catheter Removed: 12/25/20 Time Urinary Catheter Discontinued: 11:00 Data : 12/27/20 06:30 12/27/20 06:30 A&P Assessment and plan (1) S/P colostomy takedown: 50-year-old male status post colostomy takedown from a prior sigmoid resection for perforated diverticulitis with postop ileus, resolved DC home today Status: Acute Attestations Medical Necessity Statement*: DC home today Coding Level of Care Code Acute Program Research Specialist for Chg Fwd Diagnoses S/P colostomy takedown Z98.890
--- NOTE | 2020-12-27 10:04 | P.DS_ITS ---
Discharge Providers Date of Admission: 12/24/20 15:25 Date of Discharge: December 27, 2020 Attending Provider at Admission: Dontrell Salas MD Attending Provider at Discharge: Dontrell Salas MD Primary Care Provider: Celia Maria MD Diagnoses at Discharge Discharge Diagnosis (1) S/P colostomy takedown: Status: Acute Reason for Visit Reason for Visit: perforated diverticulum Hospital Course Hospital Course This is a 50-year-old male who had undergone elective colostomy takedown on 12/24/2020. Patient previously been admitted to the hospital in September 2020 with perforated sigmoid diverticulitis with septic shock requiring sigmoid colectomy and colostomy which had to be revised couple of weeks later. At 48 hours patient had return of bowel function at the time of discharge is tolerating a GI soft diet, ambulating and pain controlled with oral pain medica tions. His vital signs are stable, his incisions were clean dry and intact Physical Exam Urinary Catheter Management^: Harmon: Cath Placed During This Visit: yes, but has since been removed by the nurse Reason for Continuing Indwelling Catheter: Decision to DC Catheter Urinary Catheter Date of Insertion: 12/24/20 Urinary Catheter Time of Insertion: 11:40 Date Urinary Catheter Removed: 12/25/20 Time Urinary Catheter Discontinued: 11:00 Discharge Data Data Completed and Pending: Pending at discharge Category Date Time Status ES surgery / GI i mages Routine Exams 12/24/20 09:48 Taken Pathology: Surgic al [PTH] Routine Pth 12/24/20 15:15 Received Labs from last 24 hours 12/27/20 12/27/20 06:30 06:30 WBC 9.9 RBC 4.60 Hgb 13.5 Hct 40.3 L MCV 87.6 MCH 29.3 MCHC 33.5 RDW 14.2 Plt Count 213 MPV 10.2 Neut % (Auto) 71.5 Lymph % (Auto) 18.1 Citrus % (Auto) 8.0 Eos % (Auto) 1.7 Baso % (Auto) 0.3 Neut # (Auto) 7.09 Lymph # (Auto) 1.8 Citrus # (Auto) 0.8 Eos # (Auto) 0.2 Baso # (Auto) 0.0 Nucleated RBC % (a uto) 0 Nucleated RBCs # 0.0 Sodium 135 L Potassium 4.0 Chloride 101 Carbon Dioxide 26 Anion Gap 12.0 BUN 8 Creatinine 0.8 GFR Calculation 102.7 Glucose 117 H Calculated Osmolal ity 279 L Calcium 9.4 Vitals: Last Vital Signs Temp 97.5 F L 12/27/20 06:59 Pulse 82 12/27/20 06:59 Resp 18 12/27/20 06:59 BP 125/85 12/27/20 06:59 Pulse Ox 96 12/27/20 06:59 Discharge Plan Discharge Patient Disposition: Home Condition: Stable Prescriptions: New hydrocodone-acetaminophen 5-325 mg tablet 1 tab PO Q6H PRN (Reason: pain) Qty: 20 RF: 0 levofloxacin 750 mg tablet 750 mg PO DAILY 5 Days RF: 0 ondansetron HCl [Zofran] 4 mg tablet 4 mg PO Q6H PRN (Reason: nausea and vomiting) Qty: 20 RF: 0 sennosides-docusate sodium [Senna with Docusate Sodium] 8.6-50 mg tablet 1 tab-cap PO BID Qty: 30 RF: 0 metronidazole [Flagyl] 500 mg tablet 500 mg PO Q8H 5 Days Qty: 15 RF: 0 Continued timolol maleate 0.25 % drops 1 drop ophthalmic (eye) DAILY@0600 RF: 0 ibuprofen 200 mg capsule 800 mg PO Q6H PRN (Reason: Pain) RF: 0 latanoprost 0.005 % drops 1 drp ophthalmic (eye) DAILY@0600 RF: 0 indomethacin 50 mg capsule 50 mg PO TID@0600,1200,1800 RF: 0 lisinopril 20 mg tablet 20 mg PO DAILY 90 Days Qty: 90 RF: 1 hydroxyzine HCl 25 mg tablet 50 mg PO .AT BEDTIME PRN (Reason: insomnia) 30 Days Qty: 60 RF: 1 gabapentin 600 mg tablet 600 mg PO TID@0600,1200,1800 RF: 0 cholecalciferol (vitamin D3) 1,250 mcg (50,000 unit) capsule 50,000 unit PO Q7D RF: 0 sertraline [Zoloft] 100 mg tablet 100 mg PO DAILY RF: 0 allopurinol 100 mg tablet 100 mg PO DAILY@0600 RF: 0 colchicine 0.6 mg tablet 0.6 mg PO DAILY PRN (Reason: unknown) RF: 0 Discontinued ibuprofen [Motrin IB] 200 mg tablet 800 mg PO TID PRN (Reason: pain) Qty: 60 RF: 0 doxycycline hyclate 100 mg capsule 100 mg PO BID 7 Days Qty: 14 RF: 0 erythromycin 500 mg tablet 500 mg PO DAILY Qty: 3 RF: 0 neomycin 500 mg tablet 1 g PO DAILY Qty: 6 RF: 0 Discharge Orders: Discharge Order (Routine); Ordered 12/27/20 Ordered By: Dontrell Salas Referrals: Dontrell Salas MD [Physician] - 01/06/21 Discharge Diet: GI Soft Activity Restrictions/Additional Instructions: 1. Up and walking as tolerated. 2. Ok to shower 3. Remove quarter inch ribbon gauze weeks slowly once daily until it falls out, does not need to be repacked 4. Do not lift more than 10 pounds. 5. Do not operate heavy machinery or drive while using pain medications. 6. Advised to return to ER or contact my office if there are any signs of infection like, increasing pain, fevers, chills, redness or drainage of pus. Discharge Attestations Time Spent in Discharge Care*: less than 30 min Quality Metrics Clinical Quality Measures During this hospital stay, did patient experience: None Coding Level of Care Code Acute [facility] DC note Diagnoses S/P colostomy takedown Z98.890
[2020-12-27] MEDS: sennosides-docusate Tablet 1 TAB PO (10:39)
== END 2020-12-27 13:06 | disposition home or self-care (01) | DRG 336 ==
LOC: MEDSURG 15:33
PROVIDERS: Admitting Provider Surgery; PCP Family Medicine; Visit Provider Surgery
PROC: 0DNE4ZZ Release Large Intestine, Percutaneous Endoscopic Approach (ICD-10-PCS; principal; 2020-12-24 09:30)
DX: Z43.3 Encounter for attention to colostomy (principal); K56.7 Ileus, unspecified; K66.0 Peritoneal adhesions (postprocedural) (postinfection); I10 Essential (primary) hypertension; G89.29 Other chronic pain; M54.5 Low back pain; M10.9 Gout, unspecified; F32.9 Major depressive disorder, single episode, unspecified; Z79.1 Long term (current) use of non-steroidal anti-inflammatories (NSAID); Z90.49 Acquired absence of other specified parts of digestive tract; Z87.891 Personal history of nicotine dependence
CPT/HCPCS: 36415; 51702; 80048; 85025; 88309; 94664; 96372; 97116; 97161; C9290; J0690; J0694; J1100; J1170; J1650; J2270; J2405; J2704; J2710; J3010; J3490; J7030

== ENCOUNTER → 2021-01-06 13:08 | Outpatient (BNVA) | payer OTHER, SELFPAY | PROVIDERS: PCP Family Medicine; Referring Provider Family Medicine; Visit Provider Orthopaedic Surgery | DX: M54.5 Low back pain (principal); G89.29 Other chronic pain | CPT/HCPCS: 72110 ==

== ENCOUNTER 2021-01-20 10:25 | Outpatient (CLI) | payer OTHER, SELFPAY | END 2021-01-20 10:26 | disposition home or self-care (01) | PROVIDERS: PCP Family Medicine; Visit Provider Surgery | DX: R19.7 Diarrhea, unspecified (principal) | CPT/HCPCS: 83630; 87177; 87209; 87506 ==

== ENCOUNTER → 2021-01-21 09:16 | Outpatient (BNVA) | payer OTHER, SELFPAY | PROVIDERS: PCP Family Medicine; Visit Provider Surgery | DX: Z98.890 Other specified postprocedural states (principal) | CPT/HCPCS: 80053; 85025 ==

== ENCOUNTER 2021-01-26 14:34 | Outpatient (CLI) | payer OTHER, SELFPAY ==
--- NOTE | 2021-01-26 15:15 | MR_ITS ---
WS: [id number] MRI LUMBAR SPINE NONCONTRAST TECHNIQUE: Sagittal T1, T2 and STIR imaging. Axial T1 and T2 imaging. CLINICAL INFORMATION: M51.36 - Other intervertebral disc degeneration, lumbar region FINDINGS: Mild lumbar curve. No acute compression. No high-grade central canal stenosis. L1-L2: Normal L2-L3: Normal L3-L4: Mild annular bulging. Moderate facet arthropathy. Small bilateral foraminal protrusions with m ild bilateral foraminal narrowing. Slight contact of the exiting left greater than right L3 nerve rolly t. Moderate facet arthropathy. L4-L5: Mild annular bulging. Slight effacement of ventral thecal sac with narrowing of the subarticul ar recess. Mild bilateral foraminal narrowing. Eccentric disc bulging slightly contacts the exiting L 4 nerve roots bilaterally. Moderate facet arthropathy. L5-S1: Mild annular bulging. Slight effacement of ventral thecal sac. Spinal canal and foramen are pa tent. Mild facet arthropathy. Visualized pelvic bony structures: Normal. Paravertebral soft tissues: Normal. MR/MR lumbar spine wo con* [id number] IMPRESSION: 1. Mild lumbar curve. No acute compression. No high-grade stenosis. 2. Small bilateral foraminal protrusions L3-4 with mild bilateral foraminal na rrowing. Slight contact of the exiting L3 nerve roots bilaterally. 3. Mild annular bulging L4-5 with slight narrowing of the subarticular recess. Mild bilateral L4-5 foraminal narrowing. 4. Moderate facet arthropathy L3-L4 and L4-L5.
--- NOTE | 2021-01-26 16:00 | MR_ITS ---
WS: [id number] MRI CERVICAL SPINE NONCONTRAST TECHNIQUE: Sagittal T1, T2 and STIR imaging. Axial T2, gradient, and fiesta imaging. CLINICAL INFORMATION: M48.02 - Spinal stenosis, cervical region COMPARISON: None. FINDINGS: Straightening of the normal cervical lordosis. Cord signal is normal. No high-grade central canal kirill rowing. C2-C3: Normal. C3-C4: Mild left and no significant right foraminal narrowing. Mild left facet arthropathy. Spinal ca nal is patent. C4-C5: Mild annular bulging. Mild facet arthropathy. Spinal canal and foramen are patent. C5-C6: Mild disc osteophytic ridging. Moderate facet arthropathy. Spinal canal and foramen are patent . C6-C7: Shallow left pericentral disc osteophyte protrusion. Mild central canal stenosis. Mild to mode rate left and no significant right foraminal narrowing. C7-T1: Mild left and no significant right foraminal narrowing. Spinal canal is patent. Visualized brain stem structures: Normal. Prevertebral soft tissues: Normal. MR/MR cervical spin wo con* [id number] IMPRESSION: 1. Straightening of the normal cervical lordosis. Cord signal is normal. 2. Mild to moderate left C3-C4 and left C6-C7 foraminal narrowing. 3. Left pericentral disc osteophyte protrusion C6-C7 with mild central canal s tenosis. 4. Mild to moderate left C3-4 and C5-6 facet arthropathy. 5. Mild left C7-T1 foraminal narrowing.
== END 2021-01-26 14:35 | disposition home or self-care (01) ==
LOC: RADSHAW 14:39
PROVIDERS: PCP Family Medicine; Visit Provider Orthopaedic Surgery
DX: M48.02 Spinal stenosis, cervical region (principal); M51.36 Other intervertebral disc degeneration, lumbar region; M47.812 Spondylosis without myelopathy or radiculopathy, cervical region; M25.78 Osteophyte, vertebrae; M47.816 Spondylosis without myelopathy or radiculopathy, lumbar region; M51.26 Other intervertebral disc displacement, lumbar region
CPT/HCPCS: 72141; 72148

== ENCOUNTER 2021-02-18 09:31 | Outpatient (CLI) | payer OTHER, SELFPAY ==
[2021-02-18] MEDS: iohexol 300 mg/mL 50 mL Btl PO (11:12)
[2021-02-18] MEDS: iohexol 300 mg/mL 100 mL Btl IV (11:25)
--- NOTE | 2021-02-18 11:30 | CT_ITS ---
WS: [id number] CT ABDOMEN PELVIS TECHNIQUE: Contrast-enhanced CT of the abdomen and pelvis with coronal and sagittal reformatted image s. CLINICAL INFORMATION: Z98.890 - Other specified postprocedural states COMPARISON: October 09, 2020 September 30, 2020 DLP: 1204.[address] scans at [facility] use at least one of these dose optimization techniques: automat ed exposure control; mA and/or kV adjustment per patient size (includes targeted exams where dose is matched to clinical indication); or iterative reconstruction. FINDINGS: Interval colostomy takedown with prior partial sigmoid resection. No evidence of small large bowel ob struction. Persistent described fluid collection along the midline abdominal incision has resolved. D iastases of the rectus abdominis. No recurrent hernia. Diffuse fatty infiltration liver. Normal gallbladder. Normal spleen. Normal GE junction. Fatty atroph y of the pancreas. Lung bases are well aerated. Adrenal glands are normal. Normal renal parenchymal e nhancement. No hydronephrosis. Prior postoperative changes prior right inguinal hernia repair. Right unilateral L5 spondylolysis. CT/CT abdomen pelvis w con* [id number] IMPRESSION: 1. Interval colostomy takedown with prior partial sigmoid resection. 2. No evidence of small or large bowel obstruction. 3. Previously described incisional fluid collection has resolved. 4. No other significant changes from previous. 5. Diffuse fatty infiltration liver. 6. Unilateral right L5 pars defect.
== END 2021-02-18 09:32 | disposition home or self-care (01) ==
PROVIDERS: PCP Family Medicine; Visit Provider Surgery
DX: Z98.890 Other specified postprocedural states (principal); K76.0 Fatty (change of) liver, not elsewhere classified
CPT/HCPCS: 74177; Q9967

== ENCOUNTER → 2021-06-18 10:58 | Outpatient (BNVA) | payer BC, SELFPAY | PROVIDERS: PCP Family Medicine; Visit Provider Emergency Medicine | DX: M1A.0790 Idiopathic chronic gout, unspecified ankle and foot, without tophus (tophi) (principal) | CPT/HCPCS: 80053; 84550; 85025 ==

== ENCOUNTER → 2021-06-25 10:08 | Outpatient (BNVA) | payer BC, SELFPAY | PROVIDERS: PCP Family Medicine; Visit Provider Internal Medicine | DX: M25.59 Pain in other specified joint (principal); Z79.899 Other long term (current) drug therapy | CPT/HCPCS: 80053; 85025; 85651; 86140 ==

== ENCOUNTER → 2021-07-03 09:32 | Outpatient (BNVA) | payer BC, SELFPAY | PROVIDERS: PCP Family Medicine; Visit Provider Internal Medicine | DX: M1A.0790 Idiopathic chronic gout, unspecified ankle and foot, without tophus (tophi) (principal); M25.50 Pain in unspecified joint; M54.50 Low back pain, unspecified; G89.29 Other chronic pain; R79.89 Other specified abnormal findings of blood chemistry; Z79.899 Other long term (current) drug therapy | CPT/HCPCS: 36415; 82728; 83540; 84155; 84165; 84550; 85651; 86140; 99214 ==

== ENCOUNTER → 2021-09-16 14:09 | Outpatient (BNVA) | payer BC, SELFPAY | PROVIDERS: PCP Family Medicine; Visit Provider Internal Medicine Critical Care Medicine | DX: J41.0 Simple chronic bronchitis (principal); G47.10 Hypersomnia, unspecified; R06.02 Shortness of breath | CPT/HCPCS: 71046 ==

== ENCOUNTER → 2021-09-17 00:01 | Outpatient (BNVA) | payer BC, SELFPAY | PROVIDERS: PCP Family Medicine; Visit Provider Family Medicine | DX: Z20.822 Contact with and (suspected) exposure to COVID-19 (principal); J41.0 Simple chronic bronchitis; R06.02 Shortness of breath | CPT/HCPCS: 87635 ==

== ENCOUNTER 2021-09-23 12:42 | Outpatient (CLI) | payer BC, SELFPAY ==
--- NOTE | 2021-09-23 13:34 | PFTS_ITS ---
Date of Study:09/23/21 Date of Dictation: MECHANICS: Forced vital capacity (FVC) is normal. Forced expiratory volume in one second (FEV1) is normal. FEV1/FVC is normal. FLOW VOLUME LOOP: Hesitation during the forced expiratory maneuver but otherwise normal. LUNG VOLUMES: Total lung capacity (TLC) is normal. Residual volume (RV) is mildly reduced. DIFFUSING CAPACITY FOR CARBON MONOXIDE: Not measured. INTERPRETATION: The prebronchodilator spirometry is normal. No postbronchodilator spirometry was performed. Total lung capacity is normal. There is minimal nonspecific reduction in residual volume. Gas exchange (DLCO) was not measured. MTDD
== END 2021-09-23 12:43 | disposition home or self-care (01) ==
LOC: RT 12:44
PROVIDERS: PCP Family Medicine; Visit Provider Family Medicine
DX: J41.0 Simple chronic bronchitis (principal); R06.02 Shortness of breath
CPT/HCPCS: 94010; 94726

== ENCOUNTER → 2021-12-07 09:00 | Outpatient (BNVA) | payer BC, SELFPAY | PROVIDERS: PCP Family Medicine; Visit Provider Family Medicine | DX: M1A.0790 Idiopathic chronic gout, unspecified ankle and foot, without tophus (tophi) (principal); J30.9 Allergic rhinitis, unspecified; M54.12 Radiculopathy, cervical region; F51.05 Insomnia due to other mental disorder; F99 Mental disorder, not otherwise specified; G47.00 Insomnia, unspecified; F32.1 Major depressive disorder, single episode, moderate; J41.0 Simple chronic bronchitis; I10 Essential (primary) hypertension; Z13.220 Encounter for screening for lipoid disorders; Z13.6 Encounter for screening for cardiovascular disorders; G47.10 Hypersomnia, unspecified; R06.02 Shortness of breath; M48.062 Spinal stenosis, lumbar region with neurogenic claudication; J30.1 Allergic rhinitis due to pollen | CPT/HCPCS: 80053; 80061; 85025 ==

== ENCOUNTER → 2022-06-30 09:17 | Outpatient (BNVA) | payer BC, SELFPAY | PROVIDERS: PCP Family Medicine; Visit Provider Family Medicine | DX: M1A.0790 Idiopathic chronic gout, unspecified ankle and foot, without tophus (tophi) (principal); I10 Essential (primary) hypertension; J41.0 Simple chronic bronchitis; Z13.1 Encounter for screening for diabetes mellitus; R73.9 Hyperglycemia, unspecified; R68.2 Dry mouth, unspecified; R06.02 Shortness of breath; Z68.39 Body mass index [BMI] 39.0-39.9, adult | CPT/HCPCS: 80053; 83036; 85025 ==

== ENCOUNTER 2022-07-08 20:30 | Inpatient (IN) | payer BC, SELFPAY ==
[2022-07-08 20:42] VITALS: BP 135/81; PULSE 115; RESP 16; TEMP 36.6; O2SAT 98
[2022-07-08 20:49] LABS: Glucose Point of Care > 600 mg/dL (70-110)
--- NOTE | 2022-07-08 21:01 | ED_ITS ---
HPI - General Adult General: Chief complaint: General Medical Stated complaint: High Blood Sugar Time Seen by Provider: 07/08/22 21:01 History of Present Illness: Mr. Vernon is a 52-year-old gentleman with history of hypertension, obesity, prior history of stroke, abdominal surgery secondary to bowel perforation, abdominal wall hernia presenting to the emergency department due to elevated blood sugar. Patient reports a number of months of progressive thirst, weight loss, increased urination, increased hunger. His suspected that he may have diabetes and had bought a glucometer which read high today. Patient does endorse some abdominal discomfort and nausea and vomiting. Denies other changes in health. Density symptoms is moderate. Course has worsened. No other specific changes in health, exacerbating, or alleviating factors identified. Per chart review patient has a hemoglobin A1c from 06/30/2022 of 10.3, I am unsure if patient was aware of this. He is not currently on any medications for diabetes. Onset (ago): month(s) Severity: moderate Associated symptoms: Reports malaise, nausea and other Review of Systems General: Reports: 10 or more systems reviewed and unremarkable except in HPI and below Const: Reports: malaise GI: Reports: nausea PFSH ED PFSH: Medical History Arthritis of facet joint of lumbar spine Chronic low back pain Colostomy necrosis Depression Gout HTN (hypertension), benign Insomnia Perforation of sigmoid colon due to diverticulitis Surgical History H/O exploratory laparotomy (10/09/20) With revision of colostomy H/O knee surgery Hx of inguinal hernia surgery S/P colostomy takedown (12/24/20) S/P laparoscopic-assisted sigmoidectomy (09/30/20) with colostomy Status post colonoscopy with polypectomy (12/23/20) Family History Father Spondylosis Aorta aneurysm Mother Cancer Depression Social History Smoking and tobacco status: never smoked Quit status (tobacco): has quit using tobacco Year quit tobacco: 2015 Former quit date comment: 3ppd x 30 years Alcohol intake: current Alcohol intake frequency: 3 or more drinks per day Alcohol type: beer Desire information about alcohol rehabilitation?: No History of recent travel: No Physical Exam Const: COMMON NORMALS: alert GENERAL APPEARANCE: cooperative and well developed HENMT: COMMON NORMALS: normocephalic and atraumatic HEAD & SCALP: normocephalic and atraumatic Eye: COMMON NORMALS: conjunctivae normal CONJUNCTIVA: Yes conjunctivae normal SCLERA: sclerae normal Neck/C-Spine: COMMON NORMALS: supple GENERAL: Yes trachea midline Resp: COMMON NORMALS: normal respiratory effort EFFORT & INSPECTION: Yes able to speak in complete sentences Cardio: COMMON NORMALS: regular rate and regular rhythm RATE: regular rate RHYTHM: regular rhythm GI: COMMON NORMALS: Soft to palpation PALPATION: Yes Soft to palpation, Yes Tenderness to palpation present (GI), No Guarding due to palpation present (GI) and No Rigid due to palpation OTHER: Hernia present Extremity: GENERAL: Yes normal exam except as noted and No edema Neuro: COMMON NORMALS: moves all extremities SENSORIUM/ORIENTATION: Yes alert and No Orientation impaired Psych: COMMON NORMALS: mental status grossly normal and Normal thought process present THOUGHT PROCESS: Normal thought process present Course Vital Signs: Vital signs: Vital Signs Temperature 98.7 F 07/09/22 17:00 Pulse Rate 90 07/09/22 17:00 Respiratory Rate 14 07/09/22 17:00 Blood Pressure 130/76 07/09/22 17:00 Pulse Oximetry 94 07/09/22 17:00 Oxygen Delivery Me thod 07/09/22 16:10 [facility] - General Adult Medical Decision Making 52-year-old gentleman presenting with signs and symptoms of diabetes without diagnosed history not currently on medications. ABG is compensated though patient has other evidence of DKA including positive ketones, anion gap, decreased bicarb and hyperglycemia. IV fluids and insulin drip order set ordered. Discussed results of ED evaluation with the patient including need for inpatient management. Patient agreeable with plan. Medical Records I reviewed the patient's medical records. Lab Data I reviewed the patient's lab results. : 07/09/22 03:14 07/09/22 03:14 Radiology Impressions Abdomen/Pelvis CT 07/08/22 22:05 IMPRESSION: 1. There is a new anterior abdominal wall hernia present the right containing nondilated fluid-filled small bowel loops. Some subtle haziness seen in the adjacent mesentery at the hernia hiatus. Early incarceration cannot be excluded. 2. A smaller 2nd ventral wall hernia seen immediately superior to the larger hernia containing some mesenteric fat. 3. Normal appendix 4. Mild diverticulosis of the sigmoid colon 5. Fatty infiltration of the liver ADDENDUM: 07/09/22 0006 CRITICAL RESULT: THIS REPORT CONTAINS FINDINGS THAT MAY BE CRITICAL TO PATIENT CARE. The findings were verbally communicated via telephone conference with Michael Tsai at 12:05 AM CDT on 07/09/2022. The findings were acknowledged and understood. Laboratory Results WBC 7.8 10^3/uL (4.0-10.0) 07/08/22 21:10 RBC 4.98 10^6/uL (4.1-5.3) 07/08/22 21:10 Hgb 15.9 g/dL (11.7-16.6) 07/08/22 21:10 Hct 43.9 % (42.0-52.0) 07/08/22 21:10 MCV 88.2 fl (80-94) 07/08/22 21:10 MCH 31.9 pg (28.0-34.0) 07/08/22 21:10 MCHC 36.2 g/dL (30.0-36.0) H 07/08/22 21:10 RDW 12.8 % (12.1-15.1) 07/08/22 21:10 Plt Count 172 10^3/cmm (130-400) 07/08/22 21:10 MPV 11.6 fL (7.4-10.4) H 07/08/22 21:10 Neut % (Auto) 68.7 % 07/08/22 21:10 Lymph % (Auto) 23.5 % 07/08/22 21:10 Meade % (Auto) 6.1 % 07/08/22 21:10 Eos % (Auto) 0.9 % 07/08/22 21:10 Baso % (Auto) 0.4 % 07/08/22 21:10 Neut # (Auto) 5.34 10^3/uL (1.8-7.7) 07/08/22 21:10 Lymph # (Auto) 1.8 10^3/uL (0.8-4.8) 07/08/22 21:10 Meade # (Auto) 0.5 10^3/uL (0.2-0.9) 07/08/22 21:10 Eos # (Auto) 0.1 10^3/uL (0.0-0.8) 07/08/22 21:10 Baso # (Auto) 0.0 10^3/uL (0.0-0.1) 07/08/22 21:10 Nucleated RBC % (auto) 0.5 % 07/08/22 21:10 Nucleated RBCs # 0.0 /100WBC 07/08/22 21:10 Specimen Type Arterial 07/08/22 21:36 Sample Site Radial, left 07/08/22 21:36 ABG pH 7.37 (7.35-7.45) 07/08/22 21:36 ABG pCO2 40.1 mmHg (35-45) 07/08/22 21:36 ABG pO2 70.9 mmHg (80.0-100.0) L 07/08/22 21:36 ABG HCO3 23.3 mmol/L (22-26) 07/08/22 21:36 ABG Base Excess -1.8 mmol/L (-2.0-2.0) 07/08/22 21:36 Jevon Test Pos 07/08/22 21:36 Hematocrit 45.8 % (42-52) 07/08/22 21:36 O2 Delivery Device None 07/08/22 21:36 FiO2 21.0 % 07/08/22 21:36 Insurance Claims Clerk ID [place] 07/08/22 21:36 Sodium 122 mmol/L (136-145) L 07/08/22 21:10 Potassium 4.1 mmol/L (3.5-5.1) 07/08/22 21:10 Chloride 87 mmol/L (98-107) L 07/08/22 21:10 Carbon Dioxide 17 mmol/L (22-29) L 07/08/22 21:10 Anion Gap 22.1 (5-19) H 07/08/22 21:10 BUN 19 mg/dL (6-20) 07/08/22 21:10 Creatinine 0.6 mg/dL (0.7-1.2) L 07/08/22 21:10 GFR Calculation 142.0 mL/min (90-130) H 07/08/22 21:10 Glucose 605 mg/dL (65-115) H* 07/08/22 21:10 POC Glucose 505 mg/dL (70-110) H* 07/08/22 23:48 Calculated Osmolality 284 mOsm/kg (285-295) L 07/08/22 21:10 Lactic Acid 1.3 mmol/L (0.5-2.2) 07/08/22 21:10 Calcium 9.7 mg/dL (8.5-10.5) 07/08/22 21:10 Total Bilirubin 0.4 mg/dL (0.15-1.2) 07/08/22 21:10 AST 5 U/L (0-40) 07/08/22 21:10 ALT 29 U/L (0-41) 07/08/22 21:10 Alkaline Phosphatase 203 U/L (40-130) H 07/08/22 21:10 Total Protein 7.1 g/dL (6.6-8.7) 07/08/22 21:10 Albumin 4.3 g/dL (3.5-5.2) 07/08/22 21:10 Globulin 2.8 g/dL (1.3-4.6) 07/08/22 21:10 Urine Color Colorless (Yellow) 07/08/22 21:30 Urine Appearance Clear (CLEAR) 07/08/22 21:30 Urine pH 5 (5-7) 07/08/22 21:30 Ur Specific Marm[place]uke 1.010 (1.005-1.030) 07/08/22 21:30 Urine Protein Neg (Negative) 07/08/22 21:30 Urine Glucose (UA) 4+ (Normal) H 07/08/22 21:30 Urine Ketones 1+ (Negative) H 07/08/22 21:30 Urine Blood Neg (Negative) 07/08/22 21:30 Urine Nitrate Negative (Negative) 07/08/22 21:30 Urine Bilirubin Neg (Negative) 07/08/22 21:30 Urine Urobilinogen Norm mg/dL (Negative) 07/08/22 21:30 Ur Leukocyte Esterase Negative (Negative) 07/08/22 21:30 Serum Ketones Negative (Negative) 07/08/22 21:30 Critical Care Time Critical Care Time: Critical Care Time: Yes Total Critical Care Time: 35 Attestation: Due to a high probability of clinically significant, possibly life threatening deterioration, the patient required my highest level of attention and preparedness to intervene emergently and I personally spent this critical care time directly and personally managing the patient. This critical care time included obtaining a history; examining the patient; pulse oximetry; ordering and review of laboratory and imaging studies; arranging urgent treatment with development of a management plan; evaluation of patient's response to treatment; frequent reassessment; and, discussions with other providers as applicable. It was exclusive of separately billable procedures. Primary system involved is metabolic Discharge Plan Discharge Patient Disposition: Admitted As Inpatient Admit Provider: Julio C Vance Clinical Impression: DKA (diabetic ketoacidosis) Condition: Stable Discharge Diet: Cardiac and Low Fat Discharge Activity: Increase activity as tolerated Coding Level of Care Code ED Legal Service Specialist for Jb Fwd Exam Comprehensive
[2022-07-08] MEDS: sodium chloride 0.9% 1,000 ML 999 ML IV ×2 (21:34→22:23)
[2022-07-08 21:37] LABS: Blood Urea Nitrogen 19 mg/dL (6-20); Calcium 9.7 mg/dL (8.5-10.5); Carbon Dioxide 17 mmol/L (22-29); Total Bilirubin 0.4 mg/dL (0.15-1.2); Total Protein 7.1 g/dL (6.6-8.7)
[2022-07-08 21:42] LABS: Add Urine Microscopic? NO; Charge for UA Resulting for Rev
[2022-07-08 21:48] LABS: ABG PCO2 40.1 mmHg (35-45); ABG PH Result 7.37 (7.35-7.45); Arterial Blood Gas Hematocrit 45.8 % (42-52); Base Excess ABG -1.8 mmol/L (-2.0-2.0); Blood Gas Allen Test Pos; Blood Gas Operator Identificat WALCI; Blood Gas Sample Site Radial, left; Blood Gas Sample Type Arterial; HCO3 ABG 23.3 mmol/L (22-26); PO2 ABG 70.9 mmHg (80.0-100.0)
[2022-07-08 21:56] LABS: Urine Appearance Clear (CLEAR); Urine Color Colorless (Yellow); pH Urine 5 (5-7)
[2022-07-08 21:57] LABS: Bilirubin Urine Neg (Negative); Blood Urine Neg (Negative); Glucose Urine UA 4+ (Normal); Ketones Urine 1+ (Negative); Leukocyte Esterase Urine Negative (Negative); Nitrate Urine Negative (Negative); Protein Urine Neg (Negative); Urobilinogen Urine Norm (Negative)
[2022-07-08 22:05] LABS: Basophils % 0.4 %; Eosinophils # 0.1 10^3/uL (0.0-0.8); Eosinophils % 0.9 %; Hematocrit 43.9 % (42.0-52.0); Hemoglobin 15.9 g/dL (11.7-16.6); Lymphocytes # 1.8 10^3/uL (0.8-4.8); Lymphocytes % 23.5 %; Mean Corpuscular HGB Conc 36.2 g/dL (30.0-36.0); Mean Corpuscular Hemoglobin 31.9 pg (28.0-34.0); Mean Corpuscular Volume 88.2 fl (80-94); Mean Platelet Volume 11.6 fL (7.4-10.4); Monocytes # 0.5 10^3/uL (0.2-0.9); Monocytes % 6.1 %; Neutrophils # 5.34 10^3/uL (1.8-7.7); Neutrophils % 68.7 %; Nucleated Red Blood Cells % 0.5 %; Platelet Count 172 10^3/cmm (130-400); Red Blood Count 4.98 10^6/uL (4.1-5.3); Red Cell Distribution Width 12.8 % (12.1-15.1); White Blood Count 7.8 10^3/uL (4.0-10.0)
--- NOTE | 2022-07-08 22:05 | CTR_ITS ---
PROCEDURE INFORMATION: Exam: CT Abdomen And Pelvis Without Contrast Exam date and time: 07/08/2022 10:15 PM Age: 52 years old Clinical indication: Nausea and vomiting; Abdominal pain; Generalized; Prior surgery; Surgery type: Inguinal hernia repair. Sigmoidectomy. Colostomy reversl. Patient HX: C/O abd pain with n/v. History of diverticulitis. ; Additional info: Abd pain, n/v TECHNIQUE: Imaging protocol: Computed tomography of the abdomen and pelvis without contrast. Radiation optimization: All CT scans at this facility use at least one of these dose optimization techniques: automated exposure control; mA and/or kV adjustment per patient size (includes targeted exams where dose is matched to clinical indication); or iterative reconstruction. COMPARISON: CT abdomen pelvis w con* [id number] 02/18/2021 11:23 AM RADIATION DOSE METRICS: Total DLP (mGy-cm): 1176.45 FINDINGS: Liver: There is mild hypoattenuation the hepatic parenchyma compatible with fatty infiltration. Gallbladder and bile ducts: Normal. No calcified stones. No ductal dilation. Pancreas: Normal. No ductal dilation. Spleen: Normal. No splenomegaly. Adrenal glands: Normal. No mass. Kidneys and ureters: Some strandy opacities are seen in the perinephric fascia bilaterally likely representing chronic scarring. Stomach and bowel: There is a anterior abdominal wall hernia present on the right containing nondilated fluid-filled small bowel loops. This finding is new compared with 02/19/2020. Some subtle haziness seen in the mesenteric fat at the hernia hiatus. An early incarceration cannot be excluded. A surgical anastomosis seen at the rectosigmoid junction. Few diverticula are seen on the proximal sigmoid colon. Appendix: The appendix is visualized and is normal in configuration. Intraperitoneal space: See Stomach and bowel finding. Vasculature: Unremarkable. No abdominal aortic aneurysm. Lymph nodes: Unremarkable. No enlarged lymph nodes. Urinary bladder: Unremarkable as visualized. Reproductive: Unremarkable as visualized. Bones/joints: Unremarkable. No acute fracture. Soft tissues: A 2nd smaller ventral wall hernias seen on the right immediately superior to the larger hernia. This hernia contains mesenteric fat. CT/CT abdomen pelvis wo con [id number] IMPRESSION: 1. There is a new anterior abdominal wall hernia present the right containing nondilated fluid-filled small bowel loops. Some subtle haziness seen in the adjacent mesentery at the hernia hiatus. Early incarceration cannot be excluded. 2. A smaller 2nd ventral wall hernia seen immediately superior to the larger hernia containing some mesenteric fat. 3. Normal appendix 4. Mild diverticulosis of the sigmoid colon 5. Fatty infiltration of the liver
[2022-07-08 22:31] LABS: Albumin Level 4.3 g/dL (3.5-5.2); Alkaline Phosphatase 203 U/L (40-130); Chloride 87 mmol/L (98-107); Globulin 2.8 g/dL (1.3-4.6); Osmolality Calculated 284 mOsm/kg (285-295)
[2022-07-08 23:22] LABS: Anion Gap 22.1 (5-19); Glucose 605 mg/dL (65-115); Potassium 4.1 mmol/L (3.5-5.1)
[2022-07-08 23:23] LABS: Sodium 122 mmol/L (136-145)
[2022-07-08 23:24] LABS: Alanine Aminotransferase 29 U/L (0-41); Aspartate Amino Transferase 5 U/L (0-40)
[2022-07-08 23:31] LABS: Ketone (Acetest) Serum Negative (Negative)
[2022-07-09] VITALS (197 sets, daily range): BP systolic 115–158; BP diastolic 75–103; PULSE 82–112; RESP 12–37; TEMP 36.6–37.1; O2SAT 85–98; BMI 39.4
--- NOTE | 2022-07-09 00:05 | USCV_ITS ---
Transthoracic Echo w Contrast Bogdan Vernon Age: 52 Gender: M : 1970 Exam Date: 07/09/2022 04:19 Ordering Phys: Julio C Vance MD Technologist: JUAREZ Exam Location: [facility] [place] Indication: sob BP: 135 / 91 HR: 91 Rhythm: Sinus Technical Quality: Adequate with [employer] MEASUREMENTS (Male / Female) Normal Values 2D ECHO LV Diastolic Diameter PLAX 4.8 cm 4.2 - 5.9 / 3.9 - 5.3 cm LV Systolic Diameter PLAX 3.0 cm IVS Diastolic Thickness 1.2 cm 0.6 - 1.0 / 0.6 - 0.9 cm IVS Systolic Thickness 1.8 cm LVPW Diastolic Thickness 1.4 cm 0.6 - 1.0 / 0.6 - 0.9 cm LVPW Systolic Thickness 2.0 cm LVOT Diameter 2.0 cm LV Ejection Fraction 2D Teich 66.3 % LV Ejection Fraction MOD 2C 60.1 % LV Ejection Fraction 2C AL 60.2 % LA Diameter 3.3 cm LA Width 3.4 cm LA Height 4.6 cm RA Width 3.5 cm RA Height 3.8 cm Aorta at Sinotubular Diameter 3.4 cm M-MODE Aortic Annulus Diameter 4.0 cm LA Ao Ratio MM 0.8 MV E Point Septal Separation 0.3 cm DOPPLER AV Peak Velocity 125.0 cm/s LVOT Peak Velocity 91.0 cm/s AV Area Cont Eq vti 2.9 cm squared AV Area Cont Eq pk 2.4 cm squared MV Area PHT 5.0 cm squared Mitral E to A Ratio 0.9 MV E' Velocity 41.0 cm/s Mitral E to MV E' Ratio 7.7 Mitral E to LV E' Lateral Ratio 7.1 Mitral E to LV E' Septal Ratio 8.6 TR Peak Velocity 293.0 cm/s TR Peak Gradient 34.3 mmHg TV Peak E Velocity 49.0 cm/s Right Atrial Pressure 5.0 mmHg Pulmonary Artery Systolic Pressu 39.3 mmHg PV Peak Velocity 95.0 cm/s FINDINGS Left Ventricle Normal left ventricular size and systolic function, EF 59 %. No regional wall motion abnormalities. Mild left ventricular hypertrophy. Grade I/IV diastolic dysfunction (abnormal relaxation filling pattern), normal to mildly elevated filling pressures. Right Ventricle The right ventricle is normal in size and function. Right Atrium The right atrium is normal in size. Left Atrium The left atrium is normal in size. Mitral Valve No gross morphologic abnormalities Aortic Valve No gross morphologic abnormalities Tricuspid Valve No gross morphologic abnormalities Pulmonic Valve Not visualized well Pericardium Normal pericardium without effusion. Aorta Normal ascending aorta dimension. IVC Inferior vena cava not visualized. CONCLUSIONS Normal left ventricular size and systolic function, EF 59 %. No regional wall motion abnormalities. Mild left ventricular hypertrophy. Grade I/IV diastolic dysfunction (abnormal relaxation filling pattern), normal to mildly elevated filling pressures. Normal cardiac chamber sizes. No significant valvular abnormalities were noted. No pericardial effusion Echo contrast was used for LV function analysis No similar previous studies are available for comparison Dr Jordin Adair MD FACC (Electronically Signed) Final Date: 09 July 2022 13:35 S
--- NOTE | 2022-07-09 00:08 | PM.HP ---
Providers/Chief Complaint Admitting Physician: Julio C Vance MD Primary Care Provider: Celia Maria MD Chief Complaint: High Blood Sugar History of Present Illness Bogdan Vernon is a 52 year old male with past medical history of hypertension recently diagnosed diabetes not on antidiabetic medications currently, gout, COPD, morbid obesity, perforated colon s/p coloectomy and colostomy, abdominal wall hernia ,worked up as outpatient for bariatric surgery came in today with chief complaint of some abdominal discomfort nausea and vomiting, according to the patient for the past few months he has experienced polydipsia polyphagia polyuria , 's had bought a new glucometer, suspecting that he had diabetes, and has been giving high readings.He has also been complaining of occasional chest pain as well as shortness of breath, was scheduled to get echo as well as stress test as outpatient. Currently denies any fever cough, headache. Upon arrival in the ER he was worked up for above-mentioned complaints. Pertinent imaging studies: CT abdomen pelvis wo con: There is a new anterior abdominal wall hernia present the right containing nondilated fluid-filled small bowel loops. Some subtle haziness seen in the adjacent mesentery at the hernia hiatus. Early incarceration cannot be excluded.A smaller 2nd ventral wall hernia seen immediately superior to the larger hernia containing some mesenteric fat. Pertinent labs: WBC 7.8, H&H:15/43 , PLT : 172 , serum sodium 122 serum potassium 4.1, BUN serum creatinine:19/0.6 , anion gap:22, Serum bicarb:17 , urine ketone positive ABG: pH 7.37, PCO2 40, PO2 70.9 Review of Systems General: Reports: 10 or more systems reviewed and unremarkable except in HPI and below Const: Denies: fever(s), chills, body aches, change in appetite or diaphoresis Card: Denies: palpitations, edema, swelling of feet/ankles, dyspnea on exertion, orthopnea or leg pain with exertion Resp: Denies: dyspnea, productive cough, wheezing or pain on inspiration GI: Reports: abdominal pain, nausea and vomiting; Denies: diarrhea or constipation : Denies: flank pain or difficulty urinating Musc: Denies: back pain, extremity pain or extremity swelling Neuro: Denies: headache(s), difficulty walking or confusion Medications/Allergies Home Medications Medication Instructions Recorded Confirmed Last Taken Type ibuprofen 200 mg capsule 800 mg PO Q6H PRN Pain 08/04/20 10/05/22 03/28/21 History timolol maleate 0.25 % eye drops 1 drop ophthalmic (eye) DAILY@0600 04/29/20 06/30/22 12/21/20 History latanoprost 0.005 % eye drops 1 drp ophthalmic (eye) DAILY@0600 09/03/20 06/30/22 12/21/20 History tizanidine 4 mg capsule 4 mg PO BID PRN 03/20/21 06/30/22 Unknown History naloxone 2 mg/actuation nasal spray mg intranasal PRN 03/27/21 06/30/22 Unknown History sildenafil 25 mg tablet 25 mg PO DAILY PRN sexual activity 05/18/21 06/30/22 Unknown Rx #30 tabs albuterol sulfate 90 mcg/actuation 2 puff inhalation QID PRN 12/07/21 06/30/22 Unknown Rx aerosol inhaler (ProAir HFA) shortness of breath or wheezing 30 days #18 grams fluticasone propionate 50 2 spray intranasal Q12H 30 days 12/07/21 06/30/22 Unknown Rx mcg/actuation nasal #16 grams spray,suspension (Flonase Allergy Relief) losartan 25 mg tablet 25 mg PO DAILY 30 days #30 tabs 06/02/22 06/30/22 Unknown Rx quetiapine 50 mg tablet 50 mg PO .at bedtime 90 days #90 06/02/22 06/30/22 Unknown Rx tabs sertraline 100 mg tablet (Zoloft) 200 mg PO DAILY 90 days #180 tabs 06/02/22 06/30/22 Unknown Rx hydroxyzine HCl 25 mg tablet 50 mg PO .AT BEDTIME PRN insomnia 06/28/22 06/30/22 Unknown History allopurinol 300 mg tablet 300 mg PO DAILY 90 days #90 tabs 06/30/22 06/30/22 Unknown Rx Allergies Allergy/AdvReac Type Severity Reaction Status Date / Time adhesive tape Allergy ALGY-Bliste Verified 06/30/22 07:08 r latex Allergy rips skin Verified 06/30/22 07:08 PFSH Acute PFSH: Medical History Arthritis of facet joint of lumbar spine Chronic low back pain Colostomy necrosis Depression Gout HTN (hypertension), benign Insomnia Perforation of sigmoid colon due to diverticulitis Surgical History H/O exploratory laparotomy (10/09/20) With revision of colostomy H/O knee surgery Hx of inguinal hernia surgery S/P colostomy takedown (12/24/20) S/P laparoscopic-assisted sigmoidectomy (09/30/20) with colostomy Status post colonoscopy with polypectomy (12/23/20) Family History Father Spondylosis Aorta aneurysm Mother Cancer Depression Social History Smoking and tobacco status: never smoked Quit status (tobacco): has quit using tobacco Year quit tobacco: 2015 Former quit date comment: 3ppd x 30 years Alcohol intake: current Alcohol intake frequency: 3 or more drinks per day Alcohol type: beer Desire information about alcohol rehabilitation?: No History of recent travel: No Vitals/I&O/Wt Last Vital Signs Temp 97.8 F 07/08/22 20:42 Pulse 105 H 07/09/22 00:07 Resp 21 H 07/09/22 00:07 BP 135/91 07/09/22 00:07 Pulse Ox 95 07/09/22 00:07 O2 Del Method 07/09/22 00:07 07/08/22 07/08/22 07/09/22 14:59 22:59 06:59 Intake Total 1000 / 1000 Balance 1000 / 1000 Weight last 48 hrs Weight 123.377 kg Physical Exam Const: COMMON NORMALS: patient oriented x3 Resp: COMMON NORMALS: clear to auscultation bilaterally AUSCULTATION: clear to auscultation bilaterally Cardio: COMMON NORMALS: regular rate, regular rhythm, S1 normal heart sound present, S2 normal heart sound present, No gallops present (Cardio), No murmurs present (Cardio), No rub (Cardio) and Peripheral pulses 2+ throughout RATE: regular rate RHYTHM: regular rhythm HEART SOUNDS: S1 normal heart sound present and S2 normal heart sound present PERIPHERAL PULSES: Peripheral pulses 2+ throughout GI: COMMON NORMALS: Soft to palpation and non-tender AUSCULTATION: Yes normoactive bowel sounds PALPATION: Yes Soft to palpation and Yes No hepatosplenomegaly present RECTAL EXAM: Yes deferred OTHER: Distended abdomen ,abdominal hernia present Extremity: COMMON NORMALS: no clubbing, cyanosis or edema and no pedal edema Neuro: COMMON NORMALS: patient oriented x3 Data : 07/09/22 03:14 07/09/22 03:14 Micro: Microbiology 07/08/22 22:40 Blood Culture - Preliminary Blood SPECIMEN COLLECTED 07/08/22 22:34 Blood Culture - Preliminary Blood SPECIMEN COLLECTED A&P Assessment and plan (1) Uncontrolled diabetes mellitus: (2) COPD (chronic obstructive pulmonary disease): Qualifiers: COPD type: chronic bronchitis Chronic bronchitis type: simple Qualified Code(s): J41.0 - Simple chronic bronchitis (3) DKA (diabetic ketoacidosis): (4) Hypertension: Qualifiers: Hypertension type: essential hypertension Qualified Code(s): I10 - Essential (primary) hypertension (5) Gout: Qualifiers: Chronicity: chronic Gout etiology: idiopathic Gout site: foot Laterality: unspecified laterality Presence of tophus: without tophus Qualified Code(s): M1A.0790 - Idiopathic chronic gout, unspecified ankle and foot, without tophus (tophi) Plan 52 year old male with past medical history of hypertension recently diagnosed diabetes not on antidiabetic medications currently, gout, COPD, morbid obesity, perforated colon s/p coloectomy and colostomy, abdominal wall hernia ,worked up as outpatient for bariatric surgery came in today with chief complaint of some abdominal discomfort nausea and vomiting. Assessment: Early mild developing DKA: (Primary metabolic acidosis,with secondary respiratory acidosis/additional nongap metabolic acidosis) Uncontrolled diabetes Hypertension COPD Gout Morbid obesity Plan: Currently patient is on DKA protocol Monitor electrolytes closely Monitor fingerstick glucose BMP every 4 hours Continue IV hydration Patient will need antidiabetic medication on discharge as well as diabetic education Follow 2D echo Continue chronic home medications CT abdomen and pelvis is questioning possible early incarceration, clinically does not seem relevant. Lactic acid is normal, no white count. Surgery has been consulted by ER. CODE STATUS full code: DVT prophylaxis: on Lovenox Attestations Medical Necessity Statement*: Patient is to be in hospital for management of DKA.Anticipated length of stay greater than 2 midnights Time Spent in Patient Care: Greater than 35 minutes (>than 50% of time spent in counselling and/or direct pt care on unit). 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
[2022-07-09] MEDS: insulin regular-human 250 UNIT in sodium chloride 0.9% 250 ML 13.4 UNIT IV (00:15)
[2022-07-09 00:32] LABS: Lactic Sepsis W/Reflex 1.3 mmol/L (0.5-2.2)
[2022-07-09 00:33] LABS: Glucose Point of Care 505 mg/dL (70-110)
[2022-07-09] MEDS: sodium chlor 0.9% + KCl 20 mEq 20 MEQ/1,000 ML BAG 125 MEQ IV (00:57)
[2022-07-09] MEDS: enoxaparin 40 mg/0.4 mL Syringe SUBCUT (00:57)
[2022-07-09 01:25] LABS: Glucose Point of Care 382 mg/dL (70-110)
[2022-07-09 02:16] LABS: Glucose Point of Care 294 mg/dL (70-110)
[2022-07-09 03:20] LABS: Glucose Point of Care 215 mg/dL (70-110)
[2022-07-09 03:42] LABS: Basophils % 0.5 %; Eosinophils # 0.2 10^3/uL (0.0-0.8); Eosinophils % 2.3 %; Hematocrit 40.8 % (42.0-52.0); Hemoglobin 14.9 g/dL (11.7-16.6); Lymphocytes # 2.2 10^3/uL (0.8-4.8); Mean Corpuscular HGB Conc 36.5 g/dL (30.0-36.0); Mean Corpuscular Hemoglobin 32.8 pg (28.0-34.0); Mean Corpuscular Volume 89.9 fl (80-94); Mean Platelet Volume 10.8 fL (7.4-10.4); Monocytes # 0.4 10^3/uL (0.2-0.9); Monocytes % 5.5 %; Neutrophils # 3.83 10^3/uL (1.8-7.7); Neutrophils % 58.5 %; Nucleated Red Blood Cells % 0 %; Platelet Count 153 10^3/cmm (130-400); Red Blood Count 4.54 10^6/uL (4.1-5.3); Red Cell Distribution Width 12.9 % (12.1-15.1); White Blood Count 6.5 10^3/uL (4.0-10.0)
[2022-07-09 04:01] LABS: Albumin Level 3.5 g/dL (3.5-5.2); Alkaline Phosphatase 151 U/L (40-130); Blood Urea Nitrogen 14 mg/dL (6-20); Calcium 8.6 mg/dL (8.5-10.5); Carbon Dioxide 22 mmol/L (22-29); Chloride 96 mmol/L (98-107); Globulin 2.9 g/dL (1.3-4.6); Glucose 211 mg/dL (65-115); Magnesium 1.9 mg/dL (1.7-2.3); Osmolality Calculated 277 mOsm/kg (285-295); Phosphorus 2.2 mg/dL (2.5-4.5); Sodium 130 mmol/L (136-145); Total Bilirubin 0.2 mg/dL (0.15-1.2); Total Protein 6.4 g/dL (6.6-8.7)
[2022-07-09 04:04] LABS: Chol HDL Ratio 21.88 mg/dL (1.0-5.00); Cholesterol 372 mg/dL (0-200); HDL Cholesterol 17 mg/dL (60-100)
[2022-07-09] MEDS: dextrose 5%-ns + KCl 20 20 MEQ/1,000 ML BAG 100 MEQ IV (04:04)
[2022-07-09 04:17] LABS: Triglycerides 3607 mg/dL (0-150)
[2022-07-09 04:21] LABS: Glucose Point of Care 172 mg/dL (70-110)
[2022-07-09 04:29] LABS: LDL Cholesterol Direct 27 mg/dL (0-100)
[2022-07-09 05:28] LABS: Glucose Point of Care 165 mg/dL (70-110)
[2022-07-09 05:41] LABS: Anion Gap 15.4 (5-19); Potassium 3.4 mmol/L (3.5-5.1)
[2022-07-09 05:44] LABS: Alanine Aminotransferase 26 U/L (0-41); Aspartate Amino Transferase 25 U/L (0-40)
[2022-07-09] MEDS: perflutren protein-a microsphr 0.22 mg/mL SDV 3 mL IV (05:53)
[2022-07-09 06:27] LABS: Glucose Point of Care 161 mg/dL (70-110)
[2022-07-09] MEDS: insulin glargine 100 units/1 mL 15 UNIT SUBCUT (06:42)
--- NOTE | 2022-07-09 07:27 | PC.NURSE ---
Dr. Vance called and gave verbal order to give 15units of lantus and to stop the insulin drip/ D5 30 minutes after. Order for Potassium to start at that time. Physician put med orders in.
[2022-07-09 07:44] LABS: Glucose Point of Care 158 mg/dL (70-110)
[2022-07-09] MEDS: lidocaine 1% 5 ML in potassium chloride premix 100 ML 50 ML IV (07:50)
[2022-07-09] MEDS: insulin lispro 100 unit/1 mL SUBCUT ×2 (07:50→11:56)
[2022-07-09] MEDS: allopurinol 300 mg Tablet PO (09:27)
[2022-07-09] MEDS: losartan 50 mg Tablet 25 MG PO (09:27)
[2022-07-09] MEDS: phosphorus 250 mg Tablet PO (09:29)
[2022-07-09] MEDS: sertraline 100 mg Tablet 200 MG PO (09:29)
--- NOTE | 2022-07-09 09:44 | PM.CONSULT ---
Providers/Reason For Consult Consulting Physician/Specialty*: Dr. Devyn Lemus, DO/General surgery Reason for Consult*: Abdominal pain Attending Physician: Rey To Primary Care Provider: Celia Maria MD History of Present Illness History of Present Illness Bogdan Vernon is a 52 year old male, with diabetes and a known abdominal wall hernia, who presented to the hospital with nausea and vomiting and some abdominal pain. He was found to be in DKA. CT of the abdomen done for abdominal pain revealed 2 abdominal wall hernias, one containing bowel. He denies any current abdominal pain. His nausea and vomiting have resolved. Denies any hematochezia and/or melena Review of Systems General: Reports: 10 or more systems reviewed and unremarkable except in HPI and below Medications/Allergies Home Medications Medication Instructions Recorded Confirmed Last Taken Type ibuprofen 200 mg capsule 800 mg PO Q6H PRN Pain 04/29/20 07/09/22 12/21/20 History timolol maleate 0.25 % eye drops 1 drop ophthalmic (eye) DAILY@0600 04/29/20 07/09/22 12/21/20 History latanoprost 0.005 % eye drops 1 drp ophthalmic (eye) DAILY@0600 09/03/20 07/09/22 12/21/20 History tizanidine 4 mg capsule 4 mg PO BID PRN Muscle Spasm 03/20/21 07/09/22 Unknown History sildenafil 25 mg tablet 25 mg PO DAILY PRN sexual activity 05/18/21 07/09/22 Unknown Rx #30 tabs albuterol sulfate 90 mcg/actuation 2 puff inhalation QID PRN 12/07/21 07/09/22 Unknown Rx aerosol inhaler (ProAir HFA) shortness of breath or wheezing 30 days #18 grams losartan 25 mg tablet 25 mg PO DAILY 30 days #30 tabs 06/02/22 07/09/22 Unknown Rx quetiapine 50 mg tablet 50 mg PO .at bedtime 90 days #90 06/02/22 07/09/22 Unknown Rx tabs sertraline 100 mg tablet (Zoloft) 200 mg PO DAILY 90 days #180 tabs 06/02/22 07/09/22 Unknown Rx hydroxyzine HCl 25 mg tablet 50 mg PO .AT BEDTIME PRN insomnia 06/28/22 07/09/22 Unknown History allopurinol 300 mg tablet 300 mg PO DAILY 90 days #90 tabs 06/30/22 07/09/22 Unknown Rx fluticasone propionate 50 2 spray intranasal Q12H PRN 07/09/22 07/09/22 Unknown History mcg/actuation nasal Allergy Symptoms spray,suspension (Flonase Allergy Relief) multivit with minerals-folic 1 tab PO DAILY 07/09/22 07/09/22 Unknown History acid-lycopene 0.4 mg-600 mcg tablet naloxone 4 mg/actuation nasal spray 4 mg intranasal Q3M PRN Opioid 07/09/22 07/09/22 Unknown History Overdose Allergies Allergy/AdvReac Type Severity Reaction Status Date / Time adhesive tape Allergy ALGY-Bliste Verified 07/09/22 08:11 r latex Allergy rips skin Verified 07/09/22 08:11 Current Medications Generic Name Dose Route Start Last Admin Trade Name Freq PRN Reason Stop Dose Admin Allopurinol 300 mg 07/09/22 09:00 07/09/22 09:27 Allopurinol 300 Mg Tablet PO 300 mg DAILY ELODIA Administration Enoxaparin Sodium 40 mg 07/09/22 00:00 07/09/22 00:57 Enoxaparin 40 Mg/0.4 Ml Syringe SUBCUT 40 mg Q24H ELODIA Administration Insulin Glargine 15 unit 07/09/22 06:15 07/09/22 06:42 Insulin Glargine 100 Units/1 Ml SUBCUT 15 unit BEDTIME ELODIA Administration Insulin Human Lispro 0 unit 07/09/22 08:00 07/09/22 07:50 Insulin Lispro 100 Unit/1 Ml SUBCUT 2 unit TIDWM ELODIA Administration Protocol Losartan Potassium 25 mg 07/09/22 09:00 07/09/22 09:27 Losartan 50 Mg Tablet PO 25 mg DAILY ELODIA Administration Potassium Phosphate 250 mg 07/09/22 09:00 07/09/22 09:29 Phosphorus 250 Mg Tablet PO 07/09/22 18:01 250 mg BID ELODIA Administration Sertraline HCl 200 mg 07/09/22 09:00 07/09/22 09:29 Sertraline 100 Mg Tablet PO 200 mg DAILY ELODIA Administration PFSH Acute PFSH: Medical History Arthritis of facet joint of lumbar spine Chronic low back pain Colostomy necrosis Depression Gout HTN (hypertension), benign Insomnia Perforation of sigmoid colon due to diverticulitis Surgical History H/O exploratory laparotomy (10/09/20) With revision of colostomy H/O knee surgery Hx of inguinal hernia surgery S/P colostomy takedown (12/24/20) S/P laparoscopic-assisted sigmoidectomy (09/30/20) with colostomy Status post colonoscopy with polypectomy (12/23/20) Family History Father Spondylosis Aorta aneurysm Mother Cancer Depression Social History Smoking and tobacco status: never smoked Quit status (tobacco): has quit using tobacco Year quit tobacco: 2015 Former quit date comment: 3ppd x 30 years Alcohol intake: current Alcohol intake frequency: 3 or more drinks per day Alcohol type: beer Desire information about alcohol rehabilitation?: No History of recent travel: No Vitals/I&O/Wt Last Vital Signs Temp 97.8 F 07/09/22 00:30 Pulse 89 07/09/22 07:20 Resp 19 H 07/09/22 07:20 BP 144/101 07/09/22 09:27 Pulse Ox 85 L 07/09/22 07:20 O2 Del Method 07/09/22 00:36 07/08/22 07/09/22 07/09/22 22:59 06:59 14:59 Intake Total 1000 / 1000 781.25 / 1781.25 406.463 / 406.463 Balance 1000 / 1000 781.25 / 1781.25 406.463 / 406.463 Weight last 48 hrs Weight 275 lb Weight 272 lb Physical Exam Narrative: General : Patient is well developed , no acute distress, oriented x3 Head : Normal cephalic, a-traumatic. Ears : Pinnae and external canal are normal. Hearing is normal. Eyes : PERRLA, Sclera and injection are normal. No conjunctival discharge. Nose : Mucous membranes are without erythema. Throat : buccal mucosa is normal, gums are without significant recession or hypertrophy. Lungs : Equal chest rise bilaterally, no use of accessory muscles, trachea is midline. Cor : Rate and rhythm are normal. Abdomen : Soft, ND, NT, there are reducible abdominal hernias Extremities : No edema, no cyanosis or clubbing, dorsalis pedis pulses are present bilaterally, non-tender to palpation of calves. Upper extremities are normal bilaterally. Back : non-tender to palpation, no CVA tenderness. 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
[2022-07-09 11:35] LABS: Glucose Point of Care 364 mg/dL (70-110)
--- NOTE | 2022-07-09 11:49 | PC.CHAP ---
Pastoral Care Encounter/Spiritual Assessment Type of Contact [] Declined senior investigator visit [] Patient/Family/Request visit [] Outpatient visit [] Follow-up visit [] Physician referral [] Code/Alert [x] Routine visit [] Staff referral [] Actively dying [] Patient sleeping [] Family support [] [] Out of room [] Palliative care [] [] Receiving care in room [] Pre-surgical visit [] Trauma [] Long length of stay [] ICU visit [x] Other: Relational/Emotional Strength [] Patient feels connected with others/family/visitors/staff [] Distress [] Loneliness/isolation [] Abandonment Spirituality of Patient [] Person of Aviva [] Attends Baptism of their Aviva [] Believes in Prayer [] Reads Bible or Zoroastrian materials [] There are Spiritual issues to be addressed Decorating Machine Tender Interventions [x] Prayer [] Active listening [] Non-anxious presence [] Spiritual/emotional support [] Crisis/trauma care [] Spiritual counseling [] Bereavement support [] Provided bereavement packet [] Provided Bible/devotional materials [] Provided toy/stuffed animal, coloring book to patient or family member [] Provided Communion [] Anointing/[place] [] Salvation [x] Completed spiritual assessment [] Other: Impact on Illness or Injury [] Angry [] Fearful [] Anxious [] Often cries [] Exhaustion [] Unable to work [] Unable to attend church [] Unable to walk/stand [] Unable to read [] Unable to drive [] Unable to eat/drink [] Unable to sleep [] Unable to be with family [] Patient intubated [] Other: Summary Time spent with patient
[2022-07-09 14:47] LABS: Lipase 48 U/L (13-60)
[2022-07-09 15:26] LABS: Triglycerides 3019 mg/dL (0-150)
[2022-07-09 15:38] LABS: LDL Cholesterol Direct 32 mg/dL (0-100)
--- NOTE | 2022-07-09 17:07 | P.DS_ITS ---
Discharge Providers Date of Admission: 07/09/22 00:36 Date of Discharge: July 09, 2022 Attending Provider at Admission: Julio C Vance MD Attending Provider at Discharge: Rey To Primary Care Provider: Celia Maria MD Diagnoses at Discharge Discharge Diagnosis (1) Incisional hernia: Status: Acute Reason for Visit Reason for Visit: High Blood Sugar Hospital Course Hospital Course Pleasant 52-year-old gentleman with recently diagnosed diabetes, A1c 10.3, not yet initiated on any treatments, gout, COPD, HTN, obesity, history of exploratory laparotomy, abdominal hernia, was admitted after presenting with nausea, abdominal discomfort, vomiting, recently also with polydipsia, polyuria, on presentation with hyperglycemia, anion gap metabolic acidosis, positive urine ketones, was admitted for assessment of management of diabetic ketoacidosis. Was additionally assessed by surgery due to incidentally noted some subtle haziness adjacent mesentery at the anterior abdominal wall hernia, early incarceration could not be excluded. Received treatment with insulin drip, IV hydration, replacement of potassium, magnesium, phosphorus. His condition improved. Nausea vomiting resolved. He transition to subcutaneous Lantus 15 units, tolerated oral intake. He is feeling much better. At discharge she is given prescription for insulin Lantus 15 units daily, metformin 500 mg twice daily, instructed to continue glucose assessments twice daily, maintain log and follow-up with primary provider. Of note having severe hypertriglyceridemia, triglycerides as high as 3607, lipase checked and normal. No evidence of pancreatitis. However, discussed with him and his /significant triglyceride elevations put him at risk of pancreatitis. Due to this he is initiated also on fenofibrate. Please follow- up therapy for severe hypertriglyceridemia. On assessment by surgery, no acute intervention found needed as hernia is found to be reducible, and recommended continue with plan of weight loss surgery followed by abdominal wall reconstruction in [place]. Physical Exam Narrative: at bedside. Const: COMMON NORMALS: patient oriented x3 and alert GENERAL APPEARANCE: cooperative NUTRITIONAL APPEARANCE: overweight ORIENTATION/CONSCIOUSNESS: Yes awake OTHER: Pleasant, conversant. Appears comfortable. HENMT: COMMON NORMALS: oropharynx normal Neck/C-Spine: COMMON NORMALS: no JVD Resp: COMMON NORMALS: normal respiratory effort and clear to auscultation bilaterally AUSCULTATION: clear to auscultation bilaterally Cardio: COMMON NORMALS: no JVD, regular rhythm, S1 normal heart sound present, S2 normal heart sound present and No murmurs present (Cardio) RHYTHM: regular rhythm HEART SOUNDS: S1 normal heart sound present and S2 normal heart sound present GI: COMMON NORMALS: Normal to inspection, nondistended, normoactive bowel sounds present, Soft to palpation and non-tender PALPATION: Yes Soft to palpation Extremity: COMMON NORMALS: no joint enlargement and no pedal edema Neuro: COMMON NORMALS: patient oriented x3 and moves all extremities SENSORIUM/ORIENTATION: Yes alert Skin: COMMON NORMALS: no rashes or lesions noted GENERAL SKIN EXAM: no gregory hes or lesions noted Discharge Data Studies Completed and Pending Completed Studies During Hospitalization Category Date Time Status CT abdomen pelvis wo con [id number] Stat Cat Scan 07/08/22 22:05 Completed Pending at discharge Category Date Time Status Blood Culture Stat Lab 07/08/22 22:40 Results Complete Blood Count w/Auto AM LABS Lab 07/10/22 04:00 Ordered Complete Blood Count w/Auto AM LABS Lab 07/11/22 04:00 Ordered Complete Blood Count w/Auto AM LABS Lab 07/12/22 04:00 Ordered Comprehensive Metabolic Panel AM LABS Lab 07/10/22 04:00 Ordered Comprehensive Metabolic Panel AM LABS Lab 07/11/22 04:00 Ordered Comprehensive Metabolic Panel AM LABS Lab 07/12/22 04:00 Ordered Lipid Panel AM LABS Lab 07/10/22 04:00 Ordered Magnesium AM LABS Lab 07/10/22 04:00 Ordered Phosphorus AM LABS Lab 07/10/22 04:00 Ordered CV. echo wo/w contrast [id number] Routine Ultrasound 07/09/22 00:05 Taken Radiology Impressions Abdomen/Pelvis CT 07/08/22 22:05 IMPRESSION: 1. There is a new anterior abdominal wall hernia present the right containing nondilated fluid-filled small bowel loops. Some subtle haziness seen in the adjacent mesentery at the hernia hiatus. Early incarceration cannot be excluded. 2. A smaller 2nd ventral wall hernia seen immediately superior to the larger hernia containing some mesenteric fat. 3. Normal appendix 4. Mild diverticulosis of the sigmoid colon 5. Fatty infiltration of the liver ADDENDUM: 07/09/22 0006 CRITICAL RESULT: THIS REPORT CONTAINS FINDINGS THAT MAY BE CRITICAL TO PATIENT CARE. The findings were verbally communicated via telephone conference with Michael Tsai at 12:05 AM CDT on 07/09/2022. The findings were acknowledged and understood. Laboratory Results WBC 6.5 10^3/uL (4.0-10.0) 07/09/22 03:14 RBC 4.54 10^6/uL (4.1-5.3) 07/09/22 03:14 Hgb 14.9 g/dL (11.7-16.6) 07/09/22 03:14 Hct 40.8 % (42.0-52.0) L 07/09/22 03:14 MCV 89.9 fl (80-94) 07/09/22 03:14 MCH 32.8 pg (28.0-34.0) 07/09/22 03:14 MCHC 36.5 g/dL (30.0-36.0) H 07/09/22 03:14 RDW 12.9 % (12.1-15.1) 07/09/22 03:14 Plt Count 153 10^3/cmm (130-400) 07/09/22 03:14 MPV 10.8 fL (7.4-10.4) H 07/09/22 03:14 Neut % (Auto) 58.5 % 07/09/22 03:14 Lymph % (Auto) 33.0 % 07/09/22 03:14 [place] % (Auto) 5.5 % 07/09/22 03:14 Eos % (Auto) 2.3 % 07/09/22 03:14 Baso % (Auto) 0.5 % 07/09/22 03:14 Neut # (Auto) 3.83 10^3/uL (1.8-7.7) 07/09/22 03:14 Lymph # (Auto) 2.2 10^3/uL (0.8-4.8) 07/09/22 03:14 [place] # (Auto) 0.4 10^3/uL (0.2-0.9) 07/09/22 03:14 Eos # (Auto) 0.2 10^3/uL (0.0-0.8) 07/09/22 03:14 Baso # (Auto) 0.0 10^3/uL (0.0-0.1) 07/09/22 03:14 Nucleated RBC % (auto) 0 % 07/09/22 03:14 Nucleated RBCs # 0.0 /100WBC 07/09/22 03:14 Specimen Type Arterial 07/08/22 21:36 Sample Site Radial, left 07/08/22 21:36 ABG pH 7.37 (7.35-7.45) 07/08/22 21:36 ABG pCO2 40.1 mmHg (35-45) 07/08/22 21:36 ABG pO2 70.9 mmHg (80.0-100.0) L 07/08/22 21:36 ABG HCO3 23.3 mmol/L (22-26) 07/08/22 21:36 ABG Base Excess -1.8 mmol/L (-2.0-2.0) 07/08/22 21:36 Jevon Test Pos 07/08/22 21:36 Hematocrit 45.8 % (42-52) 07/08/22 21:36 O2 Delivery Device None 07/08/22 21:36 FiO2 21.0 % 07/08/22 21:36 Bleach Liquor Maker ID [place] 07/08/22 21:36 Sodium 130 mmol/L (136-145) L 07/09/22 03:14 Potassium 3.4 mmol/L (3.5-5.1) L 07/09/22 03:14 Chloride 96 mmol/L (98-107) L 07/09/22 03:14 Carbon Dioxide 22 mmol/L (22-29) 07/09/22 03:14 Anion Gap 15.4 (5-19) 07/09/22 03:14 BUN 14 mg/dL (6-20) 07/09/22 03:14 Creatinine 0.6 mg/dL (0.7-1.2) L 07/09/22 03:14 GFR Calculation 142.0 mL/min (90-130) H 07/09/22 03:14 Glucose 211 mg/dL (65-115) H 07/09/22 03:14 POC Glucose 364 mg/dL (70-110) H 07/09/22 11:30 Calculated Osmolality 277 mOsm/kg (285-295) L 07/09/22 03:14 Lactic Acid 1.3 mmol/L (0.5-2.2) 07/08/22 21:10 Calcium 8.6 mg/dL (8.5-10.5) 07/09/22 03:14 Phosphorus 2.2 mg/dL (2.5-4.5) L 07/09/22 03:14 Magnesium 1.9 mg/dL (1.7-2.3) 07/09/22 03:14 Total Bilirubin 0.2 mg/dL (0.15-1.2) 07/09/22 03:14 AST 25 U/L (0-40) 07/09/22 03:14 ALT 26 U/L (0-41) 07/09/22 03:14 Alkaline Phosphatase 151 U/L (40-130) H 07/09/22 03:14 Total Protein 6.4 g/dL (6.6-8.7) L 07/09/22 03:14 Albumin 3.5 g/dL (3.5-5.2) 07/09/22 03:14 Globulin 2.9 g/dL (1.3-4.6) 07/09/22 03:14 Triglycerides 3019 mg/dL (0-150) H 07/09/22 14:38 Cholesterol 372 mg/dL (0-200) H 07/09/22 03:14 LDL Cholesterol Direct 32 mg/dL (0-100) 07/09/22 14:38 LDL Cholesterol, Calc Not Reportable 07/09/22 03:14 HDL Cholesterol 17 mg/dL (60-100) L 07/09/22 03:14 LDL/HDL Ratio Not Reportable 07/09/22 03:14 Cholesterol/HDL Ratio 21.88 mg/dL (1.0-5.00) H 07/09/22 03:14 Lipase Cancelled 07/09/22 14:38 Urine Color Colorless (Yellow) 07/08/22 21:30 Urine Appearance Clear (CLEAR) 07/08/22 21:30 Urine pH 5 (5-7) 07/08/22 21:30 Ur Specific [place] 1.010 (1.005-1.030) 07/08/22 21:30 Urine Protein Neg (Negative) 07/08/22 21:30 Urine Glucose (UA) 4+ (Normal) H 07/08/22 21:30 Urine Ketones 1+ (Negative) H 07/08/22 21:30 Urine Blood Neg (Negative) 07/08/22 21:30 Urine Nitrate Negative (Negative) 07/08/22 21:30 Urine Bilirubin Neg (Negative) 07/08/22 21:30 Urine Urobilinogen Norm mg/dL (Negative) 07/08/22 21:30 Ur Leukocyte Esterase Negative (Negative) 07/08/22 21:30 Serum Ketones Negative (Negative) 07/08/22 21:30 Vitals Last Vital Signs Temp 98.7 F 07/09/22 16:19 Pulse 90 07/09/22 16:19 Resp 14 07/09/22 16:19 BP 130/76 07/09/22 16:19 Pulse Ox 94 07/09/22 16:19 O2 Del Method 07/09/22 16:10 Discharge Plan Discharge Patient Disposition: Home Condition: Stable Prescriptions: New insulin degludec 100 unit/mL (3 mL) insulin pen 15 unit SUBCUT DAILY Qty: 15 0RF metformin 500 mg tablet 500 mg PO BID Qty: 180 0RF fenofibrate 150 mg capsule 150 mg PO DAILY Qty: 90 0RF Continued tizanidine 4 mg capsule 4 mg PO BID PRN (Reason: Muscle Spasm) sildenafil 25 mg tablet 25 mg PO DAILY PRN (Reason: sexual activity) Qty: 30 0RF Rx Instructions: administer 30 minutes to 4 hours before activity timolol maleate 0.25 % drops 1 drop ophthalmic (eye) DAILY@0600 ibuprofen 200 mg capsule 800 mg PO Q6H PRN (Reason: Pain) latanoprost 0.005 % drops 1 drp ophthalmic (eye) DAILY@0600 albuterol sulfate [ProAir HFA] 90 mcg/actuation HFA aerosol inhaler 2 puff inhalation QID PRN (Reason: shortness of breath or wheezing) 30 Days Qty: 18 5RF allopurinol 300 mg tablet 300 mg PO DAILY 90 Days Qty: 90 1RF Rx Instructions: for gout hydroxyzine HCl 25 mg tablet 50 mg PO .AT BEDTIME PRN (Reason: insomnia) Rx Instructions: 1-2 tabs as directed by quetiapine 50 mg tablet 50 mg PO .at bedtime 90 Days Qty: 90 1RF sertraline [Zoloft] 100 mg tablet 200 mg PO DAILY 90 Days Qty: 180 1RF losartan 25 mg tablet 25 mg PO DAILY 30 Days Qty: 30 2RF naloxone 4 mg/actuation [place],Non-Aerosol 4 mg INTRANASAL Q3M PRN (Reason: Opioid Overdose) Rx Instructions: spray 1 dose into ONE nostril; alternate nostrils w each dose until help arrives Flonase Allergy Relief 50 mcg/actuation spray,suspension 2 spray intranasal Q12H PRN (Reason: Allergy Symptoms) Rx Instructions: administer into each nostril multivit with [id number] 0.4-600 mg-mcg Tablet 1 tab PO DAILY Discharge Orders: Discharge Order (Routine); Ordered 07/09/22 Ordered By: Rey oT Referrals: Celia Maria MD [Primary Care Provider] - 4-7 days (Uncontrolled DM, DKA, hypertriglyceridemia appointment scheduled: June at time of 08:45 am ) Discharge Diet: Cardiac and Low Fat Discharge Activity: Increase activity as tolerated Patient Instructions: Metformin (By mouth), Fenofibrate (By mouth), Insulin Degludec (By injection) (Tresiba), Insulin Degludec (By injection), Low Fat Diet (GEN), Diabetic Ketoacidosis (GEN), Foot Care for People with Diabetes (DC), Type 1 Diabetes in Adults: New Diagnosis (DC), How to Give an Insulin Injection (GEN), Basic Carbohydrate Counting (DC), Meal Planning with Diabetes Exchanges (DC), Insulin Pens (GEN), Hyperlipidemia (GEN), Incisional Hernia (GEN), What to Do if Your Blood Sugar is Low (GEN), How to Check your Blood Sugar (GEN) Activity Restrictions/Additional Instructions: Please follow-up with your primary doctor for reassessment after DKA, continue optimization of diabetes control. Please measure blood glucose at least twice a day, write down values to bring to your appointment. Continue long-acting insulin daily. Hold insulin in case her blood sugar is lower than 70. In case blood glucose lower than 100, decrease long-acting insulin dose by 5 units. In case blood glucose persistently elevated above 150, without any lower values, increase long-acting insulin dose by 2-3 units/day. Please follow-up with your primary doctor for reassessment of high triglyceride levels. Due to elevated level that may risk causing pancreatitis you are started on fenofibrate. Discharge Attestations Time Spent in Discharge Care*: greater than 30 min Quality Metrics Clinical Quality Measures [ No reported AMI, CVA or VTE this stay] Coding Level of Care Code Acute Chg FW DC note Diagnoses Incisional hernia K43.2
[2022-07-09 17:28] LABS: Glucose Point of Care 359 mg/dL (70-110)
--- NOTE | 2022-07-09 17:28 | PC.NURSE ---
1705- Extensive education on type one diabetes provided to patient and at bedside. Written education provided. All discharge education reviewed with patient and family at bedside and highlights made to paperwork. Patient and family had no questions, but was advised to call with any questions if needed. Encouraged to follow up with providers and monitor glucose. Patient verbalized understanding of all teachings.
== END 2022-07-09 17:10 | disposition home or self-care (01) | DRG 639 ==
LOC: ER 23:46 → ICU 23:57
PROVIDERS: Admitting Provider Internal Medicine; Emergency Provider Emergency Medicine; PCP Family Medicine; Visit Provider Internal Medicine
DX: E11.10 Type 2 diabetes mellitus with ketoacidosis without coma (principal); K43.9 Ventral hernia without obstruction or gangrene; E78.1 Pure hyperglyceridemia; K43.2 Incisional hernia without obstruction or gangrene; I10 Essential (primary) hypertension; E66.01 Morbid (severe) obesity due to excess calories; Z68.39 Body mass index [BMI] 39.0-39.9, adult
CPT/HCPCS: 36415; 36416; 36600; 74176; 80053; 80061; 81003; 82009; 82803; 82962; 83605; 83690; 83721; 83735; 84100; 84478; 85025; 87040; 96361; 96365; 96372; 96375; 99285; C8929; J1650; J1815; J3475; J3480; J7030; J7050; Q9956

== ENCOUNTER 2022-07-16 07:17 | Outpatient (CLI) | payer BC, SELFPAY ==
--- NOTE | 2022-07-16 | ECG_ITS ---
[facility] Test Date: 2022-07-16 Pat Name: Bogdan Vernon Department: Room: Gender: Male Medicare Sales Representative: : 1970 Requested By: Sarah Mast Order Number: [id number] Ramírez MD: Sarah Mast M.D. Interpretive Statements NAME OF STUDY: EXERCISE SESTAMIBI STRESS TEST INDICATION: Preop surgical clearance Baseline blood pressure of 126/86 mm Hg, heart rate of 95 beats per minute and oxygen saturation of 95%. EKG showed normal sinus rhythm, normal axis with normal ST-Ts. The patient exercised for 6 minutes 16 seconds on a standard González protocol. Patient attained a maximum heart rate of 145 beats per minute(85% of the maximum predicted heart rate) with a blood pressure at the peak exercise of 151/79 mm Hg and oxygen saturation 94%. The EKG at the peak exercise revealed sinus tachycardia with nonspecific ST-T wave changes. Patient did not have any chest pain or any significant arrhythmis with the exercise. The study was terminated to maximal effort. During the recovery phase, there were no new changes. Blood pressure at the end of the recovery phase was 151/89 mm Hg with a heart rate of 105 beats per minute and oxygen saturation 95%. CONCLUSION: 1. Normal EKG response to treadmill exercise. 2. No exercise-induced chest pain or cardiac arrhythmia. 3. Fair exercise tolerance, attained a maximum of 7 METs. 4. Baseline normal blood pressure with normal response to exercise. 5. Perfusion scan will be documented separately. Electronically Signed On 07-19-2022 16:32:13 CDT by Sarah Mast M.D. [id number]
[2022-07-16 08:00] VITALS: BMI 38.7
--- NOTE | 2022-07-16 08:15 | NMCV_ITS ---
NM paulino perf SPECT r/s* [id number] Bogdan Vernon Age: 52 Gender: M : 1970 Exam Date: 07/16/2022 09:17 Ordering Phys: Sarah Mast MD ([email or web address]) Technologist: RAJI Chen Exam Location: [facility] Indications: SHORTNESS OF BREATH STRESS TEST Please see separate stress test report in [facility] for full findings IMAGE PROTOCOL Rest/Stress 1 Exercise Day Radiopharmaceutical Dose (mCi) Administration Site Administered by Rest: Tc-99m 10.4 IV RAJI Leija Sestamibi Stress:Tc-99m 33.0 IV RAJI Leija Sestamibi Rest: 16-Jul-2022 60 Discovery 630 Stress: 16-Jul-2022 15 Discovery 630 Radiopharmaceutical was injected at 85 % maximum heart rate. Supine position only as patient was unable to lay prone due to hernia. SPECT RESULTS Technical Quality: Excellent Raw Data Analysis: Normal Image Corrections: No attenuation or motion correction applied Summed Stress Score: 0 Summed Rest Score: 0 Summed Difference Score: 0 PERFUSION FINDINGS SPECT images demonstrate homogeneous tracer distribution throughout the myocardium. FUNCTIONAL RESULTS (calculated via Gated SPECT) Stress Image LV EF (%): 63 Stress EDV (mL):84 TID: 0.91 Stress ESV (mL):31 FUNCTIONAL FINDINGS: The left ventricle is normal in size. Transient Ischemia Dilatation of 0.91. The left ventricular ejection fraction is normal with a value of 63%. There is normal left ventricular wall thickening. Normal end-diastolic and end-systolic volumes. IMPRESSIONS 1. Myocardial perfusion imaging is normal. 2. Overall left ventricular systolic function is normal without regional wall motion abnormalities,LVEF=63%. 3. EKG portion of the study will be reported separately. Sarah Mast MD (Electronically Signed) Final Date: 19 July 2022 16:30 S
[2022-07-16 10:19] VITALS: BP 151/86; PULSE 105
== END 2022-07-16 07:18 | disposition home or self-care (01) ==
PROVIDERS: PCP Family Medicine; Visit Provider Internal Medicine Cardiovascular Disease
DX: R07.9 Chest pain, unspecified (principal); R06.02 Shortness of breath
CPT/HCPCS: 78452; 93017; A9500

== ENCOUNTER → 2022-09-14 10:47 | Outpatient (BNVA) | payer BC, SELFPAY | PROVIDERS: PCP Family Medicine; Visit Provider Internal Medicine | DX: E11.65 Type 2 diabetes mellitus with hyperglycemia (principal); E78.1 Pure hyperglyceridemia; R79.89 Other specified abnormal findings of blood chemistry | CPT/HCPCS: 80053; 80061; 82043; 83036; 84439; 84443; 84681 ==

== ENCOUNTER → 2023-03-09 08:33 | Outpatient (BNVA) | payer BC, SELFPAY | PROVIDERS: PCP Family Medicine; Visit Provider Family Medicine | DX: R53.83 Other fatigue (principal) | CPT/HCPCS: 80053; 80061; 83036; 84443; 85025 ==

== ENCOUNTER → 2023-06-07 08:45 | Outpatient (BNVA) | payer BC, SELFPAY | PROVIDERS: PCP Family Medicine; Visit Provider Family Medicine | DX: E78.1 Pure hyperglyceridemia; E11.65 Type 2 diabetes mellitus with hyperglycemia; M25.50 Pain in unspecified joint | CPT/HCPCS: 80053; 80061; 83036; 85651; 86038; 86140 ==

== ENCOUNTER → 2023-11-09 08:39 | Outpatient (BNVA) | payer BC, SELFPAY | PROVIDERS: PCP Family Medicine; Visit Provider Family Medicine | DX: M54.2 Cervicalgia (principal) | CPT/HCPCS: 72040 ==

== ENCOUNTER 2024-02-19 09:49 | Emergency (ER) | payer MEDICARE, OTHER, SELFPAY ==
[2024-02-19 09:50] VITALS: BP 150/90; PULSE 93; RESP 18; TEMP 36.4; O2SAT 97
--- NOTE | 2024-02-19 09:59 | XRR_ITS ---
PROCEDURE INFORMATION: Exam: XR Left Hand Exam date and time: 02/19/2024 10:12 AM Age: 53 years old Clinical indication: Injury or trauma; Other: Crushing injury; Left; Index finger TECHNIQUE: Imaging protocol: Radiologic exam of the left hand. Views: 3 or more views. COMPARISON: No relevant prior studies available. FINDINGS: Bones/joints: Comminuted fracture at the tuft of the distal phalanx of the index finger. There is a oblique dorsal displaced fracture of the shaft of the middle phalanx of the index finger. No intra-articular extension. Well corticated bone fragment at the radial aspect of the trapezium, representing an old injury. Soft tissues: Soft tissue defect at the tip of the index finger. XR/XR hand LT min 3V* [id number] IMPRESSION: Fractures of the middle and distal phalanges of the index finger with soft tissue defect at its tip.
[2024-02-19 10:06] VITALS: RESP 98
[2024-02-19] MEDS: ondansetron 2 mg/ML SDV 2 mL 4 MG IVP (10:06)
[2024-02-19] MEDS: morphine 4 mg/mL SDV 1 mL IVP (10:06)
--- NOTE | 2024-02-19 10:14 | ED_ITS ---
HPI - Wound/Laceration General: Chief Complaint: Wound/Laceration Stated Complaint: left index finger lac Time Seen by Provider: 02/19/24 09:51 Source: patient Mode of arrival: ambulatory Limitations: no limitations History of Present Illness: 53-year-old male states he got his left index finger caught in a wench yesterday afternoon. He went to [facility] and had an x-ray that showed tuft fracture he has a partial amputation distal tip of the finger with laceration he had left there before being seen due to wait time has not been seen since he had the injury. Bleeding controlled he does have pain he rates a 5 out of 10. Associated symptoms: Denies chills, fever(s), nausea or vomiting Review of Systems Const: Denies: fever(s), chills, body aches or change in appetite ENMT: Denies: throat pain or dental pain Card: Denies: chest pain Resp: Denies: dyspnea GI: Denies: abdominal pain, nausea, vomiting or diarrhea Musc: Reports: extremity pain; Denies: neck pain or back pain Skin/Breast: Denies: rash Neuro: Denies: headache(s) PFSH ED PFSH: Medical History Perforation of sigmoid colon due to diverticulitis Insomnia Failed hydroxyzine Depression Colostomy necrosis HTN (hypertension), benign Arthritis of facet joint of lumbar spine Chronic low back pain Gout Surgical History S/P colostomy takedown (12/24/20) Status post colonoscopy with polypectomy (12/23/20) H/O exploratory laparotomy (10/09/20) With revision of colostomy S/P laparoscopic-assisted sigmoidectomy (09/30/20) with colostomy H/O knee surgery Hx of inguinal hernia surgery Family History Father Spondylosis Aorta aneurysm Mother Cancer Depression Social History Smoking and tobacco/nicotine status: never used tobacco/nicotine Quit status (tobacco/nicotine): has quit using Year quit tobacco: 2015 Former quit date comment: 3ppd x 30 years Alcohol intake: current Alcohol intake frequency: 3 or more drinks per day Alcohol type: beer Substance/Drug Use: never Physical Exam Const: COMMON NORMALS: no acute distress, patient oriented x3 and healthy appearing HENMT: COMMON NORMALS: normocephalic and atraumatic HEAD & SCALP: normocephalic and atraumatic Eye: COMMON NORMALS: conjunctivae normal CONJUNCTIVA: Yes conjunctivae normal Neck/C-Spine: COMMON NORMALS: full ROM and supple Chest: COMMONS NORMALS: normal inspection of the chest Resp: COMMON NORMALS: normal respiratory effort Cardio: COMMON NORMALS: regular rate RATE: regular rate Extremity: NARRATIVE EXTREMITY EXAM: Laceration to the distal tip of left index finger complicated Y-shaped partial amputation to the distal portion of the finger nail and nail beds intact Neuro: COMMON NORMALS: patient oriented x3, moves all extremities and no focal motor deficits Psych: COMMON NORMALS: mental status grossly normal, Normal thought process present and cooperative THOUGHT PROCESS: Normal thought process present Skin: COMMON NORMALS: no rashes or lesions noted and no wounds GENERAL SKIN EXAM: no rashes or lesions noted Procedures Laceration Laceration 1: Site: hand Side (If applicable): left Size (cm): 4 Description: irregular Depth: simple, single layer Local Anesthetic: bupivacaine 0.5% Amount of anesthesia used (mL): 8 Pre-repair: wound explored and irrigated extensively Skin layer closed with: nylon Size (cm): 5-0 Number of sutures: 13 Technique: simple, interrupted Course Vital Signs: Vital signs: Vital Signs Temperature 97.5 F L 02/19/24 09:50 Pulse Rate 93 02/19/24 09:50 Respiratory Rate 98 H 02/19/24 10:06 Blood Pressure 150/90 02/19/24 09:50 Pulse Oximetry 97 02/19/24 09:50 Oxygen Delivery Me thod Room Air 02/19/24 09:50 MDM - Wound/Laceration Medical Decision Making Patient presents for distal tip laceration along with fractures did repair the lacerations placed him in a splint we will place him on antibiotics he is to follow-up with orthopedics return if worsening he understands agrees to plan Medical Records I reviewed the patient's medical records. Lab Data Radiology Impressions Hand X-Ray 02/19/24 09:59 IMPRESSION: Fractures of the middle and distal phalanges of the index finger with soft tissue defect at its tip. All radiology interpretation(s) finalized by discharge Discharge Plan Discharge Patient Disposition: Home Clinical Impression: Finger laceration Finger fracture, left Qualifiers: Encounter type: initial encounter Finger: index finger Condition: Stable Prescriptions: New hydrocodone-acetaminophen 5-325 mg tablet 1 tab PO Q6H PRN (Reason: pain) Qty: 14 0RF Augmentin 500-125 mg tablet 1 tab PO BID Qty: 14 0RF No Action allopurinol 300 mg tablet 300 mg PO DAILY 90 Days Qty: 90 1RF Rx Instructions: for gout albuterol sulfate [ProAir HFA] 90 mcg/actuation HFA aerosol inhaler 2 puff inhalation QID PRN (Reason: shortness of breath or wheezing) 30 Days Qty: 18 5RF tadalafil 10 mg tablet 10 mg PO DAILY MDD 1 tab PRN (Reason: sexual activity) Qty: 30 0RF Rx Instructions: administer approximately 30min before sexual activity icosapent ethyl [Vascepa] 1 gram capsule 2 g PO BID Qty: 36 0RF levetiracetam [Keppra] 500 mg tablet 500 mg PO BID sertraline [Zoloft] 100 mg tablet 200 mg PO DAILY 90 Days Qty: 180 1RF buspirone 7.5 mg tablet 7.5 mg PO BID 90 Days Qty: 180 1RF fenofibrate nanocrystallized 145 mg tablet 145 mg PO DAILY 90 Days Qty: 90 3RF baclofen 20 mg tablet See Rx Instructions .ROUTE .COMPLEX Qty: 60 5RF Dose Instruction: TAKE 1 TABLET BY MOUTH TWICE DAILY NEEDED FOR MUSCLE SPASM Rx Instructions: TAKE 1 TABLET BY MOUTH TWICE DAILY NEEDED FOR MUSCLE SPASM quetiapine 100 mg tablet See Rx Instructions .ROUTE .COMPLEX Qty: 135 0RF Dose Instruction: TAKE 1 & 1/2 (ONE & ONE-HALF) TABLETS BY MOUTH AT BEDTIME Rx Instructions: TAKE 1 & 1/2 (ONE & ONE-HALF) TABLETS BY MOUTH AT BEDTIME diclofenac sodium 50 mg tablet,delayed release (DR/EC) See Rx Instructions .ROUTE .COMPLEX Qty: 60 0RF Dose Instruction: TAKE 1 TABLET BY MOUTH EVERY 12 HOURS NEEDED FOR PAIN Rx Instructions: TAKE 1 TABLET BY MOUTH EVERY 12 HOURS NEEDED FOR PAIN naloxone 4 mg/actuation [place],Non-Aerosol 4 mg INTRANASAL Q3M PRN (Reason: Opioid Overdose) Rx Instructions: spray 1 dose into ONE nostril; alternate nostrils w each dose until help arrives Flonase Allergy Relief 50 mcg/actuation spray,suspension 2 spray intranasal Q12H PRN (Reason: Allergy Symptoms) Rx Instructions: administer into each nostril multivit with [id number] 0.4-600 mg-mcg Tablet 1 tab PO DAILY Discharge Orders: Discharge ED (Routine); Ordered 02/19/24 Ordered By: Michelle Shea Referrals: Rudy Cervantes DO [Physician] - 1-3 days Celia Maria MD [Primary Care Provider] - Discharge Diet: Advance as tolerated Discharge Activity: Resume usual activity Patient Instructions: Care For Your Stitches (ED), Finger Fracture (ED), Finger Laceration (ED), Opioid Safety Coding Level of Care Code ED Dictaphone Transcriber for Jb Morales
[2024-02-19] MEDS: BUPivacaine 0.5% INJ 10 mL INJECTION (10:20)
[2024-02-19 10:58] VITALS: BP 141/92; PULSE 84; RESP 17; O2SAT 97
--- NOTE | 2024-02-19 10:59 | DCPLANNER ---
Sent follow up request to the Ortho clinic 02/19/24 1100
== END 2024-02-19 10:59 | disposition home or self-care (01) ==
PROVIDERS: Emergency Provider Emergency Medicine; PCP Family Medicine
DX: S62.631A Displaced fracture of distal phalanx of left index finger, initial encounter for closed fracture (principal); S62.621A Displaced fracture of middle phalanx of left index finger, initial encounter for closed fracture; S61.211A Laceration without foreign body of left index finger without damage to nail, initial encounter; S68.121A Partial traumatic metacarpophalangeal amputation of left index finger, initial encounter; Z87.891 Personal history of nicotine dependence; I10 Essential (primary) hypertension; W31.89XA Contact with other specified machinery, initial encounter
CPT/HCPCS: 12002; 73130; 96374; 96375; 99284; J2270; J2405; J3490

== ENCOUNTER → 2024-07-23 08:29 | Outpatient (BNVA) | payer OTHER, MEDICARE, SELFPAY | PROVIDERS: PCP Family Medicine; Visit Provider Family Medicine | DX: I10 Essential (primary) hypertension (principal); E11.9 Type 2 diabetes mellitus without complications | CPT/HCPCS: 80053; 80061; 83036 ==

== ENCOUNTER → 2025-08-05 08:38 | Outpatient (BNVA) | payer OTHER, MEDICARE, SELFPAY | PROVIDERS: PCP Family Medicine; Visit Provider Family Medicine | DX: M10.9 Gout, unspecified (principal); M1A.0790 Idiopathic chronic gout, unspecified ankle and foot, without tophus (tophi); R79.89 Other specified abnormal findings of blood chemistry; E78.1 Pure hyperglyceridemia; E11.9 Type 2 diabetes mellitus without complications; I10 Essential (primary) hypertension | CPT/HCPCS: 80053; 80061; 83036; 84443; 84550; 85025 ==